=== PATIENT | male | born 1950 | race Caucasian/White ===

== ENCOUNTER 2018-12-01 20:55 | Inpatient (IN) | payer MEDICARE ==
[~2018-12-01] VITALS: Ht 172.7 cm; Wt 140.1 kg
[2018-12-01 21:49] LABS: BASOPHILS ABSOLUTE AUTO 0.02 K/mm3 (0.00-0.23); BASOPHILS PERCENT AUTO 0 % (0-2); EOSINOPHILS ABSOLUTE AUTO 0.03 K/mm3 (0.00-0.68); EOSINOPHILS PERCENT AUTO 0 % (0-6); Hematocrit 32.5 % (37.0-53.0); Hemoglobin 10.9 g/dL (13.5-17.5); IMMATURE GRAN ABSOLUTE AUTO 0.22 K/mm3 (0.00-0.10); IMMATURE GRAN PERCENT AUTO 2 % (0-1); LYMPHOCYTES ABSOLUTE AUTO 0.57 K/mm3 (0.84-5.20); LYMPHOCYTES PERCENT AUTO 5 % (21-46); MONOCYTES ABSOLUTE AUTO 1.04 K/mm3 (0.16-1.47); MONOCYTES PERCENT AUTO 9 % (4-13); Mean Corpuscular HGB 30.1 pg (26.0-34.0); Mean Corpuscular HGB Conc 33.5 g/dL (31.5-36.5); Mean Corpuscular Volume 90 fL (80-100); Mean Platelet Volume 8.8 fL (9.1-12.4); NEUTROPHILS PERCENT AUTO 85 % (41-73); Platelet Count 296 K/mm3 (150-400); RDW Coefficient Variation 13.9 % (11.7-14.2); RDW Standard Deviation 46.2 fL (35.1-46.3); Red Blood Cell Count 3.62 M/mm3 (4.30-5.90); White Blood Cell Count 12.28 K/mm3 (4.00-11.30)
[2018-12-01] MEDS ORDERED: ISODIN20 PO (22:03)
[2018-12-01] MEDS ORDERED: LISI20 PO (22:03)
[2018-12-01] MEDS ORDERED: Zanaflex4 M1 PO (22:04)
[2018-12-01 22:09] LABS: Troponin I <0.015 ng/mL (0.000-0.040)
[2018-12-01 22:19] LABS: Alanine Aminotransfer (ALT/SGP 37 U/L (12-78); Albumin, Blood 2.5 g/dL (3.4-5.0); Albumin/Globulin Ratio 0.7 (0.8-1.8); Alk Phos 91 U/L (50-136); Anion Gap 9 mmol/L (6-16); Aspartate Aminotrans (AST/SGOT 74 U/L (12-37); Bilirubin, Total 0.4 mg/dL (0.1-1.0); Blood Urea Nitrogen 6 mg/dL (8-24); Bun/Creatinine Ratio 11.5 (12.0-20.0); CO2, Blood 22 mmol/L (21-32); Calcium, Blood 7.7 mg/dL (8.5-10.1); Chloride, Blood 83 mmol/L (98-108); Creatinine, Blood 0.52 mg/dL (0.60-1.20); Globulin, Blood 3.7 g/dL (2.2-4.0); Glomerular Filtration Rate >60 (60-); Glucose, Blood 135 mg/dL (70-99); Potassium, Blood 4.3 mmol/L (3.5-5.5); Sodium, Blood 114 mmol/L (136-145); Total Protein, Blood 6.2 g/dL (6.4-8.2)
--- NOTE | 2018-12-02 01:30 | NUR ---
PT ARRIVED TO ICU 15 FROM ER VIA RDISPUTANTA. ACCOMPANIED BY BOARDING MOTHER. PT WAS SOAKING WET WITH URINE. SKIN IS EXCORIATED IN PERIAREA AND DOWN LEGS. ALSO APPEARS TO HAVE YEAST RASH T/O. SEE PHOTOS. PT ALSO HAS BLISTERS TO BILAT FEET. SCROTUM AND PANNUS IS EDEMATOUS. WILL PLACE ANTON DUE TO INCREASED URINE OUTPUT AND SKIN CONDITION. WILL PUT IN SOCIAL SERVICE CONSULT. REPORT FROM ER STATES PT HAS A GUARDIAN THAT HAS BEEN APPOINTED TO HIM RECENTLY. PT KNOWS HE IS IN "THE [facility]", [place], AND [facility]. OTHER QUESTIONS PERTAINING TO ORIENTATION PT JUST STATES "NOPE". GETS SOB WITH EXERTION BUT SPO2 IN THE 90'S.
[2018-12-02 02:16] LABS: Source, Urine Catheter
[2018-12-02 02:19] LABS: Bilirubin, Urine Neg (Neg); Blood, Urine 1+ (Neg); Glucose Qualitative, Urine Neg (Neg); Ketones, Urine Neg (Neg); Leukocyte Esterase, Urine Neg (Neg); Nitrite, Urine Neg (Neg); Protein, Urine 2+ (Neg); Specific Gravity, Urine 1.005 (1.003-1.022); Urobilinogen, Urine NORM (Normal); pH, Urine 6.5 (5.0-8.0)
[2018-12-02 02:31] LABS: Appearance, Urine Clear (Clear); Bacteria Not Seen /hpf; Color, Urine Pale Yellow (P-Yellow); Color, Urine Yellow (P-Yellow); Hyaline Casts 0-2 /lpf (0-2); Red Blood Cells, Urine 0-2 /hpf (0-2); Squamous Epithelial Cells Not Seen /hpf (Few); White Blood Cells, Urine Not Seen /hpf (0-5)
[2018-12-02 03:15] LABS: Influenza A Negative (NEGATIVE); Influenza B Negative (NEGATIVE)
[2018-12-02 04:09] LABS: Hemoglobin 11.9 g/dL (13.5-17.5); Mean Corpuscular HGB 30.1 pg (26.0-34.0); Mean Corpuscular Volume 88 fL (80-100); Mean Platelet Volume 8.5 fL (9.1-12.4); Platelet Count 316 K/mm3 (150-400); RDW Coefficient Variation 13.8 % (11.7-14.2); RDW Standard Deviation 44.5 fL (35.1-46.3); Red Blood Cell Count 3.96 M/mm3 (4.30-5.90); White Blood Cell Count 9.55 K/mm3 (4.00-11.30)
[2018-12-02 04:23] LABS: International Normalized Ratio 0.99; Prothrombin Time Results 10.5 Sec (9.7-11.5)
[2018-12-02 05:07] LABS: Anion Gap 7 mmol/L (6-16); Blood Urea Nitrogen 6 mg/dL (8-24); Bun/Creatinine Ratio 11.4 (12.0-20.0); CO2, Blood 26 mmol/L (21-32); Calcium, Blood 8.3 mg/dL (8.5-10.1); Chloride, Blood 88 mmol/L (98-108); Creatinine, Blood 0.53 mg/dL (0.60-1.20); Glomerular Filtration Rate >60 (60-); Glucose, Blood 101 mg/dL (70-99); Magnesium, Blood 1.8 mg/dL (1.6-2.4); Potassium, Blood 4.2 mmol/L (3.5-5.5); Sodium, Blood 121 mmol/L (136-145)
--- NOTE | 2018-12-02 06:19 | NUR ---
SUMMARY PT HAS BEEN SLEEPING ON AND OFF SINCE ARRIVAL TO ICU. PT IS ORIENTED TO PERSON, PLACE, AND PRESIDENT. OTHERWISE OTHER QUESTIONS HE'LL SAY "NO". WILL WAKE UP AND SAY "PAIN SHOT" THEN GO RIGHT BACK TO SLEEP. SODIUM IMPROVED TO [address] BARRIGA AND NEW ORDERS RECEIVED TO DECREASE 3% TO 20ML/HR. PT HAS HAD 4950ML OF URINE OUTPUT SINCE CATHETER PLACEMENT AROUND 0200. BREATHING HAS IMPROVED AND SPO2 IN THE 90'S.
[2018-12-02] MEDS ORDERED: Isosorbide Mono60 MG PO (06:45)
[2018-12-02] MEDS ORDERED: ARIP10 PO (06:48)
[2018-12-02] MEDS ORDERED: Aspirin EC81 MG PO (06:48)
[2018-12-02] MEDS ORDERED: BUDE6HFA INH (06:49)
[2018-12-02] MEDS ORDERED: Calcium 250+D1 EACH PO (06:50)
[2018-12-02] MEDS ORDERED: DOCU100 PO (06:50)
[2018-12-02] MEDS ORDERED: DOXA4 PO (06:51)
[2018-12-02] MEDS ORDERED: GABA300 PO (06:52)
[2018-12-02] MEDS ORDERED: Flonase 0.05% N16 GM (06:52)
[2018-12-02] MEDS ORDERED: Haldol 5 mg Tab5 MG PO ×2 (06:53)
[2018-12-02] MEDS ORDERED: Loratadine10 MG PO (06:54)
[2018-12-02] MEDS ORDERED: MELA3 PO (06:54)
[2018-12-02] MEDS ORDERED: Zocor20 MG PO (06:57)
[2018-12-02] MEDS ORDERED: Bactrim Ds Tab1 EACH PO (06:58)
[2018-12-02] MEDS ORDERED: Thera-Gesic Ana85 GM TOP (06:59)
--- NOTE | 2018-12-02 07:58 | NUR ---
START OF SHIFT NOTE: PATIENT AWAKENS TO SPEECH, ALERT TO PERSON, PLACE, AND SITUATION, BUT VAGUE ON DATE AND TIME, PATIENT APPEARS LARGELY OBESE, EXCORIATED SKIN NOTED ON ENTIRE LOWER BODY, STARTING AT PERINEUM AND DOWN BOTH LOWER EXTREMITIES, OPEN AREA NOTED IF FROM BROKEN BLISTERS, PATIENT DENIES PAIN, HE IS AFEBRILE, LUNG SOUNDS ARE COARSE, NSR NOTED, BOWEL TONES ARE PRESENT BUT HYPOACTIVE, ANTON CATHETER IN PLACE, PATIENT REFUSED BREAKFAST, STATED "I DON'T EAT YOGHURT, I DON'T EAT OATMEAL", WHEN ASKED WHAT HE WANTED HIS ANSWER WAS "HAM AND CHEESE MCMUFFIN", PATIENT IS ON A 3 % NS DRIP AT THIS TIME, INFUSING AT 20 CC/HR, CALL LIGHT IN REACH, WILL CONTINUE TO MONITOR.
--- NOTE | 2018-12-02 08:58 | NUR ---
PATIENT SWALLOWED AM MEDICATIONS WELL WITH SIPS OF CRANBERRY JIUCE, NO PROBLEMS SWALLOWING, CALL LIGHT IN REACH, WILL CONTINUE TO MONITOR.
--- NOTE | 2018-12-02 09:12 | NUR ---
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 JAMES'S PHONE NUMBER IS [phone].
[2018-12-02 11:03] LABS: Anion Gap 5 mmol/L (6-16); Blood Urea Nitrogen 6 mg/dL (8-24); Bun/Creatinine Ratio 10.7 (12.0-20.0); CO2, Blood 28 mmol/L (21-32); Chloride, Blood 92 mmol/L (98-108); Creatinine, Blood 0.56 mg/dL (0.60-1.20); Glomerular Filtration Rate >60 (60-); Glucose, Blood 105 mg/dL (70-99); Potassium, Blood 4.4 mmol/L (3.5-5.5); Sodium, Blood 125 mmol/L (136-145)
--- NOTE | 2018-12-02 12:52 | NUR ---
CONSULT WAS REQUESTED FROM DR. LUNA TO DR. PEÑA, NEPHROLOGY FOR SEVERE HYPONATREMIA AND CHF, CONSULT WAS CALLED TO ANSWERING SERVICE AT 12:54 ON 12/02/18.
--- NOTE | 2018-12-02 12:52 | NUR ---
PATIENT REFUSED LUNCH, STATED "I HAVE NO TEETH, I CANNOT CHEW THIS MEAT", PATIENT WAS OFFERED A PUREED DIET, HIS ANSWER WAS "BOSHIT, I WANT TURKEY WITH GRAVY AND POTATOES, KITCHEN WAS KIND ENOUGH TO MAKE AN EXCEPTION AND ACCOMODATE PATIENT, THEN PATIENT STARTED ON A TIRAGE "I WANT MY CAREGIVER TO BRING ME FOOD, I WANT TO BE TREATED AT THE [facility], MUCH BETTER SERVICE THERE, I WANT TO SPEAK WITH AN MEN'S SWIM COACH", PATIENT'S GUARDIAN, EBER, WAS NOTIFIED, AND SHE STATED THAT THE PATIENT "CAN BE VERY DIFFICULT, AND WAS DROPPED OFF BY HIS PREVIOUS PHYSICIAN IN FRONT OF HER DOOR", PATIENT WAS NOTIFIED THAT HIS GUARDIAN HAS BEEN NOTIFIED AND HIS ANSWER WAS "BOSHIT", CALL LIGHT IN REACH, WILL CONTINUE TO MONITOR.
--- NOTE | 2018-12-02 13:23 | NUR ---
DR. PEÑA IN TO SEE PATIENT.
--- NOTE | 2018-12-02 14:49 | NUR ---
SPOKE WITH ASIA BACH ABOUT PATIENT'S BEHAVIOR AND DIETARY ISSUES, DIETARY WILL MAKE MORE CHEWABLE FOODS AVAILABLE TO PATIENT, SINCE HE HAS NO TEETH AND DOES NOT OWN DENTURES, PATIENT RECEIVED SECOND LUNCH TRAY AND IS EATING WITH GOOD APPETITE, CALL LIGHT IN REACH, WILL CONTINUE TO MONITOR.
--- NOTE | 2018-12-02 14:54 | NUR ---
DR. LUNA CALLED AND ASKED TO CHANGE NEPHROLOGY CONSULT FROM DR. PEÑA TO DR. CARRILLO.
--- NOTE | 2018-12-02 15:15 | NUR ---
Echocardiogram completed.
[2018-12-02 15:35] LABS: Sodium, Blood 126 mmol/L (136-145)
--- NOTE | 2018-12-02 15:49 | NUR ---
DR. CARRILLO NOTIFIED ABOUT SODIUM RESULT OF 126, NEW ORDERS RECEIVED.
[2018-12-02 16:10] LABS: Osmolality, Serum 257 mos/KG (275-300)
--- NOTE | 2018-12-02 17:55 | NUR ---
SHIFT SUMMARY NOTE: PATIENT IS RESTING COMFORTABLY, SLEPT MOST OF THE DAY, ALSO EATS AND DRINKS CONSTANTLY, PATIENT WAS INITIALLY ON A 3 % NS DRIP, THAT WAS DISCONTINUED WHEN LAB RESULTED IN SODIUM OF 126, PATIENT IS MORBIDLY OBESE AND HAS EXCORIATED SKIN FROM WAIST DOWN, OVERLY EDEMATOUS AND SCROTUM EXTREMELY ENLARGED, ANTON CATHETER IN PLACE, WITH EXTREMELY LARGE URINE OUTPUT, PATIENT RECEIVED BUMEX TWICE TODAY, LUNG SOUNDS COARSE, NSR, BOWEL TONES PRESENT IN ALL FOUR QUADRANTS, DR. LUNA CONSULTED DR. CARRILLO, WHO WAS AT BEDSIDE AND NEW ORDERS WERE GIVEN, PATIENT IS NOW ON A 1000 CC FLUID RESTRICTION, ALSO ON A MECHANICAL SOFT DIET, SINCE PATIENT HAS NO TEETH AND DOES NOT OWN DENTURES, WILL ASK FOR SNACKS AND ICE CREAM FREQUENTLY, STATES THAT "THIS HAS BEEN ONGOING SINCE ", PATIENT IS ALERT AND ORIENTED TO SELF, PERSON AND PLACE, SLIGHTLY VAGUE ON DATE AND TIME, FOR DETAILS SEE SHIFT ASSESSMENT DOCUMENTATION AND NURSES NOTES, CALL LIGHT IN REACH, WILL CONTINUE TO MONITOR, AND GIVE REPORT TO ONCOMING PARAFFINER.
--- NOTE | 2018-12-02 20:00 | NUR ---
ASSUMED PT CARE AT 1915 PT SITTING UP IN BED. VERY DEMANDING WITH CARES. APPEARS TO BE ALERT AND ORIENTED. PT ON A 1L FLUID RESTRICTION; PT AWARE OF RESTRICTION. CONTINUALLY ASKING FOR FOOD AND ICE CREAM; PT GIVEN A TURKEY SANDWICH AND THREE ICE CREAMS; AND STILL ASKING FOR MORE STATING "MY BLOOD SUGAR IS LOW." PT IS REFUSING TO CHANGE POSITIONS IN BED; STATES THAT HE ONLY SLEEPS ON THAT ONE SIDE AND REFUSES TO GET MOVED UP IN THE BED WITH OVERHEAD LIFT, WELL ROLL TO OTHER SIDE. EDUCATED PT ON RISKS OF NOT FREQUENTLY CHANGING POSITIONS AND HE STATED HE DIDN'T CARE AND THAT HE WANTED TO STAY THERE. CALL LIGHT IS WITHIN REACH.
[2018-12-03 04:03] LABS: Hematocrit 36.4 % (37.0-53.0); Hemoglobin 12.1 g/dL (13.5-17.5)
[2018-12-03 04:26] LABS: Albumin, Blood 2.4 g/dL (3.4-5.0); Anion Gap 6 mmol/L (6-16); Blood Urea Nitrogen 15 mg/dL (8-24); Bun/Creatinine Ratio 23.1 (12.0-20.0); CO2, Blood 29 mmol/L (21-32); Calcium, Blood 8.4 mg/dL (8.5-10.1); Chloride, Blood 95 mmol/L (98-108); Creatinine, Blood 0.65 mg/dL (0.60-1.20); Glomerular Filtration Rate >60 (60-); Glucose, Blood 105 mg/dL (70-99); Magnesium, Blood 2.1 mg/dL (1.6-2.4); Phosphorus, Blood 3.1 mg/dL (2.5-4.9); Potassium, Blood 4.6 mmol/L (3.5-5.5); Sodium, Blood 130 mmol/L (136-145); Uric Acid, Blood 4.9 mg/dL (3.5-7.2)
--- NOTE | 2018-12-03 05:26 | NUR ---
END OF SHIFT SUMMARY PT HAS ASKED FOR FOOD FREQUENTLY T/O SHIFT. PT HAS CLEARED THE ICU FRIDGE OF ALL SANDWICHES, AND CHEESE AND CONTINUES TO ASK FOR MORE. INFORMED PT THAT WE CURRENTLY DIDN'T HAVE ANY FOOD BECAUSE OF THE FRIDGE NOT BEING RESTOCKED. PT ADAMANT THAT HE WANTED TO SPEAK WITH MY BOSS. DIRECTOR TEEN POST OBTAINED AND SPOKE WITH PT; PT ADAMANT ABOUT CALLING HIS CAREGIVER TO BRING HIM IN FOOD. PT VERY DEMANDING AND CALLING ON HIS CALL LIGHT AT LEAST EVERY 15 MINUTES IN REGARDS TO FOOD. PT MADE A COMMENT THAT HIS BELLY IS EVEN SMALLER AND THAT HE KNOWS HE HAS LOST MORE THAN 10LBS SINCE BEING HERE. PT REMINDED THAT HE IS ON A WATER PILL THAT IS MAKING HIM GET RID OF A LOT OF WATER; PT STATED NO THAT WASN'T IT. PT UPSET THAT THERE HASN'T BEEN ANY FOOD FOR HIM TO EAT. INFORMED PT THAT BREAKFAST WOULD BE HERE IN A COUPLE HOURS; PT STATED THAT WASN'T GOOD ENOUGH AND WANTED TO EAT NOW.
--- NOTE | 2018-12-03 12:11 | NUR ---
REASSESSMENT: PT REFUSED TO HAVE HIS SODIUM LEVEL DRAWN THIS AM, DR. CARRILLO NOTIFIED. HE HAS BEEN MOSTLY COOPERATIVE. HE WANTS TO SIT ON THE BEDPAN CONTINUOUSLY DESPITE WARNINGS THAT IT WILL CAUSE HIM TO GET SORES. HE IS ALERT, ORIENTED TO PERSON AND PLACE. LUNGS ARE CLEAR, RA, SR, BP STABLE. HE TAKES A LOT FO PERSUASION TO TURN OFF OF HIS R SIDE. HIS GUARDIAN CAME IN AND ASKED FOR PT/OT TO BE ORDERED IN [place] TO GET HIM ON THE WAIT LIST FOR THE [facility] AT THE [place]. DR. LUNA OK'D THAT. SHE ALSO OK'D FOR PT TO MED STATUS WITH NO TELE.
--- NOTE | 2018-12-03 13:14 | NUR ---
TRANSFER: PT TRANSFERRING TO ROOM 339. REPORT GIVEN TO DWAINE CASTRO. ALL BELONGINGS TRANSFERRED WITH PT. PT TRANSPORTED WITH HVAC FIELD SERVICE TECHNICIAN.
--- NOTE | 2018-12-03 14:30 | NUR ---
HANDOFF RECEIVED FROM ICU NURSE TANIA PT TRANSFERED TO MEDICAL FLOOR AT 1319 HOURS PT IS DNR. ADMITED FOR HYPONATREMIA. PT HAS CKD STAGE 2, VOLUME OVERLOAD, LEG EDEMA, BUE EDEMA. HE IS ON ROOM AIR W/CLEAR LUNGS. HE IS A&O BUT AT TIMES UNCOOPERATIVE WITH CARE, REFUSING BATHS. PT HAS A ANTON CATHETER, PATENT AND DRAINING. HE IS 1000 ML FLUID RESTRICTION PER DAY. PT IS MORBIDLY OBESE. DOES DEMAND FOOD AND SWEETS CONTINUALLY. HE DOES USE PROFANITY AT NURSING STAFF. HX OF SCHIZOPHRENIA, BIPOLAR DISORDER, PERSONALITY DISORDER, CHF, AND COPD. HE HAS AN APPOINTED GUARDIAN, ANDRIY. HER PLAN IS TO HAVE HIM BE HOUSED AT THE [place] UPON DISCHARGE. HE HAS A 22 GUAGE IV IN HIS RIGHT HAND. PT ORIENTED TO UNIT, CALL KULKARNI WITHIN REACH.
--- NOTE | 2018-12-03 17:54 | NUR ---
SHIFT SUMMARY PT TRANSFERED FROM ICU TODAY. 68 YR OLD MALE. DNR. ADMITTED FOR HYPONATREMIA. PT IS FLUID OVERLOADED. FLUID RESTRICTION 1000 ML/DAY. PT IS NOT A&O BEYOND 2-3. HE IS CONFUSED AND FORGETFUL. HE DOES KNOW HE IS IN A HOSPITAL. HX: HTN, MORBID OBESITY. CURRENTLY CKD (STAGE 2), BLE EDEMA AND BUE EDEMA. HE IS A RI PT. HX: SCHIZOPHRENIA, BIPOLAR, PERSONALITY DISORDER, CHF, COPD. HE IS A FORMER SMOKER. HIS APPOINTED GUARDIAN IS ANDRIY. PT IS FREQUENTLY UNCOOPERATIVE WITH CARE, REFUSES BATHS AND SOME MEDICATIONS, REQUESTS MEDICATIONS BE CHANGED TO FORMS THAT ARE NOT AVAILABLE. PT REQUESTS FOOD AND SWEETS CONTINUOUSLY. PT USES PROFANITY WITH STAFF. PT IS NOT ABLE TO UNDERSTAND CERTAIN CONCEPTS.GUARDIAN HOPES PT CAN DISCHARGE TO [facility] AT THE [facility].
--- NOTE | 2018-12-04 07:41 | NUR ---
PATIENT WAS ANGRY DEMANDING CURSING AND RESISTANT TO CARE THROUGH THE SHIFT. PATIENT REMAINED FLUID RESTRICTED THROUGHT THE SHIFT HAD WATER ONLY TO TAKE MEDS WITH AND THEN 240 ML THIS MORNING. PATIENT HAD A LARGE AMOUNT OF OUTPUT; 4600+ ML; PATIENT REFUSED TO ALLOW VENIPUCTURE TO DRAW HIS BLOOD THIS MORNING.
[2018-12-04 10:54] LABS: Base Excess Venous 4.8 mmol/L; Bicarbonate Venous 28.7 mmol/L (24.0-30.0); PCO2 Venous 34.8 mmHg (38-42); PO2 Venous 70.7 mmHg (38-42); pH Blood Venous 7.51 (7.34-7.37)
[2018-12-04 10:56] LABS: Hematocrit 39.6 % (37.0-53.0); Hemoglobin 12.7 g/dL (13.5-17.5)
[2018-12-04 11:18] LABS: Free Thyroxine 0.93 ng/dL (0.70-1.60)
[2018-12-04 11:20] LABS: Thyroid Stimulating Hormone 1.55 uIU/mL (0.360-4.800); Triiodothyronine, Free 2.73 pg/mL (2.18-3.98)
[2018-12-04 11:23] LABS: Albumin, Blood 2.5 g/dL (3.4-5.0); Anion Gap 8 mmol/L (6-16); Blood Urea Nitrogen 18 mg/dL (8-24); Bun/Creatinine Ratio 34.4 (12.0-20.0); CO2, Blood 28 mmol/L (21-32); Calcium, Blood 8.9 mg/dL (8.5-10.1); Chloride, Blood 95 mmol/L (98-108); Creatinine, Blood 0.52 mg/dL (0.60-1.20); Glomerular Filtration Rate >60 (60-); Glucose, Blood 135 mg/dL (70-99); Magnesium, Blood 2.1 mg/dL (1.6-2.4); Phosphorus, Blood 3.8 mg/dL (2.5-4.9); Sodium, Blood 131 mmol/L (136-145)
--- NOTE | 2018-12-04 17:58 | NUR ---
SHIFT SUMMARY NO ACUTE CHANGE TODAY. HE IS VERY ARGUMENTATIVE AND UNCOOPERATIVE WITH CARE. HE IS REFUSING FOR STAFF TO PROVIDE MOST CARE FOR HIM. HE DEMANDS SNACKS AND "NITRO CANDY" BUT NO S/SX OF PAIN OR DISCOMFORT. ORDER TO DC ANTON TODAY BUT HE ADAMENTLY REFUSED USING PROFANITY AND YELLING AT NURSING STAFF. NOTIFIED DR HUNT WHO STATED IT COULD STAY IN OVERNIGHT FOR HIS 24 URINE BUT MUST COME OUT TOMORROW. ATTEMPTED TO EDUCATE PATIENT WHO CONTINUED TO BE AGITATED AND USE PROFANITIES HE REFUSED THIS. [facility]
--- NOTE | 2018-12-04 22:24 | NUR ---
19:30 PER PATIETN REQUEST SPOKE TO DR LASSITER AND REQ SLEEP AID. RECEIVED ORDER FOR PO MELATONIN 3-6 MG AT HS FOR INSOMNIA
[2018-12-05 17:33] LABS: Protein, Urine Quantitative 107.9 mg/dL (0.0-11.9)
--- NOTE | 2018-12-05 19:09 | NUR ---
SHIFT SUMMARY: PT WAS NOT ABLE TO WORK WITH PHYSICAL THERAPY TODAY OR FOLLOW INSTRUCTIONS. MOODS WERE COOPERATIVE AT TIMES AND LABILE AT OTHER TIMES. ANTON CATH WAS D/C'D AND 24 HR URINE SENT TO LAB. HE IS TOLERATING PO INTAKE. NEEDS FREQ REMINDERS FOR FLUID RESTRICTION. NO OTHER ACUTE CHANGES NOTED.
[2018-12-06 05:45] LABS: Hemoglobin 12.5 g/dL (13.5-17.5)
[2018-12-06 06:05] LABS: Albumin, Blood 2.6 g/dL (3.4-5.0); Anion Gap 4 mmol/L (6-16); Blood Urea Nitrogen 22 mg/dL (8-24); Bun/Creatinine Ratio 36.4 (12.0-20.0); CO2, Blood 29 mmol/L (21-32); CPK Creatine Kinase 278 U/L (39-308); Calcium, Blood 8.9 mg/dL (8.5-10.1); Chloride, Blood 101 mmol/L (98-108); Glomerular Filtration Rate >60 (60-); Glucose, Blood 110 mg/dL (70-99); Magnesium, Blood 2.3 mg/dL (1.6-2.4); Phosphorus, Blood 3.6 mg/dL (2.5-4.9); Potassium, Blood 4.3 mmol/L (3.5-5.5); Sodium, Blood 134 mmol/L (136-145)
--- NOTE | 2018-12-06 15:37 | NUR ---
ANY THERAPY: PLEASE COORDINATE WITH CARE GIVERS FOR ENHANCED PATIENT COOPERATION. BENITO SAPP [phone] OR JAMA [phone]. THEY CAN BE COME IN TO ASSIST WITH PT/OT CARES. THEY CAN COME MOST ANY TIME IF THEY HAVE A 30 MIN ADVANCED NOTICE.
--- NOTE | 2018-12-06 18:34 | NUR ---
SHIFT SUMMARY: HIS MOODS ARE VERY LABILE. WITH A GREAT DEAL OF PROMPTING HE WAS AGREEABLE TO WORKING WITH O/T. THIS AFTERNOON WAS NOT ABLE TO FOLLOW COMMANDS OR PARTICIPATE IN P/T CARE. HE IS INCONT AND REFUSES TO USE A URINAL. PAD IN PLACE WITH AIR CHUCKS UNDERNEATH; CHANGED MULTIPULE TIMES T/O SHIFT. HE NEEDS FREQUENT REMINDERS FOR FLUID RESTRICTION. TOLERATING PO INTAKE. MICHELL FROM CARE MANAGEMENT IN TO SEE PT THIS AFTERNOON.
--- NOTE | 2018-12-07 04:25 | NUR ---
SHIFT SUMMARY: PT IS ALERT AND ORIENTED. PT IS IRRITABLE WITH STAFF AT TIMES AND COOPERATIVE PART OF THE TIME, ANGERS EASILY WHEN HE DOESN'T GET WHAT HE WANTS. PT USES HIS CALL LIGHT OBSESSIVELY, INSTRUCTED HIM TO NOT DO THIS. PT INCONTINENT OF BOWEL AND BLADDER OVERNIGHT, CHANGED AND CLEANED NEEDED. PT REPORTS BL KNEE PAIN, MEDICATING PER EMAR. PT DENIES NAUSEA, VOMITING, AND SOB. NO ACUTE CHANGES OR COMPLICATIONS OVERNIGHT. BED IN LOW POSITION, CALL LIGHT WITHIN REACH. WILL REPORT TO DAY NURSE.
[2018-12-07 05:30] LABS: Hematocrit 37.2 % (37.0-53.0); Hemoglobin 11.9 g/dL (13.5-17.5)
[2018-12-07 05:50] LABS: Albumin, Blood 2.6 g/dL (3.4-5.0); Anion Gap 4 mmol/L (6-16); Blood Urea Nitrogen 21 mg/dL (8-24); Bun/Creatinine Ratio 37.8 (12.0-20.0); CHOL/HDL RATIO 1.8; CO2, Blood 29 mmol/L (21-32); Calcium, Blood 8.9 mg/dL (8.5-10.1); Chloride, Blood 103 mmol/L (98-108); Cholesterol 144 mg/dL (50-200); Creatinine, Blood 0.56 mg/dL (0.60-1.20); Glomerular Filtration Rate >60 (60-); Glucose, Blood 106 mg/dL (70-99); HDL Cholesterol 80 mg/dL (>39); LDL/HDL RATIO 0.7; Low Density Lipoprotein Chol 52 mg/dL (0-110); Magnesium, Blood 2.2 mg/dL (1.6-2.4); Phosphorus, Blood 3.4 mg/dL (2.5-4.9); Potassium, Blood 4.2 mmol/L (3.5-5.5); Sodium, Blood 136 mmol/L (136-145); Triglycerides 58 mg/dL (30-160); Very Low Density Lipoprot Chol 11 mg/dL (6-32)
--- NOTE | 2018-12-07 16:02 | NUR ---
SHIFT SUMMARY- PT A/O TO PERSON AND PLACE. PT IRRITABLE AND ANGRY AT TIMES. PT MEDICATED X1 WITH TYLENOL FOR KNEE PAIN/ "ALL OVER" PAIN. LS DIMINISHED, ON RA. HRR. PT INCONT OR URINE AND STOOL. PT HAS GUARDIAN THAT IS ATTEMPTING TO FIND PLACEMENT FOR PT, POSSIBLE AT [facility]. PT REFUSING TO WORK WITH PT/OT, W/C BOUND AT BASELINE. LIFT FOR TRANSFERS OUT OF BED. PT CURRENTLY AWAITING PLACEMENT. NO OTHER ACUTE CHANGES THIS SHIFT.
--- NOTE | 2018-12-07 16:05 | NUR ---
REPORT GIVEN TO DWAINE REYNOLDS TO ASSUME CARE OF PT.
--- NOTE | 2018-12-07 17:52 | NUR ---
Mr. Alvarez was irritable and agrumentative at first. He wanted me to debate with him the fact that "Catholics are not Christians.) When I refused to engage, but continued to smile and encourage him, he reached out for my hand and softend his tone. I suspect he has some long-standing mental health issues that keep most people away from him, and by not becoming defensive or angry, it appeared to difuse him. We had a pawan chat about [facility] and things he used to enjoy doing. He is not concerned about his future and cannot tell me what he expects going forward. Clearly, he can be a difficult man, but he appered to enjoy copmpanionship and lighthearted conversation. I got him some marta with RN permission, and he was smiling when visit ended. He does appear to be quite alone inthe world. Hydrate Control Tender services will remain available.
--- NOTE | 2018-12-08 02:15 | NUR ---
INCONT OF BOWEL TWICE. VSS, AFEBRILE, A/O. PT MADE BM ALL OVER HIS BED - TWICE SO FAR IN THIS SHIFT. HE LAUGHED AT STAFF THE FIRST TIME, STATING "REMEMBBER. I CAN SHIT ANY TIIME THAT I WANT TO." HE REMOVED HIS OWN GOWN, SHEETS AND WIPED HIMSELF ON THE BLANKET. THEN HE DEMANDED MORE ICE CREAM AND ANTIBIOTICS FOR HIS LEGS. PT WAS INFORMED THAT THE PROVIDER WILL DETERMINE IF ANTIBIOTICS ARE AN APPROPRIATE TREATMENT FOR HIM. THEN, LESS THAN 2 HOURS LATER, HE DID IT ALL AGAIN. THE SECOND TIME HE STATED "I'M GOING TO DO IT AGAIN UNLESS YOU GIVE ME ICE CREAM OR PUDDING! I'M ENTITLED TO THREE MEALS A DAY AND TWO SNACKS. YOU HAVE'T BROUGHT ME ANY SNACKS TONIGHT AT ALL!" PT HAS BEEN GIVEN 2 ORANGE SHERBERTS, ONE PUDDING AND ONE SANDWHICH SINCE CHANGE OF SHIFT. PT'S BOTTOM IS VERY RED, EXCORIATED AND IRRITATED BY FREQUENT BM'S. PT STOOL IS THICK, PASTY AND IT STICKS TO EVERYTHING. PT IS NOW DEMANDING HIS THIRD PAIR OF SOCKS AND ANTIBIOTICS FOR HIS LEGS. WILL CONTINUE TO MONITOR.
--- NOTE | 2018-12-08 02:41 | NUR ---
PT IS MAKING THREATS AGAINST STAFF. PT INSISTS THAT HE IS NOT GETTING 3 MEALS A DAY AND 2 SNACKS. HE ALSO INSISTS THAT THE ORANGE SHERBERT THAT HE GOT EARLIER DOESN'T COUNT A SNACK BECAUSE HE TOOK HIS MEDS WITH IT. PT STATES "GIVE ME A FUCKING SNACK OR I'M GOING TO GET PISSED OFF AND KILL YOU". PT IS NOT ON A CALORIE RESTRICTED DIET. PT WILL BE PROVIDED WITH SEVERAL SNACKS TO APPEASE HIM.
--- NOTE | 2018-12-08 05:07 | NUR ---
VSS, AFEBRILE, A/O, PT HAS MADE 3 BM'S THIS SHIFT. PT MAKES HIS BM IN THE BED, THEN STRIPS HIMSELF AND HIS BED OF ALL LINENS, AND THEN LIES NAKED ON THE BARE MATTRESS UNTIL STAFF COME TO CLEAN HIM UP. PT HAS BEEN UNCOOPERATIVE, THREATENING STAFF, AND INAPPROPRIATE IN HIS DEMEANOR WITH STAFF. HIS PRIMARY FOCUS IS TO MANIPULATE OTHERS TO GIVE HIM FOOD. HE APPEARS TO BE DELIGHTED THAT STAFF MUST WASH HIM COMPLETELY AFTER EACH BM. IT IS UNCLEAR WHAT HE HOPES TO GAIN FROM THIS TYPE OF BEHAVIOR. WILL REPORT TO ON-COMING SHIFT.
--- NOTE | 2018-12-08 06:31 | NUR ---
INCONT OF STOOL AGAIN. PT HAS ONCE AGAIN MADE A BM ALL OVER HIMSELF AND THE BED. HE HAS, AGAIN, REMOVED ALL OF THE LINENS AND USE SOME OF THEM TO WIPE HIMSELF. HE WAS LAYING IN HIS OWN EXCREMENT AND REFUSING TO TURN OVER TO PERMIT STAFF TO CLEAN HIM. HE HAS WIPED STOOL ONTO THE SIDE RAILS. DR CARRILLO CAME INTO THE ROOM AND THE PT STARTED YELLING LOUDLY THAT HE WANTED ANTIBIOTICS. DR CARRILLO GAVE VERBAL ORDERS TO USE LOTRISONE AND NYSTATIN CREAM ON THE GROIN AND UNDER PANNIS AREA THRU TO THE GLUTEAL CLEFT TO FIGHT THE FUNGAL INFECTION THERE. PT STILL CONTINUED TO CURSE AT HIS CAREGIVERS WHILE HE LAID IN HIS OWN EXCREMENT. PT SUDDENLY ROLLED OVER AND PERMITTED HIMSELF AND HIS BED TO BE CLEANED, BUT IT IS UNCLEAR WHAT MOTIVATED HIM TO DO THAT. WILL REPORT TO ON-COMING SHIFT.
[2018-12-08 07:14] LABS: HBSAG SCREEN Negative (Negative); HEP A AB, IGM Negative (Negative); HEP B CORE AB, IGM Negative (Negative); HEP C VIRUS AB <0.1 (0.0-0.9)
--- NOTE | 2018-12-08 18:13 | NUR ---
ASKED PATIENT FOR A URINE SAMPLE VIA URINAL, PATIENT REFUSED. OFFERED TO PLACE A CONDOM CATH ON PATIENT FOR A URINE SAMPLE AND HE REFUSED THAT WELL. STATED THAT I CAN WRING OUT THE PEE FROM HIS BED LINENS FOR URINE SAMPLE.
--- NOTE | 2018-12-08 19:03 | NUR ---
SHIFT SUMMARY: NO ACUTE CHANGES TO REPORT THIS SHIFT. PT A&O; IRRITABLE; UNCOOPERATIVE WITH CARE. MEDICATED FOR PAIN PER EMAR. MEDICALLY STABLE, AWAITING PLACEMENT. REPORT GIVEN TO ONCOMING RN.
--- NOTE | 2018-12-08 20:53 | NUR ---
PATIENT YELLING AND CURSING IN ROOM. NON COMPLIANT WITH CARE. TRYING TO EXIT BED. SWING ARMS AT STAFF. BED ALARM ACTIVATED. WILL CONTINUE TO MONITOR.
--- NOTE | 2018-12-08 22:55 | NUR ---
PATIENT CONTINUE TO YELL AND CURSE IN ROOM. PATIENT ACTIVATED CALL LIGHT MULTIPLE TIMES IN A ROW WITH A FLUID RESTRICTION ASKING FOR MORE TO DRINK. WILL CONTINUE TO MONITOR.
--- NOTE | 2018-12-09 00:05 | NUR ---
PATIENT USING CALL LIGHT MULTIPLE TIMES IN A ROW FOR MORE FLUIDS. PATIENT EDUCATED ON THE PROPER USE OF CALL LIGHT. PATIENT GIVEN ANOTHER 100 mL OF FLUIDS WITHIN HIS LIMIT. CALL LIGHT IN REACH. WILL CONTINUE TO MONITOR.
--- NOTE | 2018-12-09 00:09 | NUR ---
PATIENT REPORTED R KNEE PAIN AND TROUBLE SLEEPING. LIQUID TYLENOL 650 MG GIVEN PER EMAR FOR PAIN AND MELATONIN 3 MG PRN FOR INSOMNIA.
--- NOTE | 2018-12-09 03:48 | NUR ---
SHIFT SUMMARY PATIENT YELLED AND CURSED T/O SHIFT AT STAFF. NON COMPLIANT WITH CARE. AXO X 3 W/C BOUND, BEDFAST. PIV REMAINS INTACT. LIQUID TYLENOL GIVEN FOR RIGHT KNEE PAIN. PATIENT SWUNG ARMS AT STAFF. REFUSED LAST SET OF VITALS. NON COMPLIANT WITH FLUID RESTRICTIONS. DENIES SOB AND N/V. REPEATEDLY HELD DOWN CALL LIGHT. YELLS OUT INTO SILVA FOR ASSISTANCE. CALL LIGHT IN REACH. BED IN LOWEST POSITION. WILL CONTINUE TO MONITOR UNTIL DAY SHIFT NURSE ASSUMES CARE.
[2018-12-09 14:08] LABS: ANA DIRECT Negative (Negative); ANTIMYELOPEROXIDASE (MPO) ABS <9.0 U/mL (0.0-9.0); ANTIPROTEINASE 3 (PR-3) ABS <3.5 U/mL (0.0-3.5); ATYPICAL PANCA <1:20 titer (Neg:<1:20); CYTOPLASMIC (C-ANCA) <1:20 titer (Neg:<1:20); PERINUCLEAR (P-ANCA) <1:20 titer (Neg:<1:20)
[2018-12-09 15:07] LABS: ALBUMIN 2.8 g/dL (2.9-4.4); ALPHA-1-GLOBULIN 0.3 g/dL (0.0-0.4); ALPHA-2-GLOBULIN 0.9 g/dL (0.4-1.0); GAMMA GLOBULIN 0.9 g/dL (0.4-1.8); GLOBULIN, TOTAL 3.1 g/dL (2.2-3.9); IMMUNOGLOBULIN A, QN, SERUM 288 mg/dL (61-437); IMMUNOGLOBULIN G, QN, SERUM 793 mg/dL (700-1600); IMMUNOGLOBULIN M, QN, SERUM 89 mg/dL (20-172); M-SPIKE Not Observed g/dL (Not Observed); PROTEIN, TOTAL, SERUM 5.9 g/dL (6.0-8.5)
--- NOTE | 2018-12-09 17:22 | NUR ---
PT AOX3 WITH SOME BEHAVIOR PROBLEMS. PT WILL REFUSE CARE AT TIMES AND WILL CALL FOR FOOD, PAIN MEDS ETC. PT WILL NOT CALL TO USE BED KIM AND WILL MAKE A MESS ALL OVER IN HIS BED WHEN HE DOES. PT COOPERATIVE AT TIMES AND THEN WILL START ARGUING ABOUT CARE OR THINGS THAT CAN NOT BE CHANGED. THIS REGENERATOR OPERATOR HAS DEVELOPED A WORKABLE RELATIONSHIP, BUT PT CAN BE A CHALLENGE TO INTERACT WITH. WILL CONTINUE TO MONITOR.
--- NOTE | 2018-12-09 22:24 | NUR ---
PATIENT INCREASE AGITATION NOTED. PATIENT YELLING AT STAFF AND NONCOMPLIANT WITH CARE. PATIENT WAS COOPERATIVE AT CHANGE OF SHIFT, VITALS, AND TOOK HIS MEDICATION. WILL CONTINUE TO MONITOR.
--- NOTE | 2018-12-10 02:14 | NUR ---
PATIENT UNCOOPERATIVE WITH CARE. PULLED AND THREW HIS ATTENDS OFF AND ON TO FLOOR.
--- NOTE | 2018-12-10 03:24 | NUR ---
SHIFT SUMMARY PATIENT HAD NO ACUTE CHANGES OBSERVED THIS SHIFT. AXO X3 W/C BOUND AND BEDFAST. PATIENT CONTINUES TO BE NOT COOPERATIVE WITH CARE YELLING AT STAFF AND CURSING. PATIENT THROWS ATTENDS ON TO THE FLOOR. DEMANDING FOOD AND LIQUIDS WHEN ON A FLUID RESTRICTION DIET 1,300 mL. PIV REMAINS INTACT. TAKES MEDICATION WHOLE WITH WATER AND ICE CREAM. LIQUID TYLENOL FOR KNEE AND FOOT PAIN. INCREASE AGITATION STARTED THREE HOURS INTO SHIFT. HOLDS CALL LIGHT BUTTON DOWN. REPEATS HE WANTS INTERVENTIONS DONE WHEN THEY WERE ALREADY COMPLETED. CALL LIGHT IN REACH. BED IN LOWEST POSITION. WILL CONTINUE TO MONITOR UNTIL DAY SHIFT NURSE ASSUMES CARE.
--- NOTE | 2018-12-10 06:02 | NUR ---
PATIENT BECOMING AGITATED AND YELLING IN ROOM. PULLED HIS ATTENDS OFF AND THREW ON FLOOR. VERBALLY SEXUALLY INAPPROPRIATE TO FEMALE STAFF. UNABLE TO REORIENT AT THIS TIME. CALL LIGHT IN REACH.
--- NOTE | 2018-12-10 06:06 | NUR ---
PATIENT VERBALLY RAMBLING AND CURSING IN ROOM. UNABLE TO ORIENT AT THIS TIME.
--- NOTE | 2018-12-10 06:09 | NUR ---
PATIENT REFUSED AM VITALS.
--- NOTE | 2018-12-10 17:44 | NUR ---
PT HAS BEEN AOX3 WITH A LOT OF FLIGHTS OF FANCY TODAY. PT IS HARD TO GET TO SPEAK DIRECTLY AND CAN BE DIFFICULT TO WORK WITH. PT CONTINUES TO SOIL BED AND REFUSED TO TRY AND CALL WHEN HE NEEDS TO HAVE A BM. PT STATED DURING CLEAN UP HE SHOULD START TO THROW HIS BMS NEXT TIME. THIS FEDERAL AID COORDINATOR COULD REDIRECT HIM AND HAD TO GO IN MULTIPLE TIME TO REMIND HIM TO BE NICE TO HIS AID HELPING HIM. PT STAYS IN BED. NYSTATIN APPLIED TO ALL RED AREAS. PAIN TREATED PER EMAR.PT WAS VERY LOUD TODAY VOCALLY. GAVE REPORT TO NURSE PRIOR TO PT MOVING TO 350. PT WAS NOT DISTRESS UPON CHANGING ROOMS.
--- NOTE | 2018-12-10 19:45 | NUR ---
PATIENT TRANSFERED FROM ROOM 340. PATIENT IS ON BEDREST. WHEN ARRIVED PATIENT APPEARED TO BE AGGRESSIVE, WAS YELLING OUT AT STAFF AND THROWING FECES ON THE FLOOR. PATIENT REPOSITIONED Q2 HRS NEEDED. NO C/O SOB OR NAUSEA. BED ALARM IN PLACE. NO ACUTE CHANGES.
--- NOTE | 2018-12-11 06:01 | NUR ---
SHIFT SUMMARY: PT IS ALERT AND ORIENTED WITH SOME DEGREE OF CONFUSION. PT IS AGITATED OFTEN AND VERY RUDE TO STAFF, VERY DEMANDING AND DEMEANING. PT IS W/C BOUND AT BASELINE. PT SOILS HIMSELF INTENTIONALLY AND PULLS OFF ALL BEDDING, NEW BEDDING PUT ON SEVERAL TIMES AND REMOVED SEVERAL TIMES. PT CONSTANTLY DEMANDING FOOD AND YELLING AT STAFF. PT PULLED OFF THE HEAD OF HIS BED TWICE, HE WAS INSTRUCTED TO STOP DOING THIS. PT REPORTS PAIN, GIVING PRN TYLENOL. PT DENIES NAUSEA, VOMITING AND SOB.
--- NOTE | 2018-12-11 18:11 | NUR ---
SHIFT SUMMARY THE PATIENT PRESENTED THIS SHIFT WITH YELLING AND CURSING AT THE STAFF, AND WITH URINATING AND HAVING A BOWEL MOVEMNET ON THE BED AFTER PULLING ALL THE BLANKETS AND SHEETS OFF THE BED. THE PATIENT HAS BEEN HOSTILE TOWARD THE STAFF ALL SHIFT AND HAS NOT ALLOWED THE CNAS PUT NEW BEDDING BACK ON HIS BED, WITHOUT PULLING IT RIGHT BACK OFF. THE PATIENT'S VITALS HAVE BEEN WNL, HE IS A&O X3 AND HIS LUNGS WERE CLEAR, BUT DIMINISHED. THE PATIENT IS LYING ON HIS BED AT THIS TIME, WILL CONTINUE TO MONITOR.
--- NOTE | 2018-12-12 04:53 | NUR ---
SHIFT SUMMARY: PT IS ALERT AND ORIENTED WITH SOME DEGREE OF CONFUSION, EXSTENSIVE PSYCH HISTORY. PT CONTINUES TO BE VERBALLY ABUSIVE TO STAFF. PT CONTINUES TO INTENTIONALLY SOIL HIS BED, REFUSED HELP CLEANING HIS PERSON, HOUSEKEEPING MOPPED FLOOR AND CLEANED BED. WE WERE ABLE TO GET PT INTO A W/C DURING THE CLEANING BUT HE WOULD NOT ALLOW STAFF TO FULLY CLEAN HIM, CURRENTLY IN THE W/C. PT DID NOT SLEEP MUCH AGAIN OVERNIGHT, MAYBE FOR AN HOUR NEAR THE START OF SHIFT. CONTINUES TO CONSTANTLY DEMAND DRINKS, FOODS, AND MEDICATIONS. WILL REPORT TO DAY NURSE.
--- NOTE | 2018-12-12 16:52 | NUR ---
SHIFT SUMMARY THE PATIENT PRESENTED THIS MORNING WITH VITALS WNL, A&O TO SELF, AND WITH CLEAR LUNGS. THE PATIENT WAS UP IN HIS WHEELCHAIR AT THE START OF THE SHIFT AND HAS BEEN IN AND OUT OF THE HALLWAY. THE PATIENT STARTED TO BE INAPROPERIATE AND WAS SENT BACK TO HIS ROOM. THE PATIENT HAD A VISITOR THIS SHIFT. THE PATIENT IS IN HIS ROOM AT THIS TIME, WILL CONTINUE TO MONITOR.
--- NOTE | 2018-12-13 00:08 | NUR ---
Pt remains in his wheelchair all the time being very loud and will not keep any clothes on. Pt has bowel movements in his wheelchair and will not get out of it so we can clean him up. Pt not getting any sleep. Pt states he only needs one hour a night.
--- NOTE | 2018-12-13 02:25 | NUR ---
12/13/18 0230 PT STILL UP IN W/C. REFUSES TO GO TO BED. REFUSES TO FOLLOW FLUID RESTRICTION AND CONTINUALLY ASKS FOR SODA OR SNACKS. BECOMES BELLIGERENT WHEN NOT ABLE TO GET SNACKS/FLUIDS OR REMAIN NAKED IN W/C. BECOMES THREATENING WHEN CONFRONTED ON HOSPITAL RESTRICTIONS/RULES.
--- NOTE | 2018-12-13 06:15 | NUR ---
Pt refusing all nursing cares. Pt refused blood pressure. Screaming out in hallway. Pt refusing to get out of wheelchair for pericare- pooping on the floor intentionally. Security called to get pt back in bed. Pt has not slept all night.
--- NOTE | 2018-12-13 06:54 | NUR ---
12/13/18 0600 SECURITY CALLED TO HELP PUT PT INTO ROOM AND BED. PT HAD REFUSED TO GET CLEANED AFTER HAVING BM IN W/C. DELIVERY ROOM SUPERVISOR, CONY, ALSO HERE TO HELP. NYSTATIN CREAM APPLIED TO RT LOWER LEG PER C/O ITCHING. SEE PREVIOUS NOTES FOR MORE INFO.
--- NOTE | 2018-12-13 19:16 | NUR ---
PT TALKING AND CALLING OUT MOST OF THE SHIFT TODAY. CONFUSED WITH OCCASIONAL VISUAL HALLUCINATIONS. PT THROWING BEDDING AND ATTENDS ON THE FLOOR, PULLING HEAD BOARD OFF OF BED AND THROWING ON THE FLOOR. 50MG PRN SEROQUEL GIVEN, WILL MONTIOR AND REPORT TO ONCOMING RN
--- NOTE | 2018-12-14 04:58 | NUR ---
SHIFT SUMMARY PT HAS CONTINUALLY YELLED OUT T/O SHIFT. PT REMOVED ALL BEDDING AND ATTENDS. PT GIVEN MEDS IN EVENING WITH PT SLEEPING FOR SEVERAL HOURS. PT REMOVED HEADBOARD OF BED AND THREW IT ON FLOOR. THIS AM PT WOKE UP YELLING. PT DID QUIET DOWN WITH PRN SEROQUEL. PT CURRENTLY AWAKE AND IN NO DISTRESS. CALL LIGHT IN REACH AND BED ALARM ON.
--- NOTE | 2018-12-14 07:50 | NUR ---
PT HAS PULLED OFF ALL LINEN FROM HIS BED, THROWN HIS BRIEF ONTO THE FLOOR, THROWN HIS DRINKS ON FLOOR, URNIATED AND DEFECATED ON THE BED. PT AND ROOM CLEANED AND STRAIGHTENED UP. WILL MONITOR
--- NOTE | 2018-12-14 10:00 | NUR ---
PT YELLING AND CALLING OUT, THREW BREAKFAST DISHES AND TRAY ONTO THE FLOOR. ALL LINENS AND ATTENDS ONTO THE FLOOR.
--- NOTE | 2018-12-14 10:30 | NUR ---
PRN SEROQUEL GIVEN, WILL MONITOR
--- NOTE | 2018-12-14 17:00 | NUR ---
PT YELLING AND CALLING OUT, THROWING ANYTHING HE CAN REACH. PRN SEROQUEL GIVEN TO ASSIST WITH CALMING. SEE EMAR
--- NOTE | 2018-12-14 17:56 | NUR ---
NO ACUTE CHANGES NOTED THIS SHIFT. WILL CONTINUE TO MONITOR AND REPORT TO ONCOMING RN
--- NOTE | 2018-12-15 04:58 | NUR ---
SUMMARY: PT IS CONFUSED EXCEPT TO SELF W/LABILE MOOD AND UNPREDICTABLE BEHAVIOR. HE'S VERBALLY ABUSIVE, HAS NONSENSICAL CONSTANT COVERSATIONS TO SELF AND APPEARS TO HAVE AUDITORY AND VISUAL HALLUCINATIONS. HE'S NONCOMPLIANT W/CARE AND ADL'S, REFUSING CLOTHES, BED LINEN, SCDS, CONT BIOX AND ASSISTANCE W/BED MOBILITY. HE'S INCONTINENT, REFUSES URINAL AND ATTENDS AND CHOOSES TO URINATES IN BED OR ON THE FLOOR. PT THROWS ANYTHING IN REACH AND IS KNOWN TO [employer] STAFF. HIS HEADBOARD IS DETACHED D/T PT REMOVING IT AND THROWING IT AT STAFF. HE DEMANDS FOOD AND FLUIDS OFTEN AND IS NONCOMPLIANT W/1300ML FR. PT DOES TAKE MEDS LONG THEY'RE PROVIDED W/SHERBET ICE CREAM. PRN SEROQUEL WAS PROVIDED D/T INCREASED AGGITATION, YELLING AND AGGRESSIVE BEHAVIOR; EFFECT WAS TEMPORARY. HE'S GROSSLY OBESE AND REFUSES POWDER/CREAM TO BE APPLIED TO SKIN AREAS. PT WON'T ALLOW MEPILEXES TO BE PLACED TO COCCYX EITHER. SKIN IS PEELING TO BLE'S AND GROIN, AISHWARYA AREA, PANUS AND BUTTOCKS ARE RED/RASHY. NO ACUTE CHANGES. VSS AT HS BUT REFUSED THEM THIS AM. HE DIDN'T SLEEP AT ALL AND WAS DISRUPTIVE TO THOSE AROUND HIM. PT AWAITING PLACEMENT AND HAS BEEN COMMITTED TO PSYCH FACILITIES TO 30+ YEARS UNTIL RECENTLY. HE IS NOW HOMELESS STAYING IN [facility]. WILL MONITOR/REPORT TO DAY RN.
--- NOTE | 2018-12-15 16:49 | NUR ---
summary PT IS A/O X2-3 HOWEVER DOES NOT COOPERATE WITH QUESTIONS, WILL RESPOND IN OUTLANDISH WAYS, MAKES BIZZARE STATEMENTS, YELLS OUT VULGARITIES, LOUD BIZZARE LAUGHTER. HE REFUSES TO ALLOW SHEETS ON BED. REFUSES URINAL, BEDPAN, OR ATTENDS. VOIDS & DEFACATES ON HIMSELF THEN DEMANDS TO BE CLEANED UP. ATTEMPTS @ REDIRECTION UNSUCCESSFUL. REWARD SYSTEM MINIMALLY SUCCESSFUL. HE HAS TAKEN HIS MEDS WITH [facility]. PRN SEROQUEL GIVEN X3 TODAY FOR AGITATION. DR KHAN ADD TO PRN MEDS FOR AGITATION. 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 HE FEEDS HIMSELF THEN THROWS CONTAINERS ON FLOOR. DR KHAN PLACE ORDER FOR INPT PSYCHE FACILITY, [facility] ATTEMPTING TO ARRANGE TRANSFER. VSS THIS AM, PT REFUSE AFTERNOON VS.
--- NOTE | 2018-12-15 19:56 | NUR ---
REFUSING ASSESSMENT PT REFUSING ASSESSMENT, BECOMES RATHER COMBATIVE. PT CONT TO REFUSE TO WEAR ATTENDS, URINATING FREELY IN BED. PRESSURED, NONSENSICAL SPEECH.
--- NOTE | 2018-12-15 22:03 | NUR ---
AGITATION PT INCREASINGLY AGITATED, YELLING OUT PROFANITY FOR HOURS AND DISRUPTING OTHER PATIENTS. BEDTIME SEROQUEL OF 300 MG PROVIDES NO RELIEF. ADINISTERED IM B52 INJECTION. PT AGREEABLE AND AWARE OF INJECTION. PT NOW QUIET AND RESTING.
--- NOTE | 2018-12-16 05:16 | NUR ---
LINEN CHANGE AND PERSONAL CARE PT ALLOWS FULL LINEN PLACEMENT, ATTENDS, AISHWARYA CARE, MEPILEX PLACEMENT/WOUND CARE THIS MORNING. THIS IS AFTER PT HAS INCONTINENT VOID THAT COMPLETELY FLOODS BED AND CREATES A 3' X 3' PUDDLE ON THE GROUND.
--- NOTE | 2018-12-16 06:04 | NUR ---
SHIFT SUMMARY: PT IS BASELINE SELF TONIGHT. CONSTANTLY CALLING OUT PROFANITY, DEMANDING, RUDE TO STAFF. PT SCREAMING AT A VERY HIGH LEVEL, DISRUPTING OTHER PT'S ON UNIT. ADMINSITERED PRN B52 IM INJECTION. PT HAS BEEN SLEEPING SINCE ADMINSITRATION UNTIL ABOUT 0530. UPON WAKING, PT COMPLETELY SOAKED BED AND FLOOR, AND LAUGHED AND CURSED AT STAFF THIS RN AND ENVIRONMENTAL LEAD CLEANED PT AND BED. PT DID ALLOW LINEN TO BE PLACED AND ATTENDS TO BE PUT ON. ALSO ALLOWED MEPLIEX TO COCCYX, WHICH HAS A STAGE 2-3 PRESSURE ULCER. PT HAS MET 1300 ML FLUID RESTRICTION; RESTARTS AT 0600. NO OTHER CHANGES TO REPORT . WILL CONT TO MONITOR AND PROVIDE CARE UNTIL PRESUMED BY ONCOMING RN.
--- NOTE | 2018-12-16 11:42 | NUR ---
PT CONTINUES GRANDIOSE, BIZZARE. REFUSES TO ALLOW US TO PLACE HIM IN ATTENDS, USE URINAL OR PLACE SHEETS/ABSORBANT PADS ON BED. URINATE ON BED & FLOOR. HE WAS VERBALLY ABUSIVE/THREATENG TOWARD DEVELOPMENTAL BEHAVIORAL PHYSICIAN, REFUSING TO ALLOW CLEAN-UP & CARE. SPOKE TO & REDIRECTED PT. HE IS RECEPTIVE TO HALDOL/ATIVAN/BENADRYL TX IM, GIVEN. HE APPEARS LESS AGITATED. HE HAS AGREED NOT TO THROW FOOD, UTENSILS OR GARBAGE ON FLOOR & HAS GENERALLY USED GARBAGE CAN THIS AM. WILL CONTINUE TO MX
--- NOTE | 2018-12-16 20:51 | NUR ---
REFUSES ASSESSMENT AGAIN TONIGHT, LAUGHS, MOCKS, AND MIMICKS STAFF. THREATENS THIS RN, STATING "I CAN RIP THIS BED APART IN MINUTES AND USE IT AGAINST YOU." DE-ESCALATED PT AT THAT TIME. WILL ADMINISTERED 400 MG PO BEDTIME SEROQUEL WHICH WILL HOPEFULLY PROVIDE THERAPEUTIC EFFECT. IF NOT, PT WILL ADMINISTERED IM HALDOL/ATIVAN/BENADRYL. WILL CONT TO MONITOR.
--- NOTE | 2018-12-16 23:19 | NUR ---
PT HAS BEEN SLEEPING SINCE AMINISTRATION OF PO BEDTIME SEROQUEL ONLY THUS FAR. WOKE UP FOR A FEW MINUTES, CURSED AND CALLED OUT, THEN FELL BACK ASLEEP.
--- NOTE | 2018-12-17 06:21 | NUR ---
SHIFT SUMMARY: PT REPSONDED WELL TO PO SEROQUEL TONIGHT. ONLY SLEPT A FEW HRS, HOWEVER, BEHAVIOR WAS NOT TO BIZARRE AND UNMANAGABLE. PT IS STILL CALLING OUT PROFANITY AND NONSENSICAL SPEECH, HOWEVER, ONLY A FEW MINUTES/HR. PT IS ALERT TO SELF ONLY. COMPLETELY SOAKS BED AND FLOOR AGAIN TONIGHT AND THEN LAUGHS AT STAFF DURING CLEAN UP AND PERSONAL CARE. HOWEVER, PT IS LESS DEMANDING AND DISRUPTIVE TO OTHER PATIENTS TONIGHT. DID NOT ADMINISTER IM HALDOL/ATIVAN/BENADRYL THIS SHIFT. NO OTHER CHANGES TO REPORT. WILL CONT TO MONITOR AND PROVIDE CARE UNTIL PRESUMED BY ONCOMING RN.
--- NOTE | 2018-12-17 19:33 | NUR ---
SHIFT SUMMARY PT AXO TO SELF THOUGH AGGITATED AND AGGRESSIVE AT TIMES. PT AGREED TO WEAR ATTENDS X2 THIS SHIFT BUT THEN REMOVES THEM AND HIS BED LINENS INDEPENDENTLY AFTER NURSE LEAVES ROOM. IV REMOVED THIS SHIFT, NOT PATENT, REFUSED RESTART AT THAT TIME. . BED IN LOW POSITION, CALL LIGHT WITHIN REACH, BED ALARM ON. PT REFUSED OOB THIS SHIFT.
--- NOTE | 2018-12-18 07:44 | NUR ---
SHIFT SUMMARY PT REFUSED TO WEAR BRIEF AND PULLS OFF BED SHEETS. WAS INCONT OF XLARGE BM IN BED. CLEANED UP AND BRIEF PUT BACK ON WITH DRAWSHEETS ON BED BUT HE PULLED THEM OFF. HE WAS ABLE TO DOZE ON AND OFF T/O BUT WOULD OCCASIONALLY YELL OUT. BED ALARM IN USE.
--- NOTE | 2018-12-18 08:16 | NUR ---
VIDEO MONITORING VERIFIED @ 0814 HRS ON 12/18/18
--- NOTE | 2018-12-18 19:08 | NUR ---
SHIFT SUMMARY 68 YR OLD MALE. DNR. PT REFUSES TO WEAR CLOTHES, ATTENDS, OR HAVE BED COVERS/BLANKETS. PT THROWS OBJECTS WHEN AGITATED. PT CURSES AT STAFF AND REFUSES CARE. HE PULLED OUT HIS IV. HE IS ON VIDEO MONITORING. HX:BIPOLAR, SCHIZOPHRENIA, PTSD, ACHF. ULCER PRESENT ON COCCYX. 1300 ML FLUID RESTRICTION.
--- NOTE | 2018-12-19 06:05 | NUR ---
SHIFT SUMMARY PT NAKED IN BED AND PULLED OFF ALL BED SHEETS. REFUSED TO WEAR BRIEFS AND URINATES IN BED, URINE POOLS IN BED AND GOES ONTO FLOOR. TOOK ALL HIS MEDS Trish GOMEZ. NYSTATIN CREAM APPLIED TO LEGS. HE CALLS OUT YELLING PROFANITIES WANTING LIQUIDS AFTER HE HAS GONE OVER HIS FLUID RESTRICTION. SAYS HE IS NOT ON A FLUID RESTRICTION ANYMORE. HE DOZED A LITTLE BIT ON AND OFF THROUGH NIGHT BUT MOSTLY AWAKE. BED ALARM IN USE.
--- NOTE | 2018-12-19 10:38 | NUR ---
VERIFIED VIDEO MONITORING VERIFIED THAT PEG BENNETT IS MONITORING THE PT VIA VIDEO SURVEILLANCE
--- NOTE | 2018-12-19 17:05 | NUR ---
PT REFUSING TREATMENT.CURSING. SCREAMING AND THREATENING ME. PT THRETEND TO "KICK MY ASS". PT REFUSED DINNER. PT THROWING ITEMS
--- NOTE | 2018-12-19 18:42 | NUR ---
SHIFT SUMMARY 68 YR OLD MALE. ADMITTED FOR HYPONATREMIA (RESOLVED NOW). DNR. PLAN IS FOR PLACEMENT IN INPATIENT PSYCH FACILITY. 1300 ML FLUID RESTRICTION. MEDS GIVEN WHOLE WITH SHERBET. PT MONITORED BY VIDEO SURVEILLANCE. PT HAS PRESSURE ULCER ON COCCYX. PT ON ROOM AIR. REFUSES TO WEAR BRIEFS, CLOTHING. HX: BIPOLAR, SCHIZOPHRENIA, PTSD, ACHF (DIASTOLIC), PICKWICKIAN SYNDROME. PT IS VERBALLY ABUSIVE TO STAFF AND THROWS ITEMS WITHIN REACH ACROSS THE ROOM. PT GRABS ACCESSIBLE CORDS THAT ARE WITHIN REACH.
--- NOTE | 2018-12-20 05:58 | NUR ---
pt did not let me get vitals on him, only tried barganing with me about what there was to drink, in an absolute disrespectful way, using profanity and making vulger comments.
--- NOTE | 2018-12-20 06:34 | NUR ---
SHIFT SUMMARY PT CAN BE VERY DEMANDING RUDE AND USE CURSE WORDS. HE IS NOT HAPPY WITH HIS FLUID RESTRICTION AND IS NOT HAPPY ABOUT THE FOOD HERE AND SAYS HE IS NOT GETTING ENOUGH. CONTINUES TO BE NAKED AND NOT KEEPING THE BED SHEETS ON HIS BED SO THE MATTRESS IS BARE. HE DID DOZE ON AND OFF A LITTLE BIT T/O THE NIGHT, BUT CONTINUES TO SAY HE DOESN'T SLEEP AT ALL. THREW HIS GARBAGE CAN ACROSS THE ROOM.
--- NOTE | 2018-12-20 07:09 | NUR ---
pt refusing to allow this rn and rebecca Elena to clean him up, pt has voided without attends on and had bm. pt stating, "I dont need your help, I will clean my self up." pt refusing to allow us to take vitals this am. will attempt again.
--- NOTE | 2018-12-20 15:56 | NUR ---
pt throwing garbage can in room and yelling and being verbally abusive towards staff. notified primary rn
--- NOTE | 2018-12-20 16:03 | NUR ---
PATIENT YELLING AND CUSING AT STAFF, TOOK GARBAGE CAN AND THREW IT BREAKING IT. SECURITY CALLED, ATIVAN, BENADRYL AND LORAZEPAM GIVEN TO CONTROL AGITATION.
--- NOTE | 2018-12-20 18:06 | NUR ---
PATIENT CONITNUES TO BE UNCOOPERATIVE WITH CARE. REFUSES LINENS, GOWN, AND ATTENDS. STOOLS AND URINATES IN BED AND REFUSES TO LET US HELP HIM CLEAN UP. PATIENT CONITNUES TO GET VERY AGITATED AND DEMANDING. INSISTS THAT WE ARE NOT FEEDING HIM DESPITE HIM HAVING 3 MEALS AND SEVERAL SNACKS THIS SHIFT. 2 PRESSURE SORES TO COCCYX AND PATIENT REFUSING TO HAVE A DRESSING PLACED OVER THEM FOR PROTECTION. NYSTATIN CREAM APPILED TO YEAST RASH TO LEGS/GROIN. AWAITING INPATIENT PSYCH UNTIL.
--- NOTE | 2018-12-21 05:26 | NUR ---
SHIFT SUMMARY PT SLEPT OFF AND ON DURING THE NIGHT, AGITATED WITH STAFF THIS AM BECAUSE HE WANTS MORE FLUIDS. PT HAS REACHED LIMIT OF FLUIDS IN HIS 24 HOURS, UNABLE TO REDIRECT PT. PT CUSSING AT STAFF. NO ACUTE CHANGES NOTED, WILL CONTINUE TO MONITOR.
--- NOTE | 2018-12-21 08:45 | NUR ---
BEGINING OF SHIFT: UPON ENTERING ROOM, PT WAS IN BED WITHOUT CLOTHING OR SHEETS. WHEN ATTEMPTING TO PUT LINENS OF PT'S BED, HE STARTED TO YELL " GET THE FUCK OUT" HE PULLED THE SHEET AWAY AND THREW IT ON THE GROUND. PT WAS CLENCHING HIS FIST AND WAS NOT FOLLOWING DIRECTIONS. WILL LET THE SITUATION SETTLE BEFORE ATTEMPTING CARE AGAIN.
--- NOTE | 2018-12-21 10:48 | NUR ---
PATIENT REFUSING CARE PATIENT PLEASANT WITH THIS RN BUT REFUSING CARE FROM SENIOR BUSINESS ARCHITECT. PATIENT REFUSES TO PARTICIPATE IN SKIN ASSESSMENT OR TO HAVE PRESSURE ULCERS ON BUTTOCKS DRESSED.
--- NOTE | 2018-12-21 19:31 | NUR ---
SHIFT SUMMARY NO ACUTE CHANGES. PATIENT MOSTLY COOPERATIVE WITH CARE THIS SHIFT. PATIENT IS RESISTANT OF HIS FLUID RESTRICTION. PATIENT CAN BE ABUSIVE AND CURSE AT STAFF AT TIMES. PATIENT REFUSES URINAL OR ATTENDS AND VOIDS ON BED/FLOOR. REPORT GIVEN TO NOC RN. DENIES PAIN, NAUSEA, OR SHORTNESS OF BREATH. REPORT GIVEN TO NOC RN.
--- NOTE | 2018-12-22 05:42 | NUR ---
SHIFT SUMMARY PT AWAKE MOST OF THE NIGHT AGAIN. TORE BEDDING FROM BED AND ALSO RIPPED BRIEF OFF. AT ONE POINT PT DEMANDING TO GET INTO W/C AND WANTING HELP FROM SECURITY. PT BEING RUDE WITH STAFF AND YELLING. PT REDIRECTED AND TOLD HE DIDN'T NEED TO BE RUDE. PT LATER APOLOGIZED TO STAFF AND CHOSE TO LIE BACK DOWN IN BED. PT GIVEN SOME TYLENOL FOR LEG PAIN. NO ACUTE CHANGES OR EVENTS NOTED DURING THE NIGHT. WILL CONTINUE TO MONITOR.
--- NOTE | 2018-12-22 12:02 | NUR ---
PT BEHAVIOR/REFUSAL PT CURSING AT STAFF REGULARLY WHEN FRUSTRATED. PT REFUSED EDUCATION ON FLUID RESTRICTION & DEMANDED TO HAVE MORE FLUID EVEN THOUGH FLUID RESTRICTION IS MET. PT STATED THAT HE "HAS BEEN AROUND FOR A LONG TIME" & KNOWS WHAT HE IS DOING. PT DEMANDED THAT THIS RN LEAVE HIS ROOM. PT REFUSING TO SIT UPRIGHT FOR LUNCH. WILL CONTINUE TO MONITOR & ENCOURAGE PT TO FOLLOW DR. RAMÍREZ.
--- NOTE | 2018-12-22 17:28 | NUR ---
SHIFT SUMMARY NO CHANGES IN ASSESSMENT AT THIS TIME. VSS. PT EASILY AGITATED. PT CONTINUES TO REFUSE TO FOLLOW FLUID RESTRICTION. PT REFUSES WEARING CLOTHING, BREIFS, AND HAVING LINEN ON THE BED. WILL CONTINUE TO MONITOR UNTIL TURNOVER IS COMPLETE.
--- NOTE | 2018-12-23 07:32 | NUR ---
NOC SHIFT SUMMARY PT VERY RUDE AND VERBALY ABUSIVE. ATTEMPTED TO HIT OUTSOLE LEVELER EARLY IN THE NIGHT. WOULD NOT ALLOW ASSESMENT. MEDICATED PER EMAR TO GOOD EFFECT AND WAS THEN ABLE TO BE CARED FOR THIS NIGHT. EVEN WITH MEDICATION PT WOULD NOT STAY CLOTHED DURING THE NIGHT CONTINIOUSLY REMOVED CLOTHES AND ADULT DIAPER. INCONTINENT OF BOWEL AND BLADDER. VSS. CURRENTLY APPEARS IN NO ACUTE DISTRESS. REPORT TO ONCOMING RN.
--- NOTE | 2018-12-23 10:21 | NUR ---
PT CONTINUES TO SLEEP SINCE BEGINING OF SHIFT. WILL GIVE MEDS LATE BECAUSE OF THIS. NO S/SX OF DISTRESS OR DISCOMFORT. WCTM.
--- NOTE | 2018-12-23 19:10 | NUR ---
SHIFT SUMMARY. A&OX1, PT WAS ACTUALLY PLEASANT MOST OF THE DAY. PT REFUSED BRIEF, HAD INCONTINENT URINE IN BED, HAD ONE INCONTINENT STOOL IN BED, TOOK FITTED SHEET OFF AND PUT IT ON THE FLOOR. PT ALLOWED INCONTINENCE CARE. PT DENIES PAIN, SOB, N/V. AWAITING PLACEMENT. NO NEW CHANGES.
[2018-12-24 05:08] LABS: Hematocrit 39.9 % (37.0-53.0); Hemoglobin 12.8 g/dL (13.5-17.5)
[2018-12-24 05:44] LABS: Magnesium, Blood 2.1 mg/dL (1.6-2.4)
[2018-12-24 05:46] LABS: Albumin, Blood 3.1 g/dL (3.4-5.0); Anion Gap 7 mmol/L (6-16); Blood Urea Nitrogen 16 mg/dL (8-24); Bun/Creatinine Ratio 24.9 (12.0-20.0); CO2, Blood 25 mmol/L (21-32); Calcium, Blood 9.3 mg/dL (8.5-10.1); Chloride, Blood 104 mmol/L (98-108); Creatinine, Blood 0.64 mg/dL (0.60-1.20); Glomerular Filtration Rate >60 (60-); Glucose, Blood 96 mg/dL (70-99); Phosphorus, Blood 3.9 mg/dL (2.5-4.9); Sodium, Blood 136 mmol/L (136-145)
--- NOTE | 2018-12-24 07:18 | NUR ---
NOC SHIFT SUMMARY PT HAS BEEN MORE AGREABLE THIS NIGHT. TOOK EVENING MEDS AND SLEPT ABOUT HALF THE NIGHT. HE AGREED TO HAVE BLOOD DRAWN THIS MORNING. PT IS MUCH EASIER TO PROVIDE CARE FOR THOUGH HE DOES REQUIRE SOME CONVINCING AT TIMES. CONTINUES TO BE INCONTINENT OF URINE AND VOIDED IN HIS BED AND ON THE FLOOR. REFUSED TO BE CLOTHED, TO WEAR AN ATTENDS, OR BE COVERED BY A SHEET. VSS. APPEARS IN NO ACUTE DISTRESS. REPORT TO ONCOMING RN.
--- NOTE | 2018-12-24 07:35 | NUR ---
PATIENT WOULD NOT LET ME GET HIS VITAL SIGNS THIS MORNING AT SHIFT CHANGE. PATIENT TOLD ME TO TAKE THE VITAL SIGN MACHINE AND SHOVE IT AND NOT COME BACK. PATIENT REFUSED VIATL SIGNS THIS MORNING.
--- NOTE | 2018-12-24 18:02 | NUR ---
SHIFT SUMMARY. A&OX2, SOMEWHAT PLEASANT DURING SHIFT. PT CONTINUES TO REFUSE BRIEF OR USE OF URINAL, CONTINUES TO URINATE AND HAVE BM'S IN BED, REMOVES BEDDING. CONTINUES TO REQUEST MORE FLUID THAN IS ALLOWED WITH FLUID RESTRICTION, PT EDUCATED, ALTHOUGH PT DOES NOT SEEM TO UNDERSTAND THE IMPORTANCE OF FR. CN SPOKE WITH CM AND IT WAS REPORTED THAT [facility] RECOR[facility] FOR POSSIBLE PLACEMENT. NO OTHER CHANGES.
--- NOTE | 2018-12-25 05:50 | NUR ---
Rn summary: Patient was upset at the beginning of shift and he was incontinent of stool in his bed. He states he will poop again if I don't get him something to drink. Pt given some diet pepsi and he has been mostly cooperative the rest of the shift. Pt refuses sheets on bed and has no clothes on. Sometimes he wants a towel over his lap. Pt has rested this shift for 2-3 hours. Pt continues to have open areas on bilateral buttocks cheeks, but they are healing when compared with pictures. Barrier cream was applied. Pt does not follow fluid restriction well. Has had 600cc po on this shift. Continue care and monitoring.
--- NOTE | 2018-12-25 07:40 | NUR ---
PATIENT REFUSED TO HAVE VITAL SIGNS TAKEN THIS MORNING. PATIENT WAS VERBALLY AGRRESIVE TO ME THIS MORNING AND TOLD ME TO GET OUT OF HIS ROOM AND TAKE TO NOT COME BACK UNTIL I HAVE MY IN ORDER AND TO TAKE THE VITAL SIGN MACHINE AND SHOVE IT UP MY . RN WAS NOTIFIED.
--- NOTE | 2018-12-25 18:14 | NUR ---
Shift summary: Patient has been awake throughout the shift. Pt is A&Ox3. Pt has been compliant at times while refusing care from staff at others. Pt had one instance of incontenence of bowel in bed this afternoon. Pt showered and choose to sit in his wheelchair in the hallway. Pt then returned to his room when a visitor came. Pt returned to bed, refusing sheets on the bed or to wear a brief. Pt requested to have all 4 rails in the up position. Pt currently in bed watching TV, calm and cooperative. Will continue to monitor.
--- NOTE | 2018-12-26 05:35 | NUR ---
Rn summary: Patient is alert but inappropriate in his answers and behaviors. Pt was incontinent at about 2100 of lg loose stool. Pt had bed, rails, call light, floor covered with stool. Pt was laughing in a manic manner. Pt did allow us to clean him up, but is demanding about how we can clean and when. Pt has requests for drinks and snacks which he has received. Pt was found sitting at bedside talking at length staring at a chair to someone we could not see. Pt also this am urinated all over the floor. Pt did rest for about 2 hours from midnight to 0200. Pt is physically stable but continues with his mental illness. Call light in in reach. Pt sometimes wears a gown and sometimes is naked.
--- NOTE | 2018-12-26 15:22 | NUR ---
PATIENT REFUSED AFTERNOON VITAL SIGNS. PATIENT STATED WHAT ARE YOU GOING TO GIVE ME FOR THE VITALS SIGNS. I ASKED WHAT THAT MEANT HE STATED HE WANTED FOOD. PATIENT WAS EATING CHOCOLATE PUDDING AT THIS TIME. I LET PATIENT KNOW THAT WHEN I WAS DONE THAT I WOULD GET HIM SOMETHING AND HE DECLINED STATING HE WANTED SOMTHING FIRST AND TOLD ME TO LEAVE. RN WAS NOTIFIED.
--- NOTE | 2018-12-26 17:23 | NUR ---
Shift summary Pt has been resting in bed throughout the shift. Pt A&Ox3. Pt refuses attends or sheets on the bed. Pt uses blankets when he urinates, refusing to use urinal, toilet, or attends. Pt has had one incident of urinating on the bed this shift. Pt refuses most care unless using it for a barganing tool for food and drinks. Pts speech is difficult to understand at times and shifts topics often when speaking. Pt medicated for leg pain 2x this shift. Pt currently resting in bed, will continue to minitor.
--- NOTE | 2018-12-27 04:35 | NUR ---
Rn summary: Patient has been stable this shift. Pt continues to eat large amounts of food. He did have 1 episode of loose stool this shift. He was irritable at the beginning of the shift but has been saying thank you to cares given. No major psych issues noted tonight. 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 He also talks a lot about the war in [place]. He has slept more than usual this shift. Uses call light appropriately.
--- NOTE | 2018-12-27 11:43 | NUR ---
PT IS ALERT AND ORIENTED. HE IS DEMANDING WITH HIS CARE. HE IS INCONTINENT OF BOWEL AND BLADDER. HE CALLS APPROPRIATELY. WILL CONTINUE TO MONITOR
--- NOTE | 2018-12-27 18:20 | NUR ---
PT IS ALERT AND ORIENTED. HE CAN BE UNCOOPERATIVE WITH CARE AT TIMES. HE EATS ALL THE TIME, CONSTANTLY ASKING FOR MORE FOOD. THE PT IS AWARE WHEN HE HAS TO USE HAVE A BOWEL MOVEMENT OR VOID BUT CHOOSES NOT TO USE THE BEDPAN OR URINAL. WILL CONTINUE TO MONITOR.
--- NOTE | 2018-12-27 21:55 | NUR ---
VSS, AFEBRILE, A/O, PT HAS URINATED ALL OVER HIMSELF AND HIS BED. THEN HE STRIPPED HIMSELF AND HIS BED, THROWING THE WET MATERIALS ONTO THE FLOOR. THEN HE THREW EVERYTHING THAT HE COULD REACH FROM HIS BED ONTO THE PILE OF WET MATERIALS. THERE IS A MODERATE SIZE PILE OF GARBAGE AND URINE SOAKED MATERIAL BLOCKING THE DOOR TO HIS ROOM. PT WAS GIVEN TWO CUPS OF ORANGE SHERBERT A BRIBE TO GET HIM TO TAKE HIS EVENING MEDICATION. AFTER THAT, HE REQUESTED A "SUPER LARGE ICE MILK AND ICE CREAM". PT IS ON A FLUID RESTRICTION, AND THIS WAS EXPLAINED TO HIM (AGAIN). PT THEN THREATENED TO "SHIT ALL OVER THIS ROOM UNLESS YOU BRING ME ICE MILK AND ICE CREAM". PT ALSO THREATENED TO CONTACT HIS LEGAL GUARDIAN, INFORMED STAFF THAT HE "KNOWS" THAT HIS BLOOD SUGAR IS DROPPING - EVEN W/OUT A GLUCOMETER, AND WHEN ANOTHER PT WAS OVERHEARD, HE STATED THAT HE WANTS TO "PAY A VISIT TO THAT LADY DOWN THE [place]VA THAT KEEPS CALLING" OUT, DEFINING HIS INTENTION TO "SHUT THAT BROAD UP". PT HAS BEEN MEDICATED FOR AGITATION PER ORDER. WILL CONTINUE TO MONITOR.
--- NOTE | 2018-12-28 06:04 | NUR ---
VSS, AFEBRILE, PT IS ANGRY, INSULTING HIS CARE GIVERS, MAKING SNIDE AND NASTY REMARKS, AND COMPLAINING THAT HE HASN'T BEEN GIVEN HIS BREAKFAST ALREADY. ANY ATTEMPTS TO REORIENT HIM TO TIME/PLACE IS MET WITH MORE INSULTS AND INTERRUPTIONS. PT'S BEHAVIOR IS DISRUPTIVE/ABUSIVE/DISRESPECTFUL TO HIS CAREGIVERS. PT IS REFUSING CARES AND DEMANDING TO SPEAK TO THE CHARGE NURSE. WILL REPORT TO ON-COMING SHIFT.
--- NOTE | 2018-12-28 18:36 | NUR ---
PT AO WITH A LOT OF AGITATION AND BEHAVIORS. PT CAN BE PLEASANT ONE MOMENT AND THEN DEMANDING AND UNHAPPY ANOTHER. PT DOES NOT CALL APPRORIATELY AND SOILS THE BED AND RUBS AROUND IN HIS STOOL. PT CONTINUE TO BE UNHAPPY WITH ALL CARE. WILL CONTINUE TO MONITOR.
--- NOTE | 2018-12-28 23:48 | NUR ---
stated his pain was 10 out of 10 asked for tylenol, after the tylenol he said the pain remaind a 10, able to move foot without grimice, flinch or other s/sx of pain, stated it stays at a 10 most of the time, got him ice cream
--- NOTE | 2018-12-29 07:36 | NUR ---
room air no IV, incontinent of bowel and urine, took med with marta, willing to do vitals for soda, up in wc with max assist
--- NOTE | 2018-12-29 10:37 | NUR ---
PT SLEEPING; RR EVEN AND UNLABORED.
--- NOTE | 2018-12-29 11:38 | NUR ---
PT SLEEPING. RR EVEN AND UNLABORED. APPEARS IN NO ACUTE DISTRESS. A.M. MEDS NOT GIVEN. PT REFUSING STATES "I'M NOT DOING THAT".
--- NOTE | 2018-12-29 18:41 | NUR ---
SHIFT SUMMARY REFUSES TO WEAR GOWN AND TAKES LINENS OFF BED; THROWS ALL FOOD ITEMS ON FLOOR. CALM TODAY. URINATING AND DEFICATING ON SELF. NO OTHER CHANGES.
--- NOTE | 2018-12-30 04:34 | NUR ---
SHIFT SUMMARY PT ORIGINALLY ADMITTED FOR HYPONATREMIA. DNR. 2 GRAM LOW SODIUM CARDIAC SOFT BITE SIZED DIET WITH PLASTICWARE ONLY AND FOOD IN PAPER. NO IV ACCESS NEEDED. LOVENOX FOR DVT PROPHYLAXIS. 2 PERSON MAX ASSIST WITH TRANSFER IF PT GETS OUT OF BED. PT DID NOT GET OUT OF BED SO FAR THIS SHIFT. TAKES MEDICATIONS WHOLE WITH WATER. THE PT CONTINUES TO REFUSE TO WEAR CLOTHING OR KEEP BEDDING ON BED. THE PT CONTINUE TO DEFICATE AND PLAY IN IT AND URINATE ON THE FLOOR AND/OR BED. PT IS CURRENTLY AWAITING IN-PT [facility]EMENT. PT ASKS TO SPEAK WITH CHARGE NURSE OFTEN AND THREATENS TO DEFECATE ON STAFF WHEN PT IS ANGRY ABOUT CARE NECESSITY. PT APPEARS TO BE SLEEPING COMFORTABLY AT THIS TIME WITH NO APPARENT SIGNS OF ACUTE DISTRESS. FREQUENT VISUAL CHECKS DUE TO PT DOES NOT USE CALL LIGHT APPROPRIATELY. BED ALARM FOR SAFETY. WILL CONTINUE TO MONITOR.
--- NOTE | 2018-12-30 09:43 | NUR ---
PT URINATED ALL OVER FLOOR. PT WAS CONTINENT, BUT REFUSED TO USE URINAL. PT IS AWARE OF HOW TO USE CALL SYSTEM, BUT CONTINUES TO REFUSE TO USE CALL LIGHT.
--- NOTE | 2018-12-30 16:33 | NUR ---
HE IS EATING A SNACK AND JUST RECEIVED TYLENOL FOR PAIN IN HIS LOWER LEG. HE HAS SWORN A LITTLE TODAY BUT WHEN WE WALK OUT OF THE ROOM THAT IS THE END OF IT. HE HAS BEEN PRETTY CONTENT. HE DOES NOT LIKE HIS FLUID RESTRICTION. REFUSES TO WEAR A GOWN, PANTS OR TEDS. REFUSES CONTINUOUS BIOX. NO LABSTODAY.
--- NOTE | 2018-12-30 22:47 | NUR ---
PT RESTING COMFORTABLY IN BED AT THIS TIME.
--- NOTE | 2018-12-31 04:36 | NUR ---
68 Y/O MALE SLEPT COMFORTABLY ALL EVENING WITH OCCASIONAL REQUESTS ASSISTANCE ADSL. PT DENIES PAIN OR NAUSEA. PTS HAS DISORGANIZED THOUGHT PROCESS AT TIMES. PTS BED LOW POSITION, CALL LIGYHT AT SIDE.
--- NOTE | 2018-12-31 06:41 | NUR ---
PT NOTED TO NOT WEAR ANY CLOTHES ALL NIGHT LONG AND LAYED ON DRAW SHEET WHICH WAS CHANGED X 3 FOR INCONTINENCE.
--- NOTE | 2018-12-31 13:23 | NUR ---
HIS FLUID RESTRICTION HAS BEEN LIFTED. HE JUST THREW HIS PAPER DISHES ON THE FLOOR AND PULLED A CORD OUT OF THE WALL BECAUSE HE SAYS HIS GUARDIAN HASN'T COME TO SEE HIM AND HE DOESN'T GET ENOUGH TO EAT AND DRINK. I TOLD HIM ABOUT THE FLUID RESTRICTION BEING LIFTED. HE AGREES TO BEHAVE BETTER. HE AGREED TO KEEP A COVER OVER HIS NAKED BODY SO THAT WE COULD LEAVE THE CURTAIN OPEN TO ALLOW HIM TO SEE OUT IN THE SILVA.
--- NOTE | 2018-12-31 18:31 | NUR ---
HE EATS 100 PLUS PERCENT. NO BM TODAY. INCONTINENT OF URINE INTO BLANKETS THEN THROWS THEM ASIDE. FLUID RESTRICTION DC'D BY TODAY. VSS. NO OTHER CHANGES.
--- NOTE | 2019-01-01 04:37 | NUR ---
SHIFT SUMMARY PATIENT HAD NO ACUTE CHANGES OBSERVED THIS SHIFT. AXO X3 W/GARBLED SPEECH AT TIMES. NO IV ACCESS. REFUSED FIRST SET OF VITALS. REFUSES SHEETS ON BED AND TO WEAR GOWN. PATIENT INCONTINENT OF BOWL AND BLADDER ON SHEETS. REPORTED LEG PAIN AND LIQUID TYLENOL GIVEN PER EMAR. DENIES SOB AND N/V. UP FIRST HALF OF SHIFT AND SLEPT ON/OFF THE REST. DOES NOT USE CALL LIGHT. BED ALARM ACTIVATED. CALL LIGHT IN REACH. WILL CONTINUE TO MONITOR UNTIL DAY SHIFT NURSE ASSUMES CARE.
--- NOTE | 2019-01-01 18:23 | NUR ---
NO ACUTE CHANGES THIS SHIFT. NO OUTBURSTS OR AGGRESSION TOWARDS STAFF. CALL LIGHT WITHIN REACH.
--- NOTE | 2019-01-02 04:04 | NUR ---
SHIFT SUMMARY PATIENT HAD NO ACUTE CHANGES OBSERVED THIS SHIFT. AXOX 3 AND BEDFAST, W/C BOUND. NO IV ACCESS. TAKES MEDICATION WHOLE WITH WATER AND SHERBERT ICE CREAM. REPORTS LEG PAIN X ONE AND RECEIVED LIQUID TYLENOL PER EMAR. VSS/AFEBRILE. DENIES SOB AND N/V. PATIENT CONTINUE TO REFUSE SHEETS ON HIS BED AND WEARING A GOWN. PATIENT CONTINUES TO VOID ON BED REFUSING TO USE A URINAL. AUDITORY HALLUCINATION EARLY IN SHIFT. DOES NOT USE A CALL LIGHT SHOUTING OUT INTO SILVA. BED IN LOWEST POSITION. WILL CONTINUE TO MONITOR UNTIL DAY SHIFT NURSE ASSUMES CARE.
--- NOTE | 2019-01-02 11:27 | NUR ---
THIS NURSE HEARD EMPTY FOOD CONTAINERS LANDING ON THE FLOOR COMING FROM ROOM 352. THIS NURSE WENT DOWN TO SEE WHAT WAS HAPPENING AND FOUND THE PATIENT THROWING ALL THIS BREAKFAST CONTAINERS ONTO THE FLOOR AND TOWARDS THE DOOR. WHEN ASKED WHY HE WAS DOING THIS HE STATED THAT HE HAD BEEN YELLING FOR OVER AN HOUR FOR SOMEONE TO COME AND BRING HIM WATER. WHEN THIS NURSE STATED SHE HAD BEEN WORKING ON THE COMPUTER AND DID NOT HEAR ANY YELLING HE BECAME EVEN MORE BELIGERANT AND STATED HE WAS PAYING TAXES FOR THIS CARE. THIS NURSE ASKED WHY HE DID NOT USE HIS CALL LIGHT TO [facility] AND HE STATED HE DID NOT WANT TO USE IT AND CONTINUED TO DEMAND THAT NURSE CLEAN UP . THIS NURSE PICKED UP THE CONTENTS THAT HAD LANDED OUTSIDE OF THE ROOM, GATHERED THE LEFT OVER THINGS THAT WERE STILL ON THE TRAY, AND THE TRAY AND LEFT THE ROOM TELLING THE PATIENT THAT WHEN HE COULD CONTROL HIS BEHAVIOR SHE WOULD RETURN. LUNCH WAS DELIVERED AND WHEN PATIENT WAS ASKED TO NOT THROW HIS FOOD HE RESPONDED WITH "IM WHITE, FREE, AND A RACIST." TRAY WAS LEFT AND WE WILL SEE WHAT BECOMES OF IT. NURSE WILL RETURN WHEN PATIENT IS EITHER CALM OR ASLEEP AND CLEAN UP THE REST OF THE MESS HE MADE. PATIENT HAS BEEN GRANTED EVERY REQUEST HE HAS HAD FROM [facility] TO [facility] FOR HIS MEDS. HIS NEEDS ARE MET, HE IS SAFE, AND CALL LIGHT IS WITHIN HIS REACH. HE CONTINUES TO SWEAR AT AND ATTEMPT TO DEMEAN STAFF.
--- NOTE | 2019-01-02 16:02 | NUR ---
NURSE WENT BACK IN TO ROOM TO FINISH CLEANING UP AND FOUND PATIENT HAD THROWN HIS LUNCH CONTAINERS ALL OVER THE FLOOR AND URINATED ON THE SIDE OF THE BED. NURSE PICKED UP GARBAGE AND MOPPED UP URINE ON FLOOR NEXT TO BED. URNIAL WAS OFFERED TO PATIENT AND INSTRUCTED TO PLEASE USE IT. THIS NURSE WAS AGAIN TOLD BY PATIENT THAT IT WAS HER JOB TO CLEAN UP HIS MESS. THIS NURSE INFORMED PATIENT THAT IT WAS HIS JOB TO USE THE URNIAL . URINAL WAS PLACED ON SIDE OF BED AND NURSE WAS WALKING OUT PATIENT THREW IT AT HER WHICH ENDED UP HITTING THE DOOR IT CLOSED BEHIND NURSE.
--- NOTE | 2019-01-02 18:02 | NUR ---
1800 NURSE WENT INTO CHECK ON PATIENT AND FOUND A ANDRADE OF URINE THROUGHOUT THE WHOLE ROOM. HOUSEKEEPING WAS CALLED AND THIS NURSE AND THE HOUSEKEEPERS MOPPED UP THE ROOM. THIS NURSE AGAIN INSTRUCTED PATIENT THAT HE NEEDED TO USE HIS URINAL AND THAT URINATING ON THE FLOOR WAS NOT ACCEPTABLE . HE STATED HE IS PARALYZED HE WAS FLINGING HIS HANDS AROUND. THIS NURSE REMINDED HIM THAT HIS ARMS AND HANDS WORK JUST FINE AND THAT HE WAS ABLE TO HOLD A URNIAL. PATIENT CONTINUED TO LAUGH AND STATED HE WOULDNT USE THE URINAL AND THAT HE COULDNT HOLD ONE AND DIDNT KNOW WHEN HE WAS URINATING. THE URINE WAS ON ALL THREE SIDES OF THE BED AND HAD REACHED THE WALL AND THE BATHROOM DOOR. PATIENT FEEDS HIMSELF AND HAS NO PROBLEM HOLDING ANYTHING WHEN HE DESIRES IT. NO ACUTE CHANGES TO PATIENT THIS SHIFT. CALL LIGHT HAS BEEN PLACED WITHIN REACH BUT PT HAS TOSSED IT ONCE AGIAN OFF THE BED. URINAL HAS BEEN PLACED ON BEDSIDE STAND AND ON SIDE OF BED WITH IT BEING THROWN AT THE NURSE OR THROWN ACROST THE ROOM. PT ABLE TO REACH HIS PENIS HE HAS BEEN WITNESSED SELF STIMULATING MULTIPLE TIMES.
--- NOTE | 2019-01-02 21:41 | NUR ---
PATIENT NONCOMPLIANT WITH CARE. VOIDING AND DEFECATING IN BED W/O SHEET. PATIENT THROWING FECES ON FLOOR. THROWS CUPS WITH FECES IN THEM ON FLOOR. BED CHANGE AND PATIENT CLEANED UP. PATIENT REQUESTED WARM BLANKETS. DOES NOT USE CALL LIGHT. WILL CONTINUE TO MONITOR.
--- NOTE | 2019-01-02 21:44 | NUR ---
PATIENT REFUSED VITALS
--- NOTE | 2019-01-02 22:49 | NUR ---
PATIENT DEFECATED ON WARM BLANKETS AND THREW ON FLOOR. PATIENT HAS THROW ALL BLANKETS ON FLOOR.
--- NOTE | 2019-01-03 03:44 | NUR ---
SHIFT SUMMARY PATIENT AXO X 3 W/C BOUND BEDFAST. PATIENT REFUSING VITALS AND TO USE URINAL. HE REFUSES TO WEAR GOWN, ATTENDS, AND TO HAVE A SHEET ON HIS BED. PATIENT DEFECATED IN BED AND THROWS FECES ON FLOOR AND PUTS IN STYRO CUPS AND THROW ON FLOOR. PATIENT ALSO SOILS BLANKETS AND THROWS ON FLOOR X THREE. REFUSES TO USE CALL LIGHT AND SHOUTS OUT INTO SILVA. MULTIPLE BED AND FLOOR CLEANINGS. UNCOOPERATIVE WITH CARE. TAKES MEDICATION WHOLE WITH SHERBERT ICE CREAM. DENIES PAIN, SOB, AND N/V. BED IN LOWEST POSITION. WILL CONTINUE TO MONITOR UNTIL DAY SHIFT NURSE ASSUMES CARE.
--- NOTE | 2019-01-03 05:42 | NUR ---
PATIENT URINATED ON FLOOR AND FECES ON MATTRESS, FEET, AND FLOOR. PATIENT CLEANED UP AND MAINTENANCE CALLED IN FOR A COMPLETE FLOOR MOP UP.
--- NOTE | 2019-01-03 17:19 | NUR ---
SHIFT SUMMARY PT A&0X2 TO SELF AND PLACE. PT IS IRRITABLE BUT COOPERATIVE WITH CARE DURING SHIFT. PT CONFUSED. PARANOID AT TIMES. PT IN ROOM SPEAKING TO SOMEONE, NO ONE IS THERE. PT RESTING IN BED FOR MAJORITY OF SHIFT, PT UP IN WHEELCHAIR THIS AFTERNOON, LIFT TO WC.PT AGREED TO LINENS AND ATTENDS AND GOWN WHILE UP IN WC. PT REPORTS PAIN IN RIGHT KNEE, MEDICATED X1 WITH TYLENOL. SOB WITH EXERTION, >92% ON RA. PT DENIES N/V DURING SHIFT. AWAITING SAFE DISCHARGE PLAN/PLACEMENT. PT TAKING MEDICATION WITH ICE CREAM. SKIN BREAKDOWN ON COCCYX, PT CONTINUES TO REQUEST MEPILEX, CREAM APPLIED, NEW PHOTO IN CHAIR. VSS. NO OTHER ACUTE CHANGES NOTED DURING SHIFT. WILL CONTINUE TO MONITOR UNTIL REPORT GIVEN TO ONCOMING RN.
--- NOTE | 2019-01-03 22:42 | NUR ---
PT TAKES OFF ATTENDS, RIPS IT TO SHREDS AND THROWS IT, WITH URINE AND FECES, ON THE FLOOR. INSTRUCTED PT OF UNACCEPTABLED BEHAVIOR, BUT PT JUST LAUGHS AND MOCKS STAFF. PT IS REFUSING ATTENDS BUT ALLOWS SHEET.
--- NOTE | 2019-01-04 01:29 | NUR ---
PT SLEEPING AT THIS TIME. NO MAJOR BEHAVIORAL EVENTS TONIGHT AT THIS TIME.
--- NOTE | 2019-01-04 05:21 | NUR ---
SHIFT SUMMARY: NO ACUTE CHANGES TONIGHT. PT IS NOT EXTREMELY INAPPROPRIATE OR RUDE TONIGHT, JUST ONE BEHAVIORAL EPISODE OF RIPPING OFF FECE AND URINE COVERED ATTENDS, SHREDDING IT UP, AND THROWING IT ON THE GROUND. PT REPORTS "IF EVERY NEED AND WANT IS MET" HE WILL BE NICE. PT USED URINAL 3X TONIGHT WHICH HE HAS NOT DONE BEFORE IN THE PAST. STILL REFUSES TO WEAR SHEETS AND REFUSES MEPILEX TO PRESSURE ULCER ON COCCYX. NO OTHER CHANGES TO REPORT. WILL CONT TO MONITOR AND PROVIDE CARE UNTIL PRESUMED BY ONCOMING RN.
--- NOTE | 2019-01-04 06:25 | NUR ---
WALKED INTO ROOM TO FIND ANDRADE OF URINE AND PT AIMING PENIS OUT SIDE OF BED DIRECTLY PEEING ON FLOOR. PT LAUGHS AT RN WHEN ASKING WHY HE DID NOT CONT TO USE URINAL. HOUSEKEEPING CALLED TO MOP FLOOR. PT CLEANED ALLOWS, BUT REFUSES SHEETS AND ATTENDS.
--- NOTE | 2019-01-04 18:14 | NUR ---
SHIFT SUMMARY PT A&OX2, CONFUSED AND SPEECH NONSENSICAL AT TIMES. NO NOTED AUDITORY OR VISUAL HALLUCINATIONS NOTED DURING THIS SHIFT. PT IRRITABLE BUT MORE COOPERAITVE WITH CARE. PT ALLOWING ATTENDS FOR MAJORITY OF SHIFT AND IS USING CHUCKS AND URINAL. PT RESTING IN BED DURING SHIFT. REFUSING TO GET UP IN CHAIR DURING SHIFT. PT REPORTS PAIN IN RIGHT KNEE, MEDICATED WITH x1 WITH TYLENOL. PT DENIES SOB, BREATHING LABORED WHEN FLAT. PT DENIES N/V DURING SHIFT. PENDING PLACEMENT. VSS. NO OTHER ACUTE CHANGED NOTED DURING SHIFT. WILL COTINUE TO MONITOR UNTIL REPORT GIVNE TO ONCOMING RN.
--- NOTE | 2019-01-05 05:15 | NUR ---
SHIFT SUMMARY: PT HAS NOT HAD ANY ACUTE CHANGES TONIGHT. HAS SLEPT WELL THROUGH THE NIGHT, EVEN COMPLIANT WITH USING URINAL A FEW TIMES. HAS REQUIRED A FEW BED CHANGES D/T INCONTINENCE. PT STILL REFUSES TO WEAR ATTENDS BUT WILL SOMETIMES ALLOW SHEETS AND PADS ON BED. NO OTHER CHANGES TO REPORT WILL CONT TO MONITOR AND PROVIDE CARE UNTIL PRESUMED BY ONCOMING RN.
--- NOTE | 2019-01-05 16:51 | NUR ---
SHIFT SUMMARY- PT HAS BEEN COOPERATIVE WITH MUCH OF THE SHIFT. PT REFUSES TO HAVE SHEETS ON UNDER HIM AT TIMES. PT HAS USED THE URINAL INDEP T/O MOST OF THE SHIFT WITH OCC INCONT/ SPILLED VOID. PT REQUESTING FREQUENT SNACK AND DIET SODA. PT WITH NONSENSICAL SPEECH. PT MEDICATED X1 FOR RIGHT KNEE/ RIGHT LEG PAIN. PT AWAITING PLACEMENT. NO OTHER ACUTE CHANGES THIS SHIFT.
--- NOTE | 2019-01-06 05:35 | NUR ---
SHIFT SUMMARY PT WAS AGREEABLE T/O SHIFT. PT DID HAVE LINEN ON BED FOR MOST OF SHIFT. PT EVENTUALLY TOOK OFF LINEN. PT DID NOT HAVE ANY OUTBURSTS NOTED AND DID SLEEP SOME. PT HAD NOACUTE ISSUES NOTED. PT CURRENTLY SLEEPING AND BREATHING EASY. CALL LIGHT IN REACH. BED ALARM ON.
--- NOTE | 2019-01-06 19:05 | NUR ---
SHIFT SUMMARY- PT AXO X2. C/O KNEE PAIN THIS AM. MEDS GIVEN PER EMAR. PT DENIES SOB. RESP E/U AT REST ON RA. DYSPNEA UPON EXERTION. PT REFUSING Q2H TURNS. PT REMOVED BOTH HEEL MEPILEX AND REFUSING MEPILEX ON HIS BOTTOM. NO OTHER SIGNIFICANT CHANGES THIS SHIFT.
--- NOTE | 2019-01-07 04:45 | NUR ---
SHIFT SUMMARY NO CHANGES FOR THE PT. PT HAS BEEN COOPERATIVE FOR MOST OF SHIFT. PT IS CURRENTLY SLEEPING AND BREATHING EASY. BED ALARM ON AND CALL LIGHT IN REACH.
--- NOTE | 2019-01-07 08:00 | NUR ---
PT PLEASANT A/O TO SELF. SITUATION. DENIES PAIN AT THIS TIME. LYING IN BED. REFUSES ATTENDS AND GOWN. H/R REG, NO MURMER NOTED. NO TELE. LUNGS CLEAR, RESP EASY,UNLABORED. ON R.A. BT X4 LAST BM TODAY. VOIDS URINAL. BED IN LOW POSITION,C ALL LITE IN REACH, CALLS OCCATIONALLY APPROP. BED BOUND. ULCER ON BOTTOM JUAN. ENCOURAGED PT TO STAY ON EITHER HIP. TO STAY OFF BOTTOM.
--- NOTE | 2019-01-07 16:29 | NUR ---
PT MOSTLY PLEASANT TODAY. HAS USED URINAL MOST TIMES. ENCOURAGED TO KEEP OFF BACKSIDE AND LAY ON HIP SIDES TO ENCOURAGE HEALING OF ULCERS. THEY ARE OPEN TO AIR. NO CONCERNS AT THIS TIME. BED IN LOW POSITION, CALL LITE IN REACH, CALLS APROP MOSTLY.
--- NOTE | 2019-01-08 03:13 | NUR ---
Shift summary. Pt has had a good night. Pt has been alert, oriented and appropriate. Pt able to turn himself. Pt medicated x 1 with tylenol with good relief. Pt incontinent of bowel- cleaned up x 2 during shift. Speech difficult to understand. Pt likes his snacks.
--- NOTE | 2019-01-08 13:17 | NUR ---
PATIENT REFUSED TO LET HOUSEKEEPING IN TO CLEAN HIS ROOM THIS SHIFT. STATED HE WANTS HIS HOUSKEEPER FROM THE "OUTSIDE".
--- NOTE | 2019-01-08 15:51 | NUR ---
SUMMARY PT WAS CALM, PLEASANT @ ONSET OF SHIFT. HE CONTINUES TO REFUSE HOSP GOWN & SHEETS HOWEVER HE WAS WRAPPED WITH A BATH BLANKET. USING URINAL TO VOID. AROUND LUNCHTIME HE BECAME IRRITABLE & DEMANDING, YELLING @ STAFF, REFUSING TO ALLOW MOTORS ASSEMBLER TO CLEAN IN ROOM. ATTEMPTS TO REDIRECT MOSTLY UNSUCCESSFUL, LET PT KNOW THAT BEHAVIOR UNACCEPTABLE, THAT IF HE WANTS OUR HELP & DEMANDS MET HE MUST TREAT STAFF WITH RESPECT. THIS AFTERNOON HE APOLOGETIC TO STAFF FOR BEHAVIOR, AGAIN PLEASANT. HE ALLOW US TO PLACE BATH BLANKET UNDER HIM. NYSTATIN CREAM APPLIED TO AREAS OF RED RASH R SIDE & BUTTOCKS. HE CONTINUES TO REFUSE WOUND CARE TO BUTTOCKS ULCER SITES, OPEN TO AIR @ THIS TIME. STATE R KNEE PAIN THIS AFTERNOON, PRN TYLENOL GIVEN FOR RELIEF, HE STATE UNABLE TO BR WT OR AMBULATE R/T R KNEE JOINT/PAIN. VSS.
--- NOTE | 2019-01-09 04:55 | NUR ---
VSS, AFEBRILE, A/O, PT SLEPT WELL OVERNOC. PT RESPONDS WELL TO THE MEDICATION REGIMINE THAT HE HAS NOW. NO COMPLAINTS. NO DISRUPTIVE BEHAVIORS. WILL REPORT TO ON-COMING SHIFT.
--- NOTE | 2019-01-09 15:38 | NUR ---
summary PT HAS BEEN A/O X3-4 T/O DAY. HE HAS BEEN PLEASANT, RESPECTFUL TO STAFF. NO ANGER OUTBURSTS, THROWING FOOD ITEMS. HE HAS BEEN USING URINAL & CALLING APPROP. HE HAS MANY FOOD & DRINK REQUESTS, HAVE ENCOURAGED HIM TO USE MODERATION. HE REQUEST NO MEAT ON TRAYS, STATE "DISAGREES" WITH STOMACH. VEGAN, REGULAR DIET ORDERED AFTER CONSULT WITH DR HOPE. HE CONTINUES TO STATE R KNEE PAIN & UNABLE TO BR WT. HAS BEEN IN BED T/O DAY, ABLE TO REPOSITION WITH MINIMAL ASSIST. HAVE GIVEN TYLENOL FOR PAIN RELIEF/CONTROL, EFFECTIVE PER PT. VSS. FRIEND CAME IN TO VISIT HIM TODAY, + INTERACTION.
--- NOTE | 2019-01-10 05:36 | NUR ---
SHIFT SUMMARY A/O, ABLE TO MAKE NEEDS KNOWN. COOPERATIVE WITH CARES. ANSWERS QUESTIONS APPROPRIATELY. C/O DISCOMFORT TO R KNEE, BUT FELL ASLEEP AND RESTED MUCH OF SHIFT. MULTIPLE REQUESTS THROUGHOUT THE NIGHT FOR FOOD AND DRINK. MULTIPLE INCONTINENT EPISODES; HOWEVER, KNOWS WHEN HE IS WET/HAD A BM. APPLIED CREAM TO BACK THAT IS VERY ERYTHEMATOUS. VSS/AFEBRILE. NO ACUTE CHANGES OVERNIGHT. BED IN LOWEST POSITION. CALL LIGHT WITHIN REACH. WCTM. REPORT TO ONCOMING RN.
--- NOTE | 2019-01-10 15:48 | NUR ---
SPOKE TO DR HOPE ABOUT PAIN IN RIGHT KNEE. SPOKE TO PT ABOUT THE USE OF A LIDOCAIN PATCH TO AID WITH THE KNEE PAIN, HE WAS AGREEABLE "ANYTHING THAT WILL HELP." TEMP WAS 101 EARLIER TODAY IS NOW 98.8. [address] PL[address] THE ORDER FOR LIDODERM PATCH DAILY PER DR TAYLOR ORDER.
--- NOTE | 2019-01-10 19:19 | NUR ---
SHIFT SUMMARY- PT HAS MED CHANGES, A NEW CREAM FOR A RED ANGRY LOOKING RASH IN HIS BACK MOSTLY ON THE RIGHT SIDE, POSSIBLY RELATED TO THE FENCE INSTALLER HELPER USED WHEN THE PT SOILS THE BED COUPLED WITH THE PT AFINITY FOR REMOVING HIS LINNENS. SPOKE TO THE PT ABOUT THE IMPORTANCE OF LEAVING THE SHEETS IN PLACE. HE DID NOT REMOVE LINNENS AFTER THAT CONVERSATION. PASSED ON TO NIGHT RN IN REPORT THAT PT NEEDS BED SHEETS EVEN THOUGH HE DOES NOT ALWAYS WANT THEM. SHE AND THE NIGHT AID ARE AWARE.
--- NOTE | 2019-01-11 06:55 | NUR ---
Rn summary: Patient has rested quietly most of shift. Pt had milk and sherbert with meds and has not asked for any other food or drink this shift. Pt has been sleeping on and off. Pt refused vital signs this am. Pt has been otherwise pleasant and cooperative. Pt stable with no changes this shift. Call light in reach. Continue to wait for placement.
--- NOTE | 2019-01-11 19:45 | NUR ---
NO NOTEABLE CHANGES THIS SHIFT.
--- NOTE | 2019-01-12 05:29 | NUR ---
SHIFT SUMMARY PT HAS BEEN CALM AND COOPERATIVE THIS SHIFT. HAS SLEPT WELL DURING THE NIGHT. HAS HAD A BM X 2. NO ACUTE EVENTS NOTED DURING THE NIGHT. WILL CONTINUE TO MONITOR.
--- NOTE | 2019-01-12 18:46 | NUR ---
PT. BACK IN BED . WAS UP IN A RECLINER AND SITTING IN SILVA FOR A WHILE TODAY TOLERATED WELL. PT. IS GRUFF SPEAKING BUT IS QUITE THE JOKER. RASH ON BACK IS MUCH BETTER AND HEALING NICELY
--- NOTE | 2019-01-13 05:55 | NUR ---
SHIFT SUMMARY PT HAS NOT SLEPT MUCH TONIGHT, HAS BEEN REQUESTING MULTIPLE SNACKS AND DRINKS. HAS BEEN USING THE URINAL AT BEDSIDE DURING THE NIGHT. NO ACUTE CHANGES NOTED. WILL CONTINUE TO MONITOR.
--- NOTE | 2019-01-13 17:48 | NUR ---
NO ACUTE CHANGES THIS SHIFT, PATIENT CONTINUES TO AWAIT PLACEMENT. PATIENT MORE COOPERATIVE TODAY, USING URINAL TO VOID. STARTED ON KEFLEX FOR L MARTINEZ SORES AND REDNESS AND ABX OINTMENT APPLIED PER DR. HOPE ORDER. PATIENT TOLERATING DIET, REQUESTS MULTIPLE SNACKS THROUGHOUT THE DAY. NO IV SITE. PATIENT REFUSES TO WEAR ID BRACELET OR DNR BAND. USES CALL LIGHT FREQUENTLY DESPITE BEING TOLD THAT HE WOULD BE ROUNDED ON HOURLY TO ADDRESS NEEDS. KENALOG OINTMENT APPLIED TO RASH ON BACK AND BUTTOCKS AND CONTINUES TO IMPROVE.
--- NOTE | 2019-01-14 05:28 | NUR ---
SHIFT SUMMARY PT HAS SLEPT WELL. NO ACUTE CHANGES NOTED, WILL CONTINUE TO MONITOR.
--- NOTE | 2019-01-14 19:15 | NUR ---
SHIFT SUMMARY: NO ACUTE CHANGES TO REPORT THIS SHIFT. PT A&O; IRRITABLE; HX PTSD/SCHIZOPHRENIA/BIPOLAR; COOPERATIVE WITH CARE. NO IV ACCESS. AWAITING PLACEMENT. REPORT GIVEN TO ONCOMING RN.
--- NOTE | 2019-01-15 07:04 | NUR ---
Assumed Care of Patient Received report from night DWAINE Bishop. Patient is sleeping in bed at this time with sheets and covers on. Will continue to monitor.
--- NOTE | 2019-01-15 07:08 | NUR ---
SHIFT SUMMARY PT CALM COOPERATIVE AND CAN HOLD A CONVERSATION. USING URINAL INDEPENDENTLY. STILL WANTING LOTS TO DRINK AND ICE CREAMS. HE WAS ABLE TO SLEEP T/O NIGHT.
--- NOTE | 2019-01-15 17:26 | NUR ---
Shift Summary AO x 4, pleasant and cooperative with care t/o shift. Pt asking for frequent snacks. Continent with urinal. VSS. Will continue to monitor until shift report given to night nurse.
--- NOTE | 2019-01-15 18:32 | NUR ---
STUDENT HAD PT CARE TODAY, PLEASE REFER TO STUDENT NOTES FOR SHIFT SUMMARY.
--- NOTE | 2019-01-16 07:00 | NUR ---
ASSUMED CARE OF PATIENT FROM ALEKSANDR ISIDRO. PATIENT SLEEPING IN BED AT THIS TIME.
--- NOTE | 2019-01-16 07:11 | NUR ---
SHIFT SUMMARY PT HAS BEEN CALM COOPERATIVE AND PLEASANT. HE WAS ABLE TO SLEEP THROUGH NIGHT JUST WANTING LOTS TO DRINK AND ICE CREAM. INCONT OF BM BUT USING URINAL. BED ALARM IN USE.
--- NOTE | 2019-01-16 17:51 | NUR ---
Shift Summary No acute changes this shift. Continues to be incontinent of BM x 4 this shift. Was able to get pt out of bed and in w/c for a portion of the day. Appetite has been great, frequent snacks provided. VSS. Will continue to monitor.
--- NOTE | 2019-01-16 18:27 | NUR ---
STUDENT HAD PT CARE PLEASE REFER TO STUDENT NOTES FOR SHIFT SUMMARY.
--- NOTE | 2019-01-17 06:32 | NUR ---
SHIFT SUMMARY PT HAS BEEN COOPERATIVE AND PLEASANT. USING URINAL. HE WAS ABLE TO SLEEP T/O NIGHT. PULLS OFF SHEETS FROM BED. LAYING NAKED ON MATTRESS. ASKING FOR MULTIPLE ICE CREAMS AND PEPSI.
--- NOTE | 2019-01-17 07:06 | NUR ---
Assumed care of patient this AM. Received report from Myla ISIDRO. Patient is sleeping at this time.
--- NOTE | 2019-01-17 17:37 | NUR ---
Shift Summary A/O x 4, cooperative with care. Has been continent with urinal at bedside t/o day. No acute changes this shift. VSS. Will continue to monitor until shift report given to next RN.
--- NOTE | 2019-01-17 18:32 | NUR ---
STUDENT HAD PT CARE PLEASE REFER TO STUDENT NOTE FOR SHIFT SUMMARY.
--- NOTE | 2019-01-18 04:08 | NUR ---
SHIFT SUMMARY: PT IS ALERT AND ORIENTED. PT IS CALM AND COOPERATIVE WITH CARE. PT USING THE URINAL IN BED INDEPENDENTLY. PT REQUIRES A LIFT FOR TRANSFERS. PT CALLS APPROPRIATELY. PT REPORTS R. FOOT PAIN, MEDICATING PER EMAR. PT SLEPT INTERMITTENTLY THROUGHOUT THE NIGHT. PT REQUESTING MANY SNACKS AND DRINKS. PT DENIES NAUSEA, VOMITING, AND SOB. AWAITING PLACEMENT, NO ACUTE CHANGES OR COMPLICATIONS THIS SHIFT. BED IN LOW POSITION, CALL LIGHT WITHIN REACH. WILL REPORT TO DAY NURSE.
--- NOTE | 2019-01-18 16:58 | NUR ---
SHIFT SUMMARY PT UP IN W/C FOR APPROX 1 HOUR THIS AFTERNOON IN HALLWAY. HAS BEEN VERBALLY AND PHYSICALLY APPROPRIATE TODAY. NO THROWING ANYTHING FOR YELLING. IS ASKING FOR PUDDING AND DIET SODA FREQUENTLY. USING URINAL TODAY. DOES LAY IN BED NAKED.
--- NOTE | 2019-01-19 06:45 | NUR ---
SHIFT SUMMARY PT IS A 68 Y/O MALE, ORIGINALLY ADMITTED FOR HYPONATREMIA THAT HAS SINCE BEEN RESOLVED. HE IS A&O X 3, AND USUALLY COOPERATIVE WITH CARE. HE WILL OCCASIONALLY USE A URINAL, BUT IS INCONTINENT OF STOOL. HE REPORTED SOME PAIN IN HIS R KNEE AND FOOT, WHICH WAS MEDICATED WITH SCHEDULED TYLENOL. PT'S BP WAS ELEVATED, WHICH WAS TREATED WITH SCHEDULED BP MEDS. NO OTHER ACUTE CHANGES IN PT CONDITION NOTED. WILL CONTINUE TO MONITOR AND TREAT PER EMAR.
--- NOTE | 2019-01-19 18:39 | NUR ---
SHIFT SUMMARY PT UP TO W/C FOR APPROX 1 HOUR AROUND LUNCHTIME TODAY AND TOLERATED WELL. GOT A RIDE AROUND UNIT FOR ENTERTAINMENT. HAS BEEN VERBALLY AND PHYSICALLY APPROPRIATE TODAY AND NO THROWING THINGS FROM BED. HAS ASKED FOR SODA AND SNACKS FREQUENTLY TODAY.
--- NOTE | 2019-01-20 07:42 | NUR ---
NOT SHIFT SUMMARY PT PLEASANT AND COOPERATIVE WITH CARE THIS NIGHT. HAD LARGE BM EARLY IN THE NIGHT. CONTINENT OF URINE VOIDS INTO URINAL. VSS. REQUESTS SODA AND PUDING OFTEN. SLEPT MUCH OF NIGHT. NOT ACUTE CHANGES NOTED. REPORT TO ONCOMING RN.
--- NOTE | 2019-01-20 18:15 | NUR ---
SHIFT SUMMARY PT IN BED THROUGH DAY. AT ONE POINT IN AFTERNOON PT NEEDED REMINDING NOT TO THROW ITEMS WITHIN HIS REACH OUT THE DOOR. HAS BEEN COOPERATIVE OTHERWISE. USING URINAL BUT HAS A TENDENCY TO SPILL AND MISS. INCONTINENT OF STOOL. DECLINED TO HAVE A SHHET ON HIS BED BUT ACCEPTED AND GREEN MORALES. MOVES ABOUT IN BED AND LINENS GET WRINKLED UNDER HIM. REQUESTING SODE AND SNACKS FREQUENTLY.
--- NOTE | 2019-01-20 19:49 | NUR ---
PT SPENT UP IN CHAIR AT BEGING OF SHIFT. JUST NOW PUT BACK IN BED.
--- NOTE | 2019-01-21 04:03 | NUR ---
NOC SHIFT SUMMARY PT HAS BEEN PLEASANT AND COOPERATIVE WITH CARE THIS NIGHT. HE WAS UP IN WHEELCHAIR WHEN SHIFT STARTED. TRANSFERED TO BED SHORTLY BEFORE EVENING MED PASS. HAS SLEPT MUCH OF NIGHT. NO ACUTE CHANGES NOTED AT THIS TIME. VSS. WILL CONTINUE TO MONITOR.
--- NOTE | 2019-01-21 18:49 | NUR ---
SHIFT SUMMARY NO ACUTE CHANGES IN CONDITION THIS SHIFT. PT HAS BEEN IN BED ALL DAY. WILL GET UP THIS EVENING IN CHAIR THIS EVENING. CURRENTLY THERE IS PLACEMENT ISSUES WITH THIS PT. BED LEFT IN LOW, LOCKED POSITION. CALL LIGHT WITHIN REACH.
--- NOTE | 2019-01-21 22:41 | NUR ---
2117 PT LYING IN BED LAUGHING LOUDLY NONSTOP. 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 REPORTS PAIN IN HEAD, FEET AND R KNEE OF 8/10. GAVE TYLENOL, WILL EVAL FOR EFFECT. NO OTHER APPARENT SIGNS OF DISTRESS. CALL LIGHT IS IN REACH. BED ALARM IS ON.
--- NOTE | 2019-01-21 22:47 | NUR ---
PT LYING IN BED, AWAKE, NO APPARENT SIGNS OF DISTRESS. CALLL LIGHT IS IN REACH. BED ALARM IS ON.
--- NOTE | 2019-01-22 00:01 | NUR ---
PT LYING IN BED, EYES CLOSED, APPEAR TO BE RESTING. BREATHING IS EVEN, UNLABORED. NO APPARENT SIGNS OF DISTRESS. CALL LIGHT IS IN REACH. BED ALARM IS ON.
--- NOTE | 2019-01-22 02:02 | NUR ---
PT LYING IN BED, EYES CLOSED, APPEARS TO BE RESTING. BREATHING IS EVEN, UNLABORED. NO APPARENT SIGNS OF DISTRESS. CALL LIGHT IS IN REACH. BED ALARM IS ON.
--- NOTE | 2019-01-22 02:35 | NUR ---
PT IS AAO X 1-2. REPORTS PAIN IN FEET, HEAD AND R KNEE. HAS SCHEDULED TYLENOL. PT REFUSES STOCKINGS. CELL JACEK OSORIO ON R TOES. USES LIDOCAINE PATCH ON R KNEE.
--- NOTE | 2019-01-22 06:30 | NUR ---
PT LYING IN BED, EYES CLOSED, APPEARS TO BE RESTING. BREATHING IS EVEN, UNLABORED. NO APPARENT SIGNS OF DISTRESS. CALL LIGHT IS IN REACH. BED ALARM IS ON. NO OTHER CHANGES THIS SHIFT.
--- NOTE | 2019-01-22 17:47 | NUR ---
SHIFT SUMMARY NO CHANGES IN ASSESSMENT AT THIS TIME. VSS. PT UP IN CHAIR IN HALLWAY. DENIES NEEDS AT THIS TIME. PT CONTINUES TO DRINK A LARGE AMOUNT OF FLUIDS DAILY. WILL CONTINUE TO MONITOR UNTIL TURNOVER IS COMPLETE.
--- NOTE | 2019-01-22 21:39 | NUR ---
2037 PT LYING IN BED, REPORTS PAIN IN R FOOT AND R KNEE. GAVE SCHEDULED TYLENOL. NO OTHER APPARENT SIGNS OF DISTRESS. CALL LIGHT IS IN REACH. BED ALARM IS ON.
--- NOTE | 2019-01-22 21:40 | NUR ---
PT LYING IN BED, AWAKE, NO APPARENT SIGNS OF DISTRESS. CALL LIGHT IS IN REACH. BED ALARM IS ON.
--- NOTE | 2019-01-22 23:51 | NUR ---
PT LYING IN BED, EYES CLOSED, APPEARS TO BE RESTING.BREATHING IS EVEN, UNLABORED. NO APPARENT SIGNS OF DISTRESS. CALL LIGHT IS IN REACH. BED ALARM IS ON.
--- NOTE | 2019-01-23 01:54 | NUR ---
PT LYING IN BED, AWAKE, NO APPARENT SIGNS OF DISTRESS. CALL LIGHT IS IN REACH. BANDAR ALARM IS ON.
--- NOTE | 2019-01-23 03:41 | NUR ---
PT AAO TO SELF. ON RA. REPORTS PAIN IN R FOOT AND R KNEE. HAS SCHEDULED TYLENOL AND A LIDOCAINE PATCH. PT REFUSES STOCKINGS. NO IV, OK TO LEAVE OUT. SCABS ON L MARTINEZ AND SBD ON R TOES.
--- NOTE | 2019-01-23 10:53 | NUR ---
PT PLEASANT COOP A/O THIS AM. STATES PAIN IN RT KNEE DOWN TO FOOT. H/R REG, NO MURMER NOTED. NO TLE. LUNGS CLEAR, RESP EASY, UNLABORED. ON R.A. BT X4 LAST BM THIS AM. VOIDS URINAL. NO OTHER CONCERNS AT THIS TIME. BED IN LOW POSITOIN, CALL LITE IN REACH, OCC CALLS APPROP. BED ALARM ON FOR SAFETY
--- NOTE | 2019-01-23 15:03 | NUR ---
SPOKE TO [facility]PHYS THERAPY. PT EMPHATICALLY STATES NO THERAPY UNTIL NEW CHAIR FROM [facility] OR HIS HOME. CALLED LISTED CAREGIVER AND LISTED GUARDIAN ABOUT CHAIR. LMTC FOR BOTH. BED IN LOW POSITION,C ALL LITE IN REACH, CALLS APPROP
--- NOTE | 2019-01-23 16:07 | NUR ---
ATTEMPTED TO GET PT TO WHEEL CHAIR AND CONSIDER THERAPY. BECAME IRRITATED. UPSET NOT HIS WHEELCHAIR. CALLED CASH APPLICATIONS ANALYST AND POA. LMTC ABOUT CHAIR. PT AND I ATTEMPED SEVERAL TIMES TO GET IM TO MOVE. NO GO. REFUSED. BED IN LOW POSTIION, KEVIN LITE IN REACH, CALLS OCCATIONALLY, BED ALARM ON FOR SAFETY
--- NOTE | 2019-01-23 16:24 | NUR ---
JAMA CALLED BACK RE TY. STATES THINKS CHAIR HERE. CALLED SECURITY. SARAH TO CHECK AND CALL BACK.
--- NOTE | 2019-01-23 17:36 | NUR ---
TRANSFERRED TO TO WHEELCHAIR WITH LIFT WITH AIDE. PT WHEELED TO HALLWAY.
--- NOTE | 2019-01-24 05:56 | NUR ---
SUMMARY: A/O TO SELF AND SURROUNDINGS. HE SPECIFIES NEEDS AND CALLS FREQUENTLY FOR SNACKS. PT REPOSITIONS SELF IN BED AND STATED HE'D COOPERATE W/PT IF "[facility]" WAS HIS THERAPIST. HE SAID "SHE WAS ONE OF THE NICE ONES BUT WOULDN'T WORK W/THE OTHERS". HE USED URINAL INDEPENDENTLY AND CALLED FOR IT TO BE EMPTIED. KENALOG CREAM APPLIED TO L.MARTINEZ ABRASIONS AND SHOWER CAP PLACED TO R.FOOT PER PT REQUEST. HE REFUSED ATTENDS AND CHARLEEN HOSE. PT DENIED NEEDING ADDITIONAL PAIN MEDS AND SAID SCHEDULED TYLENOL W/TRAMADOL WAS EFFECTIVE. LIDODERM PATCH REMOVED FROM R.KNEE PER RX. LIFT STILL REQUIRED OOB AND PT CONT'S TO MAKE BIZARRE STATEMENTS AT TIMES. NO ACUTE CHANGES, VSS/AFEBRILE. WILL MONITOR AND REPORT TO DAY RN. PT STILL AWAITING PLACEMENT.
--- NOTE | 2019-01-24 17:46 | NUR ---
PATIENT IS ALERT AND ORIENTED AND HAS BEEN COOPERATIVE WITH NURSING CARE. TODAY. PATIENT DID REFUSE TO WORK WITH PHYSICAL THERAPY ONCE AGAIN. KNEE/FOOT PAIN WAS TREATED PER EMAR. USES THE URINAL IN THE BED. CALLS APPROPRIATELY. WILL CONTINUE TO MONITOR
--- NOTE | 2019-01-25 04:24 | NUR ---
SUMMARY: A/OX3, SPECIFIES NEEDS AND COOPERATIVE W/CARE. HE CALLS FOR SNACKS FREQUENTLY AND CONT'S TO REFUSE CLOTHES AND DVT PROPHYLAXIS. LIFT REQUIRED OOB BUT PT SLEPT MOST OF NOCTE. PT USES URINAL INDEPENDENTLY BUT WAS INCONTINENT OF STOOL THIS SHIFT. HE'S DENIED FOR PRN MEDS AND REPORTS PAIN MANAGED TO FEET AND L.KNEE W/ SCHEDULED TYLENOL AND TRAMADOL. LIDOCAINE PATCH WAS REMOVED FROM KNEE BY PT WHEN TIME. NO ACUTE CHANGES, VSS/AFEBRILE AND STILL AWAITING PLACEMENT. WCTM AND REPORT TO DAY RN.
--- NOTE | 2019-01-25 18:16 | NUR ---
PATIENT IS ALERT AND ORIENTED AND COOPRATIVE WITH CARE. PATIENT CALLS APPROPRIATELY. PAIN TREATED PER EMAR. PATIENT USES URINAL IN BED INDEPENDENTLY AT TIMES. HE IS INCONTINENT OF BOWEL. NO ATTENDS IN PLACE. WILL CONTINUE TO MONITOR.
--- NOTE | 2019-01-26 06:51 | NUR ---
`at baseline, demanding, cooperative to a point, refused basic sanitary requirements, call light in reach, no IV, walking rounds completed with day staff
--- NOTE | 2019-01-26 08:50 | NUR ---
ATTEMPTED TO TAKE PHOTS TO UPDATE WOUND PHOTOS, PT REFUSED AT THIS TIME.
--- NOTE | 2019-01-26 17:12 | NUR ---
SHIFT SUMMARY- PT HAS BEEN PLEASANT AND COOPERATIVE T/O MOST OF THE SHIFT, OCCASIONALLY REFUSES CARE OR REQUESTS FROM STAFF. PT DID REFUSE FOR UPDATED PICTURES OF WOUNDS TO BE COMPLETED. NO OTHER ACUTE CHANGES THIS SHIFT.
--- NOTE | 2019-01-26 18:22 | NUR ---
PT WAS COOPERATIVE AND FOLLOWED DIRECTIONS. NEW PHOTOS TAKEN. PT RESTED PERIODICALLY THROUGHOUT THE DAY. NO ACUTE CHANGES THIS SHIFT.
--- NOTE | 2019-01-27 07:29 | NUR ---
NO CHANGES TO REPORT HERE.
--- NOTE | 2019-01-27 18:03 | NUR ---
SHIFT SUMMARY THE PATIENT PRESENTED THIS SHIFT A&O X3, VITALS WNL AND WITH CLEAR LUNG SOUNDS. THE PATIENT HAS ACTED WITH IN REASON THIS SHITH , IS CONTINUALLY NEEDING. THE PATIENT IS USING HIS URINAL. THE PATIENT ASKED FOR HIS BUFFET ATTENDANT AND GAURDIAN TO CALLED AND TO BE ASKED ABOUT THEM COMING TO VISIT, IT WAS DONE. THE PATIENT IS RESTING IN HIS BED AT TIME, WILL CONTINUE TO MONITOR.
--- NOTE | 2019-01-28 04:37 | NUR ---
NO REAL CHNGES TO REPORT FOR THIS PATIENT. ADEQUATE I&O FOR THIS PATIENT. PT C/O PAIN AT BEDTIME AND RECIEVED PAIN MEDS PER EMAR. IF WE ARE ABLE TO WE WILL GET HIM INTO HIS WHEEL CHAIR THIS MORNING.
--- NOTE | 2019-01-28 17:03 | NUR ---
SHIFT SUMMARY PATIENT IS PLEASANT AT THIS TIME. NO CONCERNS FROM THE STAFF TODAY. HE HAS BEEN PLEASANT AND HAS LISTENED TO ALL REQUESTS.
--- NOTE | 2019-01-29 03:58 | NUR ---
SHIFT SUMMARY PATIENT HAD NO ACUTE CHANGES OBSERVED THIS SHIFT. AXOX 3 AND BEDFAST/WC BOUND. TAKES MEDICATION WHOLE WITH ICE CREAM. SCHEDULE TYLENOL AND ULTRAM 50 MG PO FOR FEET PAIN. NO IV ACCESS. USES URINAL AT BEDSIDE. COOPERATIVE WITH CARE. DENIES SOB AND N/V. CALL LIGHT IN REACH. BED IN LOWEST POSITION. WILL CONTINUE TO MONITOR UNTIL DAY SHIFT NURSE ASSUMES CARE.
--- NOTE | 2019-01-29 18:42 | NUR ---
SHIFT SUMMARY PATIENT IS ALERT AND ORIENTED TO HIMSELF AND HIS SURROUNDINGS. HE IS PLEASANT TODAY AND HAS NO ACUTE CONCERNS OF THIS TIME.
--- NOTE | 2019-01-30 03:50 | NUR ---
SHIFT SUMMARY PATIENT HAD NO ACUTE CHANGES OBSERVED THIS SHIFT. TAKES MEDICATION WHOLE WITH ICE CREAM. SCHEDULE TYLENOL AND ULTRAM 50 MG PO FOR FEET PAIN. AXOX 3 AND W/C BOUND. USES URINAL AT BEDSIDE. NO IV ACCESS. VSS/AFEBRILE. DENIES SOB AND N/V. COOPERATIVE WITH CARE. CALL LIGHT IN REACH. BED IN LOWEST POSITION. WILL CONTINUE TO MONITOR UNTIL DAY SHIFT NURSE ASSUMES CARE.
--- NOTE | 2019-01-30 18:43 | NUR ---
SHIFT SUMMARY QUITE PLEASANT THROUGHOUT DAY. USING URINAL WELL. NO ACUTE CHANGES. EATING AND DRINKING WELL. PAIN CONTROLLED WITH SCHEDULED MEDS.
--- NOTE | 2019-01-31 05:07 | NUR ---
SHIFT SUMMARY PATIENT HAD NO ACUTE CHANGES OBSERVED THIS SHIFT. AXO X3 AND W/C BOUND. TAKES MEDICATION WHOLE WITH ICE CREAM. SCHEDULE PAIN MEDICATION PER EMAR. USES URINAL AT BEDSIDE. NO IV ACCESS. DENIES SOB AND N/V. COOPERATIVE WITH CARE. CALL LIGHT IN REACH. BED IN LOWEST POSITION. WILL CONTINUE TO MONITOR UNTIL DAY SHIFT NURSE ASSUMES CARE.
--- NOTE | 2019-01-31 17:59 | NUR ---
SUMMARY PT HAS BEEN CALM, COOPERATIVE GENERALLY T/O DAY. A/O X4. HE HAS BEEN UP IN W/C VIA LIFT, OUT IN SILVA. HE STATE CONTINUING R FOOT PAIN, SCHEDULED ULTRAM & TYLENOL PROVIDE CONTROL HOWEVER HE STATE INCOMPLETE RELIEF, DECLINE LIDODERM, DR HOPE MANAGING MEDS. PT STATE UNABLE TO STAND OR BR WT. VSS. SOCSERV CONTINUING ATTEMPT TO FIND ADEQUATE PLACEMENT.
--- NOTE | 2019-02-01 06:49 | NUR ---
SHIFT SUMMARY PATIENT IS ALERT AND ORIENTED. PT DID NOT GET OUT OF BED. CALL LIGHT IN REACH, NO NEW CHANGES IN STATUS. VITALS STABLE.
--- NOTE | 2019-02-01 15:12 | NUR ---
SUMMARY PT IS A/O X4, HE HAS BEEN COOPERATIVE WITH CARE TODAY HOWEVER CONTINUES TO REFUSE ATTENDS OR GOWN WHILE IN HIS ROOM IN BED. HE CONTINUES TO STATE R FOOT PAIN, HOWEVER NO SWELLING OR REDNESS NOTED, TYLENOL & UTRAM GIVEN FOR RELIEF. L MARTINEZ SCAB & REDNESS NOTED, PT DECLINE DRSG HOWEVER ALLOWS ANTIBX OINT. INDUSTRIAL GAS SERVICE HELPER PROVIDE BEDBATH. VSS. CONTINUE TO WAIT PLACEMENT/SOCSERV.
--- NOTE | 2019-02-02 05:52 | NUR ---
SHIFT SUMMARY NO ACUTE CHANGES TO PRESENT THIS SHIFT. PT WITH HX OF SCHIZOPHRENIA, PTSD, AND BIPOLAR. REFUSES TO WEAR CLOTHES OR KEEP SHEET OR BLANKET ON. CURTAIN REMAINS PULLED. CALLS FREQUENTLY FOR PEPSI, SHANE MILK, AND JUICE. HAS LRG AMT OF PO INTAKE EACH SHIFT. VOIDS HEAVILY. DID CALL FOR ASSIST WITH URINAL AND BED KIM FOR BM THIS SHIFT. MORBIDLY OBESE. DOES NOT BEAR WT. W/C BOUND VIA LIFT. PT CONTINUES WAITING PLACEMENT. CALL LT IN REACH.
--- NOTE | 2019-02-02 10:53 | NUR ---
NURSE WOKE PT FOR MORNING MEDICATIONS BUT PT STATED THAT WE WANTS THEM "A LITTLE LATER" AND THEN WENT BACK TO SLEEP.
--- NOTE | 2019-02-02 18:35 | NUR ---
SHIFT SUMMARY PT AXO, PLEASANT AND COOPERATIVE WITH CARE. PT SLEPT MOST OF THE SHIFT, ONLY AWAKE FOR MEALS AND TO VOID. PT VOIDING APPROPRIATELY. VSS. NO ACUTE CHANGES THIS SHIFT. PT REPOSITIONS SELF. BED IN LOW POSITION, CALL LIGHT WITHIN REACH
--- NOTE | 2019-02-03 05:49 | NUR ---
SHIFT SUMMARY NO ACUTE CHANGES TO PRESENT THIS SHIFT. PT REQUESTED TO GET UP TO W/C AT START OF SHIFT. PT ASSISTED BY BOTH MARKETING SALES CONSULTANT'S VIA LIFT. PT UP TO CHAIR FOR A WHILE OUT IN SILVA TALKING WITH VISITORS. PT THEN BACK TO BED WHEN READY. MEDS GIVEN PER EMAR. PAIN MEDICATIONS EFFECTIVE AND PT ABLE TO SLEEP. RESTED WELL MOST OF NIGHT. USES CALL LT FREQUENTLY WHEN AWAKE. CALLS FOR LOTS OF DRINKS AND SNACKS. CONTINUES TO WAIT FOR PLACEMENT.
--- NOTE | 2019-02-03 20:02 | NUR ---
SHIFT SUMMARY- PT IS STILL AWAITING PLACEMENT, PT ALERT AND ORIENTED. PT LIKES PEPSI, DURING REPORT NIGHT RN STATED IF PEPSI CAN BE STOPPED EARLY IN THE DAY PT SLEEPS T/O THE NIGHT. PT HAS BEEN VERY PLEASENT TODAY, OFTEN LAUGHING WITH STAFF. PT CALLS FREQUENTLY FOR BEVERAGES, SOMETIMES EVERY 5 MINUTES FOR 1LITER OF PEPSI, SPOKE TO THE PT AND HE AGREED TO SWITCH TO ION MIST (DIET) BUT BEGAN CALLING FOR MORE EVERY 5-15 MINUTES. SPOKE TO PT ABOUT TOO MUCH PO FLIUDS BEING A BAD THING (12 OR MORE LITERS A DAY IS TOO MUCH) PT AGREED TO HAVE 1 ION MIST PER HOUR AND WATER IN BETWEEN. HOPEFULLY HE WILL BE ABLE TO SLEEP WELL AGAIN COTY, PASSED ON IN BEDSIDE REPORT TO NIGHT RN HEMANTH.
--- NOTE | 2019-02-04 07:09 | NUR ---
02/04/19 0600 SLEEPING WELL SINCE 0200. WHEN AWAKE FREQUENTLY REQUESTS SNACKS/DRINKS. VITALS STABLE.
--- NOTE | 2019-02-04 19:46 | NUR ---
SHIFT SUMMARY- PT SLEPT MORE THIS SHIFT THAN YESTERDAY, HAS BEEN PLEASENT AND COOPERATIVE WITH CARE. PT HAS HAD NO ACUTE CHANGES AND IS AWAITING PLACEMENT.
--- NOTE | 2019-02-05 04:19 | NUR ---
SHIFT SUMMARY: PT IS ALERT AND ORIENTED. PT IS CALM AND COOPERATIVE WITH CARE. PT CALLS APPROPRIATELY. PT REQUIRES A LIFT FOR TRANSFERS, W/C BOUND AT BASELINE. PT REPORTS R. FOOT PAIN, MEDICATING PER EMAR. PT DENIES NAUSEA, VOMITING, AND SOB. PT SLEPT MUCH OF THE NIGHT. AWAITING PLACEMENT. NO ACUTE CHANGES. WILL REPORT TO DAY NURSE.
--- NOTE | 2019-02-05 19:34 | NUR ---
PT A/OX3, PLEASANT AND COOPERATIVE, THE PT IS BEDREST UP WITH LIFT, THE PT APPEARS TO BE BREATHING EASILY ON RA, THE PT WAS MEDICATED FOR PAIN X1 THIS AM, THE PT USED THE URINAL APPROPRIATLY, THE PT CONTINUES TO WAIT FOR PLACEMENT, NO NEW CHANGES NOTICED THIS SHIFT, CALL LIGHT IN REACH
--- NOTE | 2019-02-06 06:01 | NUR ---
SUMMARY: NO ACUTE CHANGE TONIGHT, VSS, PT IS A&O X3. PT ABLE TO SLEEP WELL TONIGHT. MOVES WELL IN BED, USES URINAL. DENIED ANY PAIN. PT IS AWAITING PLACEMENT AT THIS TIME.
--- NOTE | 2019-02-06 16:58 | NUR ---
PT IS A/OX3, PLEASANT AND COOPERATIVE, THE PT REMAIN IN THE BED PER HIS CHOICE IS A LIFT PATIENT WHEN UP, THE PT APPEARS TO BE BREATHING EASILY ON RA, CALL LIGHT IN REACH, WILL CONTINUE TO MONITOR AND ASSESS FOR CHANGES
--- NOTE | 2019-02-07 05:20 | NUR ---
SHIFT SUMMARY A/O, ABLE TO MAKE NEEDS KNOWN. COOPERATIVE WITH CARE. ANSWERS QUESTIONS APPOPRIATELY. STATED DURING SHIFT CHANGES THAT DID NOT WISH TO WEAR DNR BAND AND DEMANDED TO KNOWN WHICH DOCTOR PLACED THAT ORDER; WANTED TO BE A FULL CODE AND HAVE ALL MEASURES TAKEN. SPOKE TO ON-CALL PHYSICIAN; CODE STATUS CHANGED TO FULL. MEDS WHOLE WITH JASON. NO ACUTE CHANGES OVERNIGHT. APPEARED TO REST MUCH OF SHIFT. BED IN LOWEST POSITION. CALL LIGHT AND BELONGINGS WITHIN REACH. WCTM. REPORT TO ONCOMING RN.
--- NOTE | 2019-02-07 17:57 | NUR ---
SHIFT SUMMARY. A&OX3, PLEASANT, COOPERATIVE, AWARE OF LIMITATIONS. PT UP TO W/C THIS AFTERNOON TOLERATING WELL. SCHEDULED PAIN MEDICATIONS MANAGED PAIN TO PT'S R FOOT WELL. NO N/V, SOB.
--- NOTE | 2019-02-07 20:05 | NUR ---
SHIFT CHANGE; PATIENT RESTING IN HIS ROOM, HAD A VERY LARGE BM. DENIED ANY ACUTE CHANGES OR CONCERNS AT THIS TIME. REQUEST THAT HE HAVE SHERBERT WITH PILLS TONIGHT. ASSISSTED IN CLEAN UP AND GETTING HIM REPOSITIONED, NO OTHER CONCERNS AT THIS TIME.
--- NOTE | 2019-02-08 05:21 | NUR ---
SHIFT SUMMARY: PATIENT HAD NO ACUTE CHANGES T/O THE DIETITIAN HELPER. TOOK MEDS WITH NO PROBLEMS, REMAINED SLEEPING ALL NIGHT, DID HAVE EXTRA LARGE BOWEL MOVMENT AT BEGINNING OF SHIFT. NO OTHER CONCERNS WERE NOTED THIS SHIFT.
--- NOTE | 2019-02-08 18:30 | NUR ---
SHIFT SUMMARY. PT PLEASANT AND APPRECIATIVE OF CARE THROUGHOUT SHIFT. NO NEW CHANGES.
--- NOTE | 2019-02-09 04:35 | NUR ---
SHIFT SUMMARY: PATIENT HAS NOT HAD ANY ACUTE CHANGES OR CONCERNS. MEDS PER EMAR, PAIN REMAINED THE SAME, PROVIDED FOR NEEDS PRN. SLEPT OFF AND ON THROUGHOUT THE NIGHT. WILL REPORT TO DAY SHIFT RN.
--- NOTE | 2019-02-09 19:15 | NUR ---
SHIFT SUMMARY NO ACUTE CHANGES THIS SHIFT. WAITING FOR PLACEMENT. PT HAS BEEN REFUSING HIS MEALS AND REFUSED TO ORDER SOMETHING FROM THE MENU THAT IS FOR THE CAFETERIA. PT TOLD THIS RN AND THE BUTTON BREAKER TO LEAVE HIS ROOM WHEN OFFERING THE MENU. PT WANTING TO EAT ICE CREAM AND PUDDING ALL DAY. NO FURTHER REQUESTS. REPORT GIVEN TO JOEY ISIDRO.
--- NOTE | 2019-02-10 08:09 | NUR ---
Rn summary: Patient remains stable. Pt did rest well a good portion of the shift. Pt does request frequent snacks. Pt was cooperative and polite. Pt using urinal. Call light in reach.
--- NOTE | 2019-02-10 18:50 | NUR ---
SHIFT SUMMARY NO CHANGES THIS SHIFT. PT CONTINUES TO NOT WANT TO EAT HIS MEALS AND HAVE SNACKS ALL DAY. MEDICATED FOR RIGHT ANKLE PAIN WITH SCHEDULED MEDICATIONS. PT SLEEPS A LOT OF THE SHIFT. USES CALL LIGHT FOR NEEDS. WAITING FOR PLACEMENT. CALL LIGHT IN REACH.
--- NOTE | 2019-02-11 03:49 | NUR ---
SHIFT SUMMARY: 68 Y/O OBESE MALE RESTED COMFORTABLY ALL SHIFT. PT DENIES PAIN OR NAUSEA. PT HAD APPROPRIATE BEHAVIORS INTERACTING WITH STAFF. PTS BED LOW POSITION, CALL LIGHT AT SIDE.
--- NOTE | 2019-02-11 15:15 | NUR ---
PICKED UP PATIENTS LUNCH TRAY AT 1515 WHILE PATIENT WAS SLEEPING AND HE HAD NOT TOUCHED IT YET. RN NOTIFIED THAT PATIENT DID NOT EAT LUNCH THIS SHIFT.
--- NOTE | 2019-02-11 19:16 | NUR ---
SHIFT SUMMARY- PT C/O RIGHT FOOT/KNEE PAIN THIS AM. MEDS GIVEN PER EMAR. DENIES SOB. RESP E/U ON RA. DENIES N/V. REFUSING Q2H TURNS. REFUSING LINEN ON BED. PT ONLY WANTS MORALES UNDER HIM. NO OTHER SIGNIFICANT CHANGES THIS SHIFT.
--- NOTE | 2019-02-12 03:49 | NUR ---
SHIFT SUMMARY: 68 Y/O OBESE MALE RESTED QUIETLY ALL SHIFT. PT EATING SHERBERT ICE CREAM X 2 CONTAINERS PRIOR BEDTIME. PT HAPPY AND COOPERATIVE WITH APPROPRIATE BEHAVIOR NOTED WITH NURSING STAFF. PT C/O GENERALIZED PAIN WITH SCHEDULED ULTRAM 50MG PO PROVIDING ADEQUATE PAIN RELIEF. PT DENIES NAUSEA. PTS BED LOW POSITION, CALL LIGHT AT SIDE.
[2019-02-12 12:25] LABS: BASOPHILS ABSOLUTE AUTO 0.02 K/mm3 (0.00-0.23); BASOPHILS PERCENT AUTO 0 % (0-2); EOSINOPHILS ABSOLUTE AUTO 0.23 K/mm3 (0.00-0.68); EOSINOPHILS PERCENT AUTO 3 % (0-6); Hematocrit 36.9 % (37.0-53.0); Hemoglobin 12.2 g/dL (13.5-17.5); IMMATURE GRAN ABSOLUTE AUTO 0.07 K/mm3 (0.00-0.10); IMMATURE GRAN PERCENT AUTO 1 % (0-1); LYMPHOCYTES ABSOLUTE AUTO 2.28 K/mm3 (0.84-5.20); LYMPHOCYTES PERCENT AUTO 31 % (21-46); MONOCYTES ABSOLUTE AUTO 0.79 K/mm3 (0.16-1.47); MONOCYTES PERCENT AUTO 11 % (4-13); Mean Corpuscular HGB 29.9 pg (26.0-34.0); Mean Corpuscular HGB Conc 33.1 g/dL (31.5-36.5); Mean Corpuscular Volume 90 fL (80-100); NEUTROPHILS ABSOLUTE AUTO 3.92 K/mm3 (1.96-9.15); NEUTROPHILS PERCENT AUTO 54 % (41-73); Platelet Count 240 K/mm3 (150-400); RDW Coefficient Variation 13.6 % (11.7-14.2); RDW Standard Deviation 45.3 fL (35.1-46.3); Red Blood Cell Count 4.08 M/mm3 (4.30-5.90); White Blood Cell Count 7.31 K/mm3 (4.00-11.30)
[2019-02-12 12:43] LABS: Anion Gap 4 mmol/L (6-16); Blood Urea Nitrogen 11 mg/dL (8-24); Bun/Creatinine Ratio 14.6 (12.0-20.0); CO2, Blood 32 mmol/L (21-32); Chloride, Blood 102 mmol/L (98-108); Creatinine, Blood 0.75 mg/dL (0.60-1.20); Glomerular Filtration Rate >60 (60-); Glucose, Blood 75 mg/dL (70-99); Phosphorus, Blood 4.5 mg/dL (2.5-4.9); Sodium, Blood 138 mmol/L (136-145)
--- NOTE | 2019-02-12 17:53 | NUR ---
SHIFT SUMMARY- PT AXO X3. PT C/O R FOOT/KNEE PAIN THIS AM. MEDS GIVEN PER EMAR. PT DENIES SOB. RESP E/U ON RA. DENIES N/V. MEPILEX PLACED ON ABRASION ON L MARTINEZ. PT REFUSING Q2H TURNS. PT REFUSING LINEN ON BED. PT ONLY WANTING MORALES PAD. NO OTHER SIGNIFICANT CHANGES THIS SHIFT.
--- NOTE | 2019-02-13 04:34 | NUR ---
SHIFT SUMMARY: 68 Y/O MORBID OBESE MALE RESTED COMFORTABLY ALL SHIFT WITH NO BEHAVORIAL ISSUES NOTED. PT DENIES PAIN OR NAUSEA. PT CONTINUES TO EAT SHERBERT ICE CREAM X 2 CONTAINERS PRIOR TO BED. PT CONTINUES TO HAVE BOWEL MOVEMENTS IN BED WHILE NOT REQUESTING USAGE OF BEDPAN FROM STAFF. PT UTILIZING URINAL. PTS BED LOW POSITION, CALL LIGHT AT SIDE.
--- NOTE | 2019-02-13 17:30 | NUR ---
SHIFT SUMMARY- PT AXO X4. PT C/O R FOOT/KNEE PAIN THIS AM. MEDS GIVEN PER EMAR. DENIES N/V. DENIES SOB. RESP E/U ON RA. REFUSING Q2H TURNS. PT REFUSING LINEN ON BED. PT ONLY WANTS MORALES PAD UNDER HIM AND BLANKET OVER HIM. PT UP IN WHEELCHAIR THIS PM. NO OTHER SIGNIFICANT CHANGES THIS SHIFT.
--- NOTE | 2019-02-14 05:53 | NUR ---
MENTAL HEALTH WORKER SUMMARY PT/ A&O X 3, UP IN WHEELCHAIR IN THE HALLWAY AT THE BEGINNING OF THE EVENING THEN BACK IN BED FOR THE REMAINDER OF THE SHIFT. PT. REQUESTING ONLY MORALES PAD TO BE PLACED ON THE BED AND FLAT SHEET. REFUSED EVENING VITALS WITH THE EXCEPTION OF BP. ALSO REFUSED 0400 VITAL SIGNS. PT. HAS RESTED COMFORTABLY DURING THE ENTIRE SHIFT. DENIES NEEDS AT THIS TIME. CALL LIGHT WITHIN REACH, SIDE RAILS UP X3, AND BED ALARM ON. WILL CONT TO MONITOR.
--- NOTE | 2019-02-14 17:22 | NUR ---
SHIFT SUMMARY- PT HAS BEEN COOPERATIVE WITH CARE T/O THE DAY. PT MEDICATED WITH SCHEDULED TYLENOL AND TRAMADOL FOR RIGHT FOOT AND KNEE PAIN, NO OTHER COMPLAINTS T/O THE SHIFT. PT AWAITING PLACEMENT.
--- NOTE | 2019-02-15 05:45 | NUR ---
PT. RESTING COMFORTABLY T/O SHIFT, NO APPARENT DISTRESS NOTED. UP IN THE WHEELCHAIR EARLY EVENING AND RETURNED TO BED FOR REST OF THE NIGHT. DENIES ANY NEEDS AT THIS TIME. CALL LIGHT WITHIN REACH AND SIDE RAILS UP X3. WILL CONT TO MONITOR.
--- NOTE | 2019-02-15 16:45 | NUR ---
SHIFT SUMMARY- PT A/O TO PERSON AND PLACE. PT PLEASANT AND COOPERATIVE T/O THE SHIFT. PT OFFERED SHOWERED BUT REFUSED. MEDICATED WITH SCHEDULED TYLENOL AND TRAMADOL FOR RIGHT KNEE AND FOOT PAIN. NO OTHER COMPLAINTS T/O THE SHIFT. PT USES URINAL INDEP AT BEDSIDE. PT AWAITING PLACEMENT. NO OTHER ACUTE CHANGES THIS SHIFT.
--- NOTE | 2019-02-15 22:55 | NUR ---
PT. ASLEEP IN BED, NO APPARENT DISTRESS NOTED. CALL LIGHT WITHIN REACH, SIDE RAILS UP X3, AND BED ALARM ON. WILL CONT TO MONITOR.
--- NOTE | 2019-02-16 04:27 | NUR ---
PT. RESTED COMFORTABLY IN BED THE ENTIRE NIGHT. NO ACUTE CHANGES. PAIN MEDICATIONS GIVEN EARLIER IN THE EVENING FOR FOOT PAIN. PT. COOPERATIVE W/O COMPLAINTS T/O THE NIGHT. AWAITING PLACEMENT TO ASSISTED LIVING FACILITY. WILL CONT TO MONITOR.
--- NOTE | 2019-02-17 04:30 | NUR ---
SHIFT SUMMARY NO ACUTE CHANGES OVERNIGHT. PT AWAKE FOR MAJORITY OF NIGHT AND REQUESTS MULTIPLE FOOD AND DRINK ITEMS T/O THE SHIFT. PT PLEASANT TO STAFF. WILL CONTINUE TO MONITOR.
--- NOTE | 2019-02-17 19:10 | NUR ---
PT. UP IN WC MOST OF THE DAY JUST SITTING IN THE SILVA AND WATCHING WHAT WAS GOING ON. TOTALLY APPROPRIATE. NO OTHER NOTEABLE CHANGES THIS SHIFT.
--- NOTE | 2019-02-18 05:53 | NUR ---
SHIFT SUMMARY NO ACUTE CHANGES T/O THE NIGHT. PATIENT PLEASANT TOWARD STAFF AND TOOK ALL MEDICATIONS ORDERED. PATIENT SLEPT T/O THE NIGHT. WILL CONTINUE TO MONITOR.
--- NOTE | 2019-02-18 09:55 | NUR ---
PT REFUSED MEDS. STATES "I DON'T WANT ANY OF THOSE I'LL TAKE THEM LATER"
--- NOTE | 2019-02-18 10:15 | NUR ---
PT SLEEPING RR EVEN AND UNLABORED. EASILY AROUSED WITH VERBAL STIMULI.
--- NOTE | 2019-02-18 17:37 | NUR ---
SHIFT SUMMARY PT CALM AND COOPERATIVE ALL DAY. UP IN W/C FOR SEVERAL HOURS. EATING AND DRINKING WELL. USING URINAL INCONTINENT WITH BOWELS.
--- NOTE | 2019-02-19 06:19 | NUR ---
SHIFT SUMMARY PT IS A 69 Y/O MALE, ORIGINALLY ADMITTED FOR HYPONATREMIA THAT HAS SINCE BEEN RESOLVED, AND CURRENTLY WAITING FOR PLACEMENT. HE IS A&O X 3, AND WHEELCHAIR BOUND AT BASELINE. PT REPORTED CHRONIC PAIN IN HIS R KNEE, WHICH IS WELL COVERED BY HIS CURRENT PAIN MED REGIMEN. NO COMPLAINTS OF NAUSEA OR SOB. VITALS REMAINED STABLE. NO OTHER ACUTE CHANGES IN PT CONDITION NOTED. WILL CONTINUE TO MONITOR AND TREAT PER EMAR UNTIL HAND OFF TO DAY SHIFT.
--- NOTE | 2019-02-19 16:24 | NUR ---
SHIFT SUMMARY PATIENT HAS HAD NO ACUTE ISSUES. UP IN CHAIR X2 TODAY. GIVEN SODAS PRN. INCONTINENT. HE IS EAGER FOR LTC PLACEMENT.
--- NOTE | 2019-02-20 06:40 | NUR ---
SHIFT SUMMARY PATIENT ALERT AND ORIENTED. ON ROOM AIR. PATIENT USES URINAL INDEPENDENTLY AND CALLS STAFF TO EMPTY IT. PATIENT IS APPROPRIATE WHEN TALKING TO STAFF. PATIENT SLEPT WELL THROUGHOUT THE NIGHT. NO NEW ACUTE CHANGES. VITALS STABLE.
--- NOTE | 2019-02-20 18:07 | NUR ---
SHIFT SUMMARY PT AXO, COOPERATIVE WITH CARE. VSS THOUGH PT HYPERTENSIVE AT 1541 WITH BP OF 168/90, NOT WITHIN PARAMETERS TO GIVE PRN MEDICATION AT THIS TIME. NURSE WILL CONTINUE TO MONITOR. NO ACUTE CHANGES THIS SHIFT. PT UP TO WHEELCHAIR X1 THIS SHIFT. PT COMPLAINS OF CHRONIC PAIN IN R. FOOT, MEDICATED PER EMAR. BED IN LOW POSITION, CALL LIGHT WITHIN REACH.
--- NOTE | 2019-02-21 06:11 | NUR ---
SHIFT SUMMARY PATIENT IS ALERT AND ORIENTED. SLEPT WELL THROUGHOUT THE NIGHT. PATIENT WAS UP IN THE CHAIR IN THE SILVA AT BEGINING OF SHIFT FOR ABOUT 30 MINUTES. NO OTHER CHANGES NOTED. VITALS STABLE.
--- NOTE | 2019-02-21 18:41 | NUR ---
NO ACUTE CHANGES NOTED THIS SHIFT, WILL CONTINUE TO MONITOR AND REPORT TO ONCOMING RN
--- NOTE | 2019-02-22 06:46 | NUR ---
02/22/19 0615 AWAKE AND SLEPT FOR FEW HOURS LAST NIGHT. VITALS STABLE. DISCOMFORT MANAGED WITH ROUTINE MEDS. UNEVENTFUL NIGHT.
--- NOTE | 2019-02-22 10:09 | NUR ---
AM MEDICATIONS PT REFUSING HIS AM MEDS, SAYS "THEY ARE MAKING ME FEEL WORSE" AND WANTS TO SPEAK WITH THE DR FIRST. WILL ATTEMPT AGAIN LATER THIS MORNING
--- NOTE | 2019-02-22 10:35 | NUR ---
AM MEDICATIONS PT STILL REFUSING TO TAKE AM MEDS UNTIL HE SPEAKS WITH HIS DR. DR GÓMEZ NOTIFIED
--- NOTE | 2019-02-22 17:32 | NUR ---
PT UP TO W/C AND SITTING OUT IN THE HALLWAY TODAY. WAS SHOWERED TODAY. PT HAS NOT TAKEN ANY MEDICATIONS TODAY, DR GÓMEZ AWARE. NO ACUTE CHANGES NOTED THIS SHIFT, WILL CONTINUE TO MONITOR AND REPORT TO ONCOMING RN
--- NOTE | 2019-02-23 02:48 | NUR ---
states that his heart dr did not proscribe the medications he is being given and therefore he will not be taking any medication, rn reviewed with him the medications proscribed and their intended application, continued to refuse, day staff had informed pcp, will inform charge nurse of continued refusal
--- NOTE | 2019-02-23 07:14 | NUR ---
was himself, bm in bed, refused medication but used urinal, and call light appropriatly, ate lots of icecream and jin lozanor given to day shift
--- NOTE | 2019-02-23 08:49 | NUR ---
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 PATIENT BP AND PULSE ELEVATED. AFTER DISCUSSING THIS WITH PATIENT HE AGREED TO TAKE HIS BP MEDICATIONS ONLY, REFUSED ALL OTHER MEDICATIONS. BP 185/111 PULSE 115 TEMP 99.7 [address] BURGOS NOTIFED.
--- NOTE | 2019-02-23 11:00 | NUR ---
LATE ENTRY PATIENT REFUSED TO LET RN DO ASSESSMENT THIS AM.
--- NOTE | 2019-02-23 12:46 | NUR ---
PATIENT DID NOT WANT TO EAT LUNCH THIS SHIFT.
--- NOTE | 2019-02-23 19:17 | NUR ---
SHIFT SUMMARY PATIENT A&O. C/O PAIN TO R FOOT BUT REFUSING SCHEDULED PAIN MEDICATIONS. DENIES ANY SOB OR NAUSEA. PATIENT TOOK BP THIS AM BUT REFUSED ALL OTHER MEDICATIONS. DR GÓMEZ AWARE. ELEVATED BP THIS SHIFT, MEDICATED X 1 AT END OF SHIFT WITH PRN HYDRALAZINE WHICH BROUGHT BP DOWN. UP TO WHEELCHAIR FOR MOST OF THE SHIFT. REPOSITIONS SELF IN THE BED. NO OTHER ACUTE CHANGES. BED ALARM IN PLACE. REPORT GIVEN TO MATHEMATICAL ENGINEERING TECHNICIAN RN.
--- NOTE | 2019-02-23 20:03 | NUR ---
ASSUMED CARE OF PATIENT: PT WAS UP IN HIS WC IN THE HALLWAY. ASSISTED HIM BACK TO HIS ROOM AND USED HOLLIS LIFT TO GET HIM BACK TO BED. REPOSITIONED UP IN BED AND TO THE RIGHT SIDE. TOOK HOLLIS LIFT OFF FROM UNDERNEATH HIM. GAVE HIM HIS CALL LIGHT AND HIS TRAY WITH SIDE TABLE. HE DENIED ANY OTHER ISSUES AT THIS TIME. PLEASE SEE ASSESSMENT NOTE FOR FURTHER INFORMATION. WILL CONITNUE TO MONITOR.
--- NOTE | 2019-02-23 20:27 | NUR ---
Pt alert resting in bed. Requested warm blankets. Approached pt from distance did not stand over bed and used non medical language. pt was polite and engaged. constant head rubbing and intense gaze. Review of symptoms, denies headaches or neck pain. States at times he has buzzing in ears no ringing. States he is used to it. No trouble swallowing minimal dyspnea. denies nausea, minimal appeteite. He did not eat any of his dinner staff states he just snacks. redness to right elbow looks like he has been rubbing it on bed. He states he has general arthritsis pain but his main pain is right knee and leg. states no aternatives work such as ice or topicals. He said gapipentin helps a little. His biggest stress is voiding. He states if he strains he looses bowel control and it upsets him. Careful conversation addressed him as sir. Acknowledged and paraphrased all his statments of stress back to him. His main issue is anexiety. He states he has started taking his blood pressure medications again. States he gets scared that their are so many and not right and may not be working. He [facility]. He is excited that he might soon have a place to live. Offered to have us come and review all his medications, offered art therapy and diversion for anexiety so he could choose. He states watching [employer] was his favorite diversion for anexiety. We talked briefly about some favorite episodes. Will see if I can get more volunteer time with pt for socialization. Will see if the rythmic rubbing and anexiety can be reduced. Will review with pt and physician. Will see if pt benefits from getting out of room more or if it makes him worse. Will see if he can go outside. He states he trusts his guardian and has a good relationship. Will review with staff his activity level. If he goes to local facility he may be high readmission risk. He feels safe here and abrupt change may trigger him. He may need to be medicated for transfer to tolerate the activity and stimulus. Would consider having PT do a persistant pain eval for something pt can do himself in bed for stiffness and joint pain. pt still on lovenox will review if still needed.
[2019-02-24 04:48] LABS: BASOPHILS ABSOLUTE AUTO 0.04 K/mm3 (0.00-0.23); BASOPHILS PERCENT AUTO 0 % (0-2); EOSINOPHILS ABSOLUTE AUTO 0.23 K/mm3 (0.00-0.68); EOSINOPHILS PERCENT AUTO 3 % (0-6); Hematocrit 39.1 % (37.0-53.0); Hemoglobin 12.8 g/dL (13.5-17.5); IMMATURE GRAN ABSOLUTE AUTO 0.06 K/mm3 (0.00-0.10); IMMATURE GRAN PERCENT AUTO 1 % (0-1); LYMPHOCYTES ABSOLUTE AUTO 2.62 K/mm3 (0.84-5.20); LYMPHOCYTES PERCENT AUTO 29 % (21-46); MONOCYTES ABSOLUTE AUTO 0.97 K/mm3 (0.16-1.47); MONOCYTES PERCENT AUTO 11 % (4-13); Mean Corpuscular HGB 29.6 pg (26.0-34.0); Mean Corpuscular HGB Conc 32.7 g/dL (31.5-36.5); Mean Corpuscular Volume 90 fL (80-100); NEUTROPHILS ABSOLUTE AUTO 5.01 K/mm3 (1.96-9.15); NEUTROPHILS PERCENT AUTO 56 % (41-73); Platelet Count 266 K/mm3 (150-400); RDW Coefficient Variation 13.6 % (11.7-14.2); RDW Standard Deviation 45.3 fL (35.1-46.3); Red Blood Cell Count 4.33 M/mm3 (4.30-5.90); White Blood Cell Count 8.93 K/mm3 (4.00-11.30)
[2019-02-24 05:06] LABS: Albumin, Blood 3.2 g/dL (3.4-5.0); Anion Gap 9 mmol/L (6-16); Blood Urea Nitrogen 17 mg/dL (8-24); CO2, Blood 28 mmol/L (21-32); Calcium, Blood 9.8 mg/dL (8.5-10.1); Chloride, Blood 101 mmol/L (98-108); Creatinine, Blood 1.21 mg/dL (0.60-1.20); Glomerular Filtration Rate >60 (60-); Glucose, Blood 131 mg/dL (70-99); Phosphorus, Blood 4.7 mg/dL (2.5-4.9); Sodium, Blood 138 mmol/L (136-145)
--- NOTE | 2019-02-24 06:06 | NUR ---
SHIFT SUMMARY: LILLIE HAD A VERY UNEVENTFUL EVENING. HE TOOK HIS MEDS AFTER GETTING BACK INTO BED AND SLEPT THROUGHOUT THE NIGHT. HE WOKE UP JUST FOR VITALS AND CHECKS. NO OTHER CONCERNS WERE NOTED. WILL REPORT TO ONCOMING SHIFT.
--- NOTE | 2019-02-24 17:29 | NUR ---
SHIFT SUMMARY THE PATIENT PRESENTED THIS SHIFT WITH VITALS WNL, A&O X3 AND WITH CLEAR LUNG SOUNDS. THE PATIENT SLEPT MOST OF THE SHIFT, BEING WOKEN UP FOR HIS MEDICATIONS. THE PATIENT HAS BEEN IN GOOD HUMOR ALL SHIFT. THE PATIENT PATIENT HAD VISITORS FORM [facility], THE PATIENT WAS ASLEEP AND THEY STATED THAT THEY WILL RETURN. WILL CONTINUE TO MONITOR.
--- NOTE | 2019-02-25 01:35 | NUR ---
LATE ENTRY: ASSUMED CARE OF THE PATIENT AT 1900, ASSESSMENT COMPLETED AT 1930. HE WAS EASILY ARROUSED, AND ABLE TO ANSWER ALL QUESTIONS OR CONCERNS. STATES HE WANTS TO SLEEP TONIGHT. DENIED ANY NEW CHANGES. WILL CONTINUE TO MONITOR.
--- NOTE | 2019-02-25 05:52 | NUR ---
SHIFT SUMMARY: PT SLEPT THROUGHOUT THE NIGHT WITH ONLY ONE TIME HE WAS AWAKE AND ASKED FOR SNACK THEN FELL BACK TO SLEEP. HE DID NOT COMPAIN OF ANY OTHER CONCERNS WHEN AWAKE. MEDS GIVEN PER EMAR. NO ACUTE CHANGES WERE NOTED, WILL REPORT TO ONCOMING SHIFT.
--- NOTE | 2019-02-25 16:44 | NUR ---
SHIFT SUMMARY THE PATIENT PRESENTED THIS MORNING WITH VITALS WNL, CLEAR LUNG SOUNDS AND A&O X3. THE PATIENT STAYED IN HIS BED UNTIL 1600 AND THE REQUESTED TO BE PLACED IN HIS WHEEL CHAIR. THE PATIENT IS UP AT THIS TIME VISITING IN THE SILVA, WILL CONTINUE TO MONITOR.
--- NOTE | 2019-02-26 01:35 | NUR ---
PATIENT YELLING IN HIS ROOM. PULLED FOUR BLANKETS OFF AND ONTO THE FLOOR. PATIENT FELL BACK TO SLEEP. WILL CONTINUE TO MONITOR.
--- NOTE | 2019-02-26 03:19 | NUR ---
SHIFT SUMMARY PATIENT HAD NO ACUTE CHANGES OBSERVED THIS SHIFT. AXOX 3 AND BEDFAST. TAKES MEDICATION WHOLE WITH ICE CREAM. VSS/AFEBRILE. DENIES SOB AND N/V. SCHEDULE PAIN MEDICATION FOR RIGHT FOOT PAIN. HAD ONE YELLING EVENT AND THREW FOUR BLANKETS OFF BED BEFORE FALLING BACK TO SLEEP. USES URINAL AT BEDSIDE. CALL LIGHT IN REACH. BED IN LOWEST POSITION. WILL CONTINUE TO MONITOR UNTIL DAY SHIFT NURSE ASSUMES CARE.
[2019-02-26 05:17] LABS: Albumin, Blood 3.4 g/dL (3.4-5.0); Anion Gap 6 mmol/L (6-16); Blood Urea Nitrogen 30 mg/dL (8-24); Bun/Creatinine Ratio 25.6 (12.0-20.0); CO2, Blood 29 mmol/L (21-32); Calcium, Blood 9.4 mg/dL (8.5-10.1); Chloride, Blood 98 mmol/L (98-108); Creatinine, Blood 1.17 mg/dL (0.60-1.20); Glomerular Filtration Rate >60 (60-); Glucose, Blood 109 mg/dL (70-99); Potassium, Blood 4.2 mmol/L (3.5-5.5); Sodium, Blood 133 mmol/L (136-145); Uric Acid, Blood 8.5 mg/dL (3.5-7.2)
--- NOTE | 2019-02-26 16:40 | NUR ---
NO CHANGES THIS SHIFT. SLEPT MOST OF THE DAY. NO BEHAVIORAL DISTURBANCES, WAS PLEASANT AND COOPERATIVE WITH STAFF.
--- NOTE | 2019-02-27 03:33 | NUR ---
SHIFT SUMMARY PATIENT HAD NO ACUTE CHANGES OBSERVED THIS SHIFT. AXOX 3 AND BEDFAST. PATIENT PLEASANT WITH STAFF. COMPLETE BED CHANGE X ONE. VSS/AFEBRILE. WATCHES TV T/O FIRST PART OF SHIFT. NO IV ACCESS. SCHEDULE PAIN MEDICATION. CALL LIGHT IN REACH. BED IN LOWEST POSITION. WILL CONTINUE TO MONITOR UNTIL DAY SHIFT NURSE ASSUMES CARE.
--- NOTE | 2019-02-27 15:27 | NUR ---
PATIENT HAS BEEN PLEASANT AND COOPERATIVE WITH STAFF. NO DISTURBANCES THIS SHIFT AND PT HAS BEEN POLITE AND THANKFUL TO STAFF. NO ACUTE CHANGES NOTED TO PATIENT.
--- NOTE | 2019-02-28 04:06 | NUR ---
SHIFT SUMMARY PATIENT HAD NO ACUTE CHANGES OBSERVED THIS SHIFT. AXOX 3 AND BEDFAST W/C BOUND. TAKES MEDICATION WHOLE WITH ICE CREAM. NO IV ACCESS. TV ON MOST OF THE SHIFT. PATIENT IN W/C IN HALLWAY AT START OF SHIFT. COOPERATIVE WITH CARE. LIFT TO GET BACK INTO BED. SCHEDULE PAIN MEDICATION. CALL LIGHT IN REACH. BED IN LOWEST POSITION. WILL CONTINUE TO MONITOR UNTIL DAY SHIFT NURSE ASSUMES CARE.
--- NOTE | 2019-02-28 15:49 | NUR ---
summary PT CONTINUES TO AWAIT PLACEMENT, SOCSJATINDER GOEL STATE NO NEW OPTIONS @ THIS TIME. PT STATE HOPEFUL FOR PLACEMENT SOON. HE HAS BEEN GENERALLY PLEASANT, COOPERATIVE T/O DAY, POLITE. NO BEHAVIORAL OUTBURSTS/ISSUES. HE STATE CONCERNS WITH FOOD OPTIONS, REQUEST DIET CHANGE BACK TO REGULAR, CERTIFIED DIETARY MANAGER UP TO SEE HIM ATTEMPT TO SATISFY CONCERNS. HE STATE CONTINUING R FOOT/ANKLE PAIN, STATE UNABLE TO BR WT. DR LUNA REASSESS SITE, STATE NO IMPROVEMENT WITH PREDNISONE, D/C'D. PT HAS BEEN UP IN W/C VIA LIFT MOST OF DAY. LRG BM TODAY. VSS.
--- NOTE | 2019-03-01 05:35 | NUR ---
SHIFT SUMMARY PT AWAKE MOST OF THE NIGHT SITTING UP IN W/C IN HALLWAY, SLEPT VERY LITTLE. NO ACUTE CHANGES NOTED, WILL CONTINUE TO MONITOR.
--- NOTE | 2019-03-01 17:16 | NUR ---
SUMMARY PT SLEPT LATE THIS AM, STATE STAYED UP LATE LAST NITE. THIS AFTERNOON HE GOT UP TO W/C VIA LIFT & HAS BEEN UP SINCE, ABLE TO WHEEL HIMSELF UP & DOWN SILVA & IN/OUT OF ROOM. PLEASANT/COOPERATIVE AFFECT TODAY. NO DIET COMPLAINTS. HE CONTINUES TO AWAIT PLACEMENT, STATES FRUSTRATION R/T CONTINUING HOSP STAY. THIS AM BP ELEVATED 183/97, PRN HYDRALAZINE GIVEN WITH AM MEDS, THIS AFTERNOON BP 133/78. STATE CONTINUING PAIN R FOOT HOWEVER HE HAS BEEN PERFORMING ROM IN ATTEMPT TO ALEIVE.
--- NOTE | 2019-03-02 06:00 | NUR ---
SHIFT SUMMARY PT UP IN CHAIR FOR SHORT PERIOD AND THEN TO BED. SLEPT WELL MOST OF THE NIGHT. NO ACUTE CHANGES NOTED, WILL CONTINUE TO MONITOR.
--- NOTE | 2019-03-02 14:24 | NUR ---
supportive visit with patient. Brief symptom review much more interactive today and hopefull of placement.
--- NOTE | 2019-03-02 19:38 | NUR ---
SHIFT SUMMARY: NO ACUTE CHANGES TO REPORT THIS SHIFT. PT A&O; IRRITABLE; COOPERATIVE WITH CARE. PT W/C BOUND AT BASELINE; LIFT PATIENT TO WHEELCHAIR. MEDICATED FOR PAIN PER EMAR. AWAITING PLACEMENT. REPORT GIVEN TO ONCOMING RN.
--- NOTE | 2019-03-03 07:27 | NUR ---
NOC SHIFT SUMMARY NO ACUTE CHANGES THIS NIGHT. VSS. PT IS IRRITABLE BUT MOSTLY COOPERATIVE WITH CARE. LIFT FROM WHEELCHAIR TO BED WHERE HE REMAINED AND SLEPT THROUGH THE NIGHT. TALKS TO HIMSELF. APPEARS IN NO ACUTE DISTRESS. REPORT TO ONCOMING RN.
--- NOTE | 2019-03-03 17:05 | NUR ---
NO ACUTE CHANGES. PATIENT REMAINS FRIENDLY AND COOPERATIVE WITH STAFF. ASKED THIS NURSE TO CALL BOTH HIS CAREGIVER AND POA TO BRING HIM KF FOR DINNER. THIS NURSE DID CALL BOTH AND LEFT MESSAGES.
--- NOTE | 2019-03-04 07:31 | NUR ---
NO SHIFT SUMMARY NOT ACUTE CHANGES THIS SHIFT. PT HAS BEEN PLEASANT AND COOPERATIVE WITH CARE. FRIENDLY TO STAFF. HAD VISITORS THIS EVENING AND SPOKE WITH THEM FOR SOME TIME. VSS. APPEARS IN NO ACUTE DISTRESS. REPORT TO ONCOMING RN.
--- NOTE | 2019-03-04 18:14 | NUR ---
NO ACUTE CHANGES TO PATIENT. HE HAS BEEN COOPERATIVE AND PLEASANT ALL SHIFT.
--- NOTE | 2019-03-05 17:33 | NUR ---
SHIFT SUMMARY NO ACUTE CHANGES. PATIENT UP IN WHEELCHAIR AND SITTING IN HALLWAY THIS MORNING. PATIENT PLEASANT AND COMPLIANT WITH CARE. MEDICATED FOR PAIN SCHEDULED IN EMAR. PATIENT TAKEN FOR WALK AROUND FLOOR IN WHEELCHAIR. CALL LIGHT IN REACH, WILL CONTINUE TO MONITOR.
--- NOTE | 2019-03-06 17:35 | NUR ---
SHIFT SUMMARY NO ACUTE CHANGES. PATIENT UP IN WHEELCHAIR THIS AFTERNOON. PATIENT PLEASANT AND COMPLIANT WITH CARE. PATIETN DENIES NAUSEA AND SHORTNESS OF BREATH. MEDICATED SCHEDULED FOR PAIN. CALL LIGHT IN REACH, WILL CONTINUE TO MONITOR.
--- NOTE | 2019-03-07 07:22 | NUR ---
NOTHING NEW TO REPORT
--- NOTE | 2019-03-07 17:03 | NUR ---
SHIFT SUMMARY NO ACUTE CHANGES. PATIENT NAPPED MOST OF DAY AND DID NOT GET UP IN WHEELCHAIR. PATIENT MEDICATED SCHEDULED FOR PAIN. DENIES NAUSEA AND SHORTNESS OF BREATH. CALL LIGHT IN REACH, WILL CONTINUE TO MONITOR.
--- NOTE | 2019-03-08 04:33 | NUR ---
SHIFT SUMMARY A/O, ABLE TO MAKE NEEDS KNOWN. COOPERATIVE WITH CARE, BUT HAS MULTIPLE REQUESTIONS. C/O PAIN/DISCOMFORT TO R FOOT/KNEE; MEDICATED PER EMAR. REQUESTED TO GET UP INTO W/C, BUT AFTER RECIEVING MEDICATIONS STATED THAT HE WOULD JUST TRY AND GO TO SLEEP. APPEARED TO REST MUCH OF SHIFT. NO ACUTE CHANGES OVERNIGHT. BED REMAINED IN LOWEST POSITION. CALL LIGHT AND BELONGINGS WITHIN REACH. WCTM. REPORT TO ONCOMING RN.
--- NOTE | 2019-03-08 18:22 | NUR ---
SHIFT SUMMARY- PT AXO X4. C/O R FOOT PAIN. MEDS GIVEN PER EMAR. DENIES SOB. RESP E/U ON RA. DENIES N/V. PT UP IN WHEELCHAIR THIS PM. NO OTHER SIGNIFICANT CHANGES THIS SHIFT.
--- NOTE | 2019-03-09 03:12 | NUR ---
SHIFT SUMMARY PT REFUSED ALL OF HIS NIGHT MEDICATIONS EXCEPT FOR THE COZAAR DESPITE REPEATED RN EDUCATION. PT DISPLAYED ATTENTION SEEKING BEHAVIOR MOST OF THE NIGHT. PT DID COMPLAIN OF HIS CHRONIC RIGHT FOOT PAIN, BUT REFUSED ANY ANALGESICS. PT ENCOURAGED TO SHIFT POSITION. VSS. BED IN LOW POSITION, CALL KULKARNI IN REACH, BED ALARM ACTIVATED. WILL CONTINUE TO MONITOR.
--- NOTE | 2019-03-09 16:21 | NUR ---
SHIFT SUMMARY- PT REPORTS 8/10 PAIN TO RIGHT ANKLE/KNEE BUT REFUSED ANY PAIN MEDICATIONS THIS AM, PT REPORTS HE IS ONLY WANTING HEART MEDICATIONS. EXPLAINED IMPORTANCE OF PSYCH MEDS TO HIM, SEROQUEL WAS TAKEN THIS AM. LS CLEAR/ DIMINISHED IN THE BASES, ON RA. PT UP TO W/C USING LIFT FOR APROX 10 MIN BEFORE GETTING BACK INTO BED. INCONT BM TODAY, PT USES URINAL INDEP. PT TO D/C THURSDAY BEFORE NOON TO [facility]. LOW GRADE TEMP TODAY. NO OTHER ACUTE CHANGES THIS SHIFT.
--- NOTE | 2019-03-10 05:46 | NUR ---
SHIFT SUMMARY: 68 Y/O MORBID OBESE MALE RESTED COMFORTABLY ALL SHIFT. PTS TOOK ALL PSYCHIATRIC MEDS WITHOUT ISSUE LAST NIGHT. PTS TENTATIVELY SCHEDULED TO BED DISCHARGED ON 03/11/19 TO HOME IN [place] WITH DRUM ATTENDANT AT PATIENTS SIDE LAST PM FOR INTERVIEW. PTS DENIES PAIN OR NAUSEA. PTS BEHAVIOR ALL APPROPRIATE. PTS BED LOW POSITION, CALL LIGHT AT SIDE. PT ALERT AND ORIENTED X 4.
--- NOTE | 2019-03-10 17:19 | NUR ---
SHIFT SUMMARY- PT PLEASANT AND COOPERATIVE T/O THE DAY. TOOK MEDICATIONS APROPRIATELY TODAY. PT TO D/C TO [facility] TOMORROW AM. DME HAS BEEN DELIVERED TO [facility] AND W/C IN PT ROOM. NO OTHER ACUTE CHANGES THIS SHIFT.
[2019-03-10] MEDS ORDERED: BENZ2 PO (18:32)
[2019-03-10] MEDS ORDERED: AMLO5 PO (18:32)
[2019-03-10] MEDS ORDERED: ASPERCREME1 EACH TOP (18:33)
[2019-03-10] MEDS ORDERED: LOSARTAN POTAS100 MG PO (18:33)
[2019-03-10] MEDS ORDERED: FURO40 PO (18:33)
[2019-03-10] MEDS ORDERED: Micro-K10 MEQ PO (18:34)
[2019-03-10] MEDS ORDERED: QUET200 PO (18:34)
[2019-03-10] MEDS ORDERED: PANT20 PO (18:34)
[2019-03-10] MEDS ORDERED: METO50ER PO (18:34)
[2019-03-10] MEDS ORDERED: TRAM50 PO (18:35)
[2019-03-10] MEDS ORDERED: Seroquel50 MG PO (18:35)
--- NOTE | 2019-03-11 04:40 | NUR ---
SHIFT SUMMARY: 68 Y/O OBESE MALE RESTED COMFORTABLY ALL SHIFT. PT TOOK ALL NIGHT MEDICATIONS WITHOUT ISSUE. PT PLEASANT AND COOPERATIVE WITH STAFF. PT IS TENTATIVELY TO BE DISCHARGED TODAY TO [facility] IN [place], [place]. PT VOICED EXCITMENT AND ANTICPATION OF DEPARTING HOSPITAL AFTER BEING HERE SINCE 12/02/18. PT HAS NEW WHEELCHAIR NOTED AT BEDSIDE. PTS BED LOW POSITIION, CALL LIGHT AT SIDE.
--- NOTE | 2019-03-11 11:20 | NUR ---
DISCHARGE NOTE- PT DISCHARGED TO [facility]. GUARDIAN PRESENT FOR DISCHARGE TEACHING AND SIGNED THE DISCHARGE PAPERS. PT WAS TAKEN BY W/C VAN TO [facility] IN HIS OWN W/C. CAREGIVER AND GUARDIAN TOOK ALL PERSONAL BELONGINGS FROM THE ROOM.
== END 2019-03-11 11:02 | disposition home or self-care (01) | DRG 640 ==
LOC: ER 20:55 → ICUW 12-02 00:42 → MEDS 12-02 00:42 → ICUW 12-02 01:32 → MEDS 12-03 13:19 → ENPENDDIS 03-11 07:36 → MEDS 03-11 11:02
PROVIDERS: Emergency Medicine; Internal Medicine; Internal Medicine Nephrology; Nurse Practitioner Acute Care; ADMIT Internal Medicine
DX: E87.1 Hypo-osmolality and hyponatremia (principal); I50.33 Acute on chronic diastolic (congestive) heart failure; I13.0 Hypertensive heart and chronic kidney disease with heart failure and stage 1 through stage 4 chronic kidney disease, or unspecified chronic kidney disease; Z68.42 Body mass index [BMI] 45.0-49.9, adult; M62.82 Rhabdomyolysis; E66.2 Morbid (severe) obesity with alveolar hypoventilation; F03.91 Unspecified dementia, unspecified severity, with behavioral disturbance; L03.116 Cellulitis of left lower limb; Z87.891 Personal history of nicotine dependence; F25.0 Schizoaffective disorder, bipolar type; F43.10 Post-traumatic stress disorder, unspecified; Z74.01 Bed confinement status; Z59.0 Homelessness; E78.00 Pure hypercholesterolemia, unspecified; E86.1 Hypovolemia; N18.2 Chronic kidney disease, stage 2 (mild); R80.9 Proteinuria, unspecified; J44.9 Chronic obstructive pulmonary disease, unspecified; L30.4 Erythema intertrigo; F60.9 Personality disorder, unspecified; R09.02 Hypoxemia; L30.9 Dermatitis, unspecified
CPT/HCPCS: 36415; 51702; 71045; 73610; 80048; 80053; 80061; 80069; 80074; 81001; 81050; 82533; 82550; 82784; 82803; 83520; 83605; 83735; 83880; 83930; 83935; 84156; 84165; 84295; 84300; 84439; 84443; 84481; 84484; 84550; 85014; 85018; 85025; 85027; 85610; 85651; 86038; 86256; 86334; 87040; 87804; 93005; 93010; 93306; 93971; 96365; 96375; 97163; 97166; 97530; 99285-25; A9270; C9113; J0696; J1200; J1630; J1650; J2060; J2250; J7030; J7512

== ENCOUNTER 2019-04-21 22:39 | Emergency (ER) | payer MEDICARE ==
[~2019-04-21] VITALS: Ht 180.3 cm; Wt 230.0 kg
[~2019-04-21 22:39] MED LIST: AMLO5 PO; ARIP10 PO; ASPERCREME1 EACH TOP; Aspirin EC81 MG PO; BENZ2 PO; BUDE6HFA INH; Bactrim Ds Tab1 EACH PO; Calcium 250+D1 EACH PO; DOCU100 PO; DOXA4 PO; FURO40 PO; Flonase 0.05% N16 GM; GABA300 PO; Haldol 5 mg Tab5 MG PO; ISODIN20 PO; Isosorbide Mono60 MG PO; LISI20 PO; LOSARTAN POTAS100 MG PO; Loratadine10 MG PO; MELA3 PO; METO50ER PO; Micro-K10 MEQ PO; PANT20 PO; QUET200 PO; Seroquel50 MG PO; TRAM50 PO; Thera-Gesic Ana85 GM TOP; Zanaflex4 M1 PO; Zocor20 MG PO
[2019-04-21] MEDS ORDERED: SALONPAS PATCH1 EACH TOP (23:26)
[2019-04-21 23:39] LABS: BASOPHILS ABSOLUTE AUTO 0.03 K/mm3 (0.00-0.23); BASOPHILS PERCENT AUTO 0 % (0-2); EOSINOPHILS ABSOLUTE AUTO 0.28 K/mm3 (0.00-0.68); EOSINOPHILS PERCENT AUTO 3 % (0-6); Hematocrit 40.3 % (37.0-53.0); Hemoglobin 13.5 g/dL (13.5-17.5); IMMATURE GRAN ABSOLUTE AUTO 0.07 K/mm3 (0.00-0.10); IMMATURE GRAN PERCENT AUTO 1 % (0-1); LYMPHOCYTES ABSOLUTE AUTO 2.46 K/mm3 (0.84-5.20); LYMPHOCYTES PERCENT AUTO 24 % (21-46); MONOCYTES ABSOLUTE AUTO 0.73 K/mm3 (0.16-1.47); MONOCYTES PERCENT AUTO 7 % (4-13); Mean Corpuscular HGB 29.5 pg (26.0-34.0); Mean Corpuscular HGB Conc 33.5 g/dL (31.5-36.5); Mean Corpuscular Volume 88 fL (80-100); Mean Platelet Volume 8.9 fL (9.1-12.4); NEUTROPHILS ABSOLUTE AUTO 6.88 K/mm3 (1.96-9.15); NEUTROPHILS PERCENT AUTO 66 % (41-73); Platelet Count 337 K/mm3 (150-400); RDW Coefficient Variation 12.7 % (11.7-14.2); RDW Standard Deviation 41.1 fL (35.1-46.3); Red Blood Cell Count 4.57 M/mm3 (4.30-5.90); White Blood Cell Count 10.45 K/mm3 (4.00-11.30)
[2019-04-21 23:57] LABS: Alanine Aminotransfer (ALT/SGP 16 U/L (12-78); Albumin, Blood 3.1 g/dL (3.4-5.0); Albumin/Globulin Ratio 0.8 (0.8-1.8); Alk Phos 95 U/L (50-136); Anion Gap 9 mmol/L (6-16); Aspartate Aminotrans (AST/SGOT 12 U/L (12-37); Bilirubin, Total 0.7 mg/dL (0.1-1.0); Blood Urea Nitrogen 12 mg/dL (8-24); Bun/Creatinine Ratio 13.3 (12.0-20.0); CO2, Blood 27 mmol/L (21-32); Calcium, Blood 8.9 mg/dL (8.5-10.1); Chloride, Blood 98 mmol/L (98-108); Globulin, Blood 3.7 g/dL (2.2-4.0); Glomerular Filtration Rate >60 (60-); Glucose, Blood 132 mg/dL (70-99); Potassium, Blood 3.8 mmol/L (3.5-5.5); Sodium, Blood 134 mmol/L (136-145); Total Protein, Blood 6.8 g/dL (6.4-8.2)
== END 2019-04-22 01:00 | disposition home or self-care (01) ==
LOC: ER 22:39
PROVIDERS: Emergency Medicine
DX: R53.1 Weakness (principal); R53.83 Other fatigue; I10 Essential (primary) hypertension; F25.9 Schizoaffective disorder, unspecified; F31.9 Bipolar disorder, unspecified; F43.10 Post-traumatic stress disorder, unspecified; K21.9 Gastro-esophageal reflux disease without esophagitis; E87.6 Hypokalemia; Z87.891 Personal history of nicotine dependence; Z88.5 Allergy status to narcotic agent; Z88.8 Allergy status to other drugs, medicaments and biological substances; Z91.018 Allergy to other foods; Z79.899 Other long term (current) drug therapy; Z79.891 Long term (current) use of opiate analgesic
CPT/HCPCS: 36415; 80053; 85025; 93005; 93010; 99284-25

== ENCOUNTER 2019-06-04 10:29 | Emergency (ER) | payer OTHER, MEDICARE ==
[~2019-06-04] VITALS: Ht 165.1 cm; Wt 226.8 kg
[~2019-06-04 10:29] MED LIST changes: +SALONPAS PATCH1 EACH TOP
[2019-06-04 11:24] LABS: BASOPHILS ABSOLUTE AUTO 0.02 K/mm3 (0.00-0.23); BASOPHILS PERCENT AUTO 0 % (0-2); EOSINOPHILS ABSOLUTE AUTO 0.07 K/mm3 (0.00-0.68); EOSINOPHILS PERCENT AUTO 1 % (0-6); Hematocrit 40.1 % (37.0-53.0); IMMATURE GRAN ABSOLUTE AUTO 0.08 K/mm3 (0.00-0.10); IMMATURE GRAN PERCENT AUTO 1 % (0-1); LYMPHOCYTES PERCENT AUTO 9 % (21-46); MONOCYTES ABSOLUTE AUTO 1.07 K/mm3 (0.16-1.47); MONOCYTES PERCENT AUTO 8 % (4-13); Mean Corpuscular HGB Conc 34.9 g/dL (31.5-36.5); Mean Corpuscular Volume 83 fL (80-100); Mean Platelet Volume 9.2 fL (9.1-12.4); NEUTROPHILS ABSOLUTE AUTO 11.39 K/mm3 (1.96-9.15); NEUTROPHILS PERCENT AUTO 82 % (41-73); Platelet Count 383 K/mm3 (150-400); RDW Coefficient Variation 13.4 % (11.7-14.2); RDW Standard Deviation 40.4 fL (35.1-46.3); Red Blood Cell Count 4.82 M/mm3 (4.30-5.90); White Blood Cell Count 13.83 K/mm3 (4.00-11.30)
[2019-06-04 11:41] LABS: Alanine Aminotransfer (ALT/SGP 18 U/L (12-78); Albumin, Blood 3.6 g/dL (3.4-5.0); Albumin/Globulin Ratio 0.9 (0.8-1.8); Alk Phos 102 U/L (50-136); Anion Gap 6 mmol/L (6-16); Aspartate Aminotrans (AST/SGOT 17 U/L (12-37); Bilirubin, Total 0.7 mg/dL (0.1-1.0); Blood Urea Nitrogen 6 mg/dL (8-24); Bun/Creatinine Ratio 12.6 (12.0-20.0); CO2, Blood 27 mmol/L (21-32); Calcium, Blood 9.3 mg/dL (8.5-10.1); Chloride, Blood 96 mmol/L (98-108); Creatinine, Blood 0.48 mg/dL (0.60-1.20); Globulin, Blood 3.9 g/dL (2.2-4.0); Glomerular Filtration Rate >60 (60-); Glucose, Blood 133 mg/dL (70-99); Potassium, Blood 3.5 mmol/L (3.5-5.5); Sodium, Blood 129 mmol/L (136-145); Total Protein, Blood 7.5 g/dL (6.4-8.2); Troponin I <0.015 ng/mL (0.000-0.040)
[2019-06-04] MEDS ORDERED: Zofran8 MG PO (12:47)
[2019-06-04] MEDS ORDERED: Protonix40 MG PO (12:47)
[2019-06-04] MEDS ORDERED: SUCR1 PO (12:47)
== END 2019-06-04 13:45 | disposition home or self-care (01) ==
LOC: ER 10:29
PROVIDERS: Internal Medicine
DX: K30 Functional dyspepsia (principal); F31.9 Bipolar disorder, unspecified; F25.9 Schizoaffective disorder, unspecified; F43.10 Post-traumatic stress disorder, unspecified; K21.9 Gastro-esophageal reflux disease without esophagitis; I11.0 Hypertensive heart disease with heart failure; I50.32 Chronic diastolic (congestive) heart failure; Z87.891 Personal history of nicotine dependence; Z88.5 Allergy status to narcotic agent; Z88.8 Allergy status to other drugs, medicaments and biological substances; Z91.018 Allergy to other foods; Z79.899 Other long term (current) drug therapy; Z79.891 Long term (current) use of opiate analgesic
CPT/HCPCS: 36415; 80053; 83880; 84484; 85025; 93005; 93010; 96374; 96375; 99285-25; C9113; J2405

== ENCOUNTER → 2019-08-15 | Outpatient (CLI) | payer MEDICARE ==
[~2019-08-15] MED LIST changes: +Protonix40 MG PO; +SUCR1 PO; +Zofran8 MG PO
[2019-08-16 09:53] LABS: Source, Urine Clean Catch
[2019-08-16 10:24] LABS: Bilirubin, Urine Neg (Neg); Blood, Urine Neg (Neg); Glucose Qualitative, Urine Neg (Neg); Ketones, Urine Neg (Neg); Leukocyte Esterase, Urine Neg (Neg); Nitrite, Urine Neg (Neg); Protein, Urine Neg (Neg); Specific Gravity, Urine 1.005 (1.003-1.022); Urobilinogen, Urine NORM (Normal)
[2019-08-16 10:27] LABS: Appearance, Urine Clear (Clear); Color, Urine Pale Yellow (P-Yellow)
== END ==
LOC: LAB SHORT 16:20 → LAB 16:20
PROVIDERS: Nurse Practitioner Family
DX: N39.0 Urinary tract infection, site not specified (principal)
CPT/HCPCS: 81003

== ENCOUNTER → 2022-01-02 | Outpatient (CLI) | payer MEDICARE ==
[~2022-01-02] MED LIST changes: +CEFD300 PO
[2022-01-02 15:25] LABS: Appearance, Urine Hazy (Clear); Bilirubin, Urine Neg (Neg); Blood, Urine 5+ (Neg); Glucose Qualitative, Urine Neg (Neg); Ketones, Urine Neg (Neg); Leukocyte Esterase, Urine 3+ (Neg); Nitrite, Urine Neg (Neg); Protein, Urine 3+ (Neg); Urobilinogen, Urine NORM (Normal)
[2022-01-02 15:39] LABS: Color, Urine Pale Yellow (P-Yellow)
[2022-01-02 15:42] LABS: Squamous Epithelial Cells Few /hpf (Few)
[2022-01-02 15:43] LABS: Amorphous Heavy (0-Heavy); Bacteria Mod /hpf; Mucus Light (0-Heavy)
== END | disposition home or self-care (01) ==
LOC: LAB SHORT 12:11
PROVIDERS: Nurse Practitioner Family
DX: N39.0 Urinary tract infection, site not specified (principal)
CPT/HCPCS: 81001; 87086

== ENCOUNTER 2022-02-01 17:04 | Inpatient (IN) | payer OTHER ==
[~2022-02-01] VITALS: Ht 185.4 cm; Wt 181.4 kg
[~2022-02-01 17:04] MED LIST changes: -QUET200 PO; +QUETIAPINE FUM400 M2 PO; +TIZA4 PO; -Zanaflex4 M1 PO
[2022-02-01 17:38] LABS: BASOPHILS ABSOLUTE AUTO 0.05 K/mm3 (0.00-0.23); BASOPHILS PERCENT AUTO 0 % (0-2); EOSINOPHILS ABSOLUTE AUTO 0.02 K/mm3 (0.00-0.68); EOSINOPHILS PERCENT AUTO 0 % (0-6); Hematocrit 34.6 % (37.0-53.0); Hemoglobin 11.1 g/dL (13.5-17.5); IMMATURE GRAN ABSOLUTE AUTO 0.31 K/mm3 (0.00-0.10); IMMATURE GRAN PERCENT AUTO 2 % (0-1); LYMPHOCYTES ABSOLUTE AUTO 1.16 K/mm3 (0.84-5.20); LYMPHOCYTES PERCENT AUTO 6 % (21-46); MONOCYTES ABSOLUTE AUTO 1.52 K/mm3 (0.16-1.47); MONOCYTES PERCENT AUTO 8 % (4-13); Mean Corpuscular HGB 28.7 pg (26.0-34.0); Mean Corpuscular HGB Conc 32.1 g/dL (31.5-36.5); Mean Corpuscular Volume 89 fL (80-100); NEUTROPHILS ABSOLUTE AUTO 15.55 K/mm3 (1.96-9.15); NEUTROPHILS PERCENT AUTO 84 % (41-73); Platelet Count 261 K/mm3 (150-400); RDW Coefficient Variation 14.2 % (11.7-14.2); RDW Standard Deviation 46.3 fL (35.1-46.3); Red Blood Cell Count 3.87 M/mm3 (4.30-5.90); White Blood Cell Count 18.61 K/mm3 (4.00-11.30)
[2022-02-01 18:10] LABS: Alanine Aminotransfer (ALT/SGP 25 U/L (12-78); Albumin, Blood 2.3 g/dL (3.4-5.0); Albumin/Globulin Ratio 0.4 (0.8-1.8); Alk Phos 97 U/L (50-136); Anion Gap 7 mmol/L (6-16); Aspartate Aminotrans (AST/SGOT 37 U/L (12-37); Bilirubin, Total 0.7 mg/dL (0.1-1.0); Blood Urea Nitrogen 17 mg/dL (8-24); Bun/Creatinine Ratio 17.8 (12.0-20.0); CO2, Blood 31 mmol/L (21-32); Calcium, Blood 9.3 mg/dL (8.5-10.1); Chloride, Blood 93 mmol/L (98-108); Creatinine, Blood 0.96 mg/dL (0.60-1.20); Globulin, Blood 5.4 g/dL (2.2-4.0); Glomerular Filtration Rate 85 (60-); Glucose, Blood 148 mg/dL (70-99); Potassium, Blood 4.5 mmol/L (3.5-5.5); Sodium, Blood 131 mmol/L (136-145); Total Protein, Blood 7.7 g/dL (6.4-8.2)
[2022-02-01 18:32] LABS: Base Excess Venous 7.3 mmol/L; Bicarbonate Venous 29.6 mmol/L (24.0-30.0); PCO2 Venous 53.3 mmHg (38-42); PO2 Venous 37.7 mmHg (38-42); pH Blood Venous 7.39 (7.34-7.37)
[2022-02-01 18:57] LABS: Influenza A, PCR NEGATIVE (NEGATIVE); Influenza B, PCR NEGATIVE (NEGATIVE); Resp Syncytial Virus, PCR NEGATIVE (NEGATIVE); SARS-Cov-2 (COVID-19) PCR, MMC NEGATIVE (NEGATIVE)
[2022-02-01] MEDS ORDERED: BENZ2 PO (22:00)
[2022-02-01] MEDS ORDERED: DICLOFENAC SOD100 G1 TOP (22:01)
[2022-02-01] MEDS ORDERED: DOCU100 PO (22:02)
[2022-02-01] MEDS ORDERED: FOLI1 PO (22:02)
[2022-02-01] MEDS ORDERED: FERROUS GLUCON324 M7 PO (22:02)
[2022-02-01] MEDS ORDERED: B-121000 MC4 PO (22:10)
[2022-02-01] MEDS ORDERED: ASCO500 PO (22:10)
[2022-02-01] MEDS ORDERED: VITAMIN D31000 UNI1 PO (22:12)
[2022-02-01] MEDS ORDERED: ACET500 PO (22:12)
[2022-02-01] MEDS ORDERED: BENZ100A PO (22:13)
[2022-02-01] MEDS ORDERED: DULCOLAX400 MG/5 M PO (22:14)
[2022-02-01] MEDS ORDERED: BISA10S PR (22:15)
[2022-02-01] MEDS ORDERED: Fleet Enema132 ML PR (22:16)
[2022-02-01] MEDS ORDERED: HYDR10 PO (22:18)
[2022-02-01] MEDS ORDERED: HYDHCL25 PO (22:20)
[2022-02-01] MEDS ORDERED: LACT10SY PO ×2 (22:20→22:22)
[2022-02-01] MEDS ORDERED: LOPE2C PO (22:24)
[2022-02-01] MEDS ORDERED: [UNRECOGNIZED DRUG - OTHER] TOP (22:25)
[2022-02-01] MEDS ORDERED: NYSTATIN15 GM TOP (22:26)
[2022-02-01] MEDS ORDERED: NYSTOP15 GM TOP (22:27)
[2022-02-01] MEDS ORDERED: PAIN RELIEF1 EACH TOP (22:31)
[2022-02-01] MEDS ORDERED: TRAM50 PO (22:32)
[2022-02-01 23:06] LABS: Source, Urine Straight Cath
[2022-02-01 23:14] LABS: Bilirubin, Urine Neg (Neg); Blood, Urine 4+ (Neg); Glucose Qualitative, Urine Neg (Neg); Ketones, Urine 1+ (Neg); Leukocyte Esterase, Urine 3+ (Neg); Nitrite, Urine Neg (Neg); Protein, Urine 3+ (Neg); Urobilinogen, Urine 1+ (Normal)
[2022-02-01 23:18] LABS: Appearance, Urine Turbid (Clear); Color, Urine Yellow (P-Yellow)
[2022-02-01 23:22] LABS: Bacteria Many /hpf; Squamous Epithelial Cells Not Seen /hpf (Few); White Blood Cells, Urine TNTC /hpf (0-5)
[2022-02-02 05:50] LABS: BASOPHILS ABSOLUTE AUTO 0.04 K/mm3 (0.00-0.23); BASOPHILS PERCENT AUTO 0 % (0-2); EOSINOPHILS ABSOLUTE AUTO 0.05 K/mm3 (0.00-0.68); EOSINOPHILS PERCENT AUTO 0 % (0-6); Hematocrit 32.8 % (37.0-53.0); Hemoglobin 10.5 g/dL (13.5-17.5); IMMATURE GRAN ABSOLUTE AUTO 0.34 K/mm3 (0.00-0.10); IMMATURE GRAN PERCENT AUTO 2 % (0-1); LYMPHOCYTES ABSOLUTE AUTO 1.08 K/mm3 (0.84-5.20); LYMPHOCYTES PERCENT AUTO 7 % (21-46); MONOCYTES ABSOLUTE AUTO 1.18 K/mm3 (0.16-1.47); MONOCYTES PERCENT AUTO 7 % (4-13); Mean Corpuscular HGB 28.8 pg (26.0-34.0); Mean Corpuscular Volume 90 fL (80-100); Mean Platelet Volume 10.6 fL (9.1-12.4); NEUTROPHILS ABSOLUTE AUTO 13.94 K/mm3 (1.96-9.15); NEUTROPHILS PERCENT AUTO 84 % (41-73); Platelet Count 227 K/mm3 (150-400); RDW Coefficient Variation 14.1 % (11.7-14.2); RDW Standard Deviation 46.8 fL (35.1-46.3); Red Blood Cell Count 3.64 M/mm3 (4.30-5.90); White Blood Cell Count 16.63 K/mm3 (4.00-11.30)
--- NOTE | 2022-02-02 05:56 | NUR ---
SHIFT SUMMARY 71 YR M ADMITTED ON 02/01/22 FOR PNEUMONIA. PT WAS BROUGHT TO THE ED BY A CAREGIVER AT [facility] FOR [facility]NESS AND LETHARGY. IT WAS NOTED IN THE ER THAT THE PT HAD MAGGOTS AND FLIES ON HIS PENIS AND SCROTUM. HE IS A VERY LARGE MAN AND THEY WERE IN THE FOLDS OF HIS GROIN. UPON ARRIVAL TO THIS UNIT IT WAS NOTED AGAIN THAT THERE WERE STILL MAGGOTS PRESENT. THIS NURSE AND AN WET CLEANER MACHINE THOROUGHLY CLEANED THE AREA AND A ANTON CATHETER WS PLACED. A URINE SAMPLE WAS SENT TO THE LAB FOR ANALYSIS. THE URINE LOOKED LIKE BABY FORMULA. PT IS CURRENTLY SLEEPING. HE TOLERATED THE TRANSITION WELL BUT AT TIMES HE GETS QUITE GRUMPY AND CUSSES AT STAFF.
[2022-02-02 06:13] LABS: Bun/Creatinine Ratio 19.3 (12.0-20.0); Calcium, Blood 9.3 mg/dL (8.5-10.1); Creatinine, Blood 0.93 mg/dL (0.60-1.20); Potassium, Blood 3.4 mmol/L (3.5-5.5)
--- NOTE | 2022-02-02 19:27 | NUR ---
SHIFT SUMMARY: NO ACUTE EVENTS. C/O PAIN IN HIS "SPINE", DECLINED OFFERED TYLENOL. USING O2 @ 3 L/MIN NC BUT REMOVES IT OFTEN. A&O X 2-3; WAS ADMONISHED BY NURSING FOR BEING VERBALLY ABUSIVE TO STAFF. NO EVENTS ON TELEMETRY, SR-ST 95-102. ANTON DRAINING ADEQUATE URINE, INCONTINENT OF LARGE LOOSE BM. TOLERATING PO INTAKE. GAVE TELEPHONE UPDATES TO [facility] RN AND PT'S MPOA.
--- NOTE | 2022-02-03 04:08 | NUR ---
SHIFT SUMMARY 71 YR M ADMITTED ON 02/01/22 FOR WEAKNESS AND LETHARGY. FULL CODE. NO ACUTE CHANGES THIS SHIFT. PT WAS INCONTINENT OF A LARGE LOOSE BM. HE WAS COOPERATIVE W/ CARE AND WAS NOT RUDE OR CUSSING AT STAFF THIS SHIFT. HE C/O PAIN IN HIS BACK WHEN ROLLED TO EITHER SIDE, BUT MOSTLY TOLERATED IT WELL. ANTON IS DRAINING WELL. HE HAS SLEPT FOR MOST OF THIS SHIFT.
[2022-02-03 05:49] LABS: BASOPHILS ABSOLUTE AUTO 0.04 K/mm3 (0.00-0.23); BASOPHILS PERCENT AUTO 0 % (0-2); EOSINOPHILS ABSOLUTE AUTO 0.08 K/mm3 (0.00-0.68); EOSINOPHILS PERCENT AUTO 1 % (0-6); Hematocrit 34.4 % (37.0-53.0); IMMATURE GRAN PERCENT AUTO 4 % (0-1); LYMPHOCYTES PERCENT AUTO 9 % (21-46); MONOCYTES ABSOLUTE AUTO 1.01 K/mm3 (0.16-1.47); MONOCYTES PERCENT AUTO 8 % (4-13); Mean Corpuscular HGB 28.2 pg (26.0-34.0); Mean Corpuscular Volume 88 fL (80-100); Mean Platelet Volume 11.1 fL (9.1-12.4); NEUTROPHILS ABSOLUTE AUTO 10.14 K/mm3 (1.96-9.15); NEUTROPHILS PERCENT AUTO 78 % (41-73); Platelet Count 271 K/mm3 (150-400); RDW Coefficient Variation 13.5 % (11.7-14.2); White Blood Cell Count 12.97 K/mm3 (4.00-11.30)
[2022-02-03 06:29] LABS: Bun/Creatinine Ratio 16.4 (12.0-20.0); Calcium, Blood 9.5 mg/dL (8.5-10.1); Creatinine, Blood 0.61 mg/dL (0.60-1.20); Potassium, Blood 3.2 mmol/L (3.5-5.5)
--- NOTE | 2022-02-03 10:56 | NUR ---
DR LASSITER REQUESTED REMOVE O2. WATCH. DONE. CHECK AT 1045 AT 94%\
--- NOTE | 2022-02-03 17:30 | NUR ---
PT OFTEN DEMANDING TODAY. OFTEN WTH NO REAL CONCERNS NOTED. HE JUST ASKED FOR EVERYTHING ALTHOUGH COULD NOT TELL ME WHAT THAT MIGHT BE. STATES ONLY PAIN IS WHAT HE NORMALLY HAS. MEDICATED PER EMAR. NO NEW CONCERNS NOTED. BED IN LOW POSITION, CALL LIGHT IN REACH, BED ALARM ON
--- NOTE | 2022-02-04 04:29 | NUR ---
SHIFT SUMMARY ADMITTED FOR RIGHT SIDE PNEUMONIA/UTI. FULL CODE. IV ANTIB RX ARE SCHEDULED. HE WAS ADMITTED FROM [facility]. HE IS OBESE AND BEDRIDDEN. HE YELLS OUT FREQUENTLY AND DOES NOT USE HIS CALL BUTTON. HE IS CONFUSED. TELEMETRY: NSR @ [address] DIARRHEA REPORTED ON PREVIOUS SHIFT. 2 G LOW NA+ DIET. RA. VA PATIENT. HX OF SCHIZOPHRENIA, PTSD, BIPOLAR. LIFT PATIENT. 2-3 PERSON CHANGE. Q2 TURNS. SMALL TEAR ON LEFT BUTTOCK, WOUND ON PENIS AND LEFT THIGH. FRAGILE SKIN.
[2022-02-04 05:28] LABS: BASOPHILS ABSOLUTE AUTO 0.04 K/mm3 (0.00-0.23); BASOPHILS PERCENT AUTO 0 % (0-2); EOSINOPHILS ABSOLUTE AUTO 0.13 K/mm3 (0.00-0.68); EOSINOPHILS PERCENT AUTO 1 % (0-6); Hematocrit 36.2 % (37.0-53.0); IMMATURE GRAN ABSOLUTE AUTO 0.55 K/mm3 (0.00-0.10); IMMATURE GRAN PERCENT AUTO 5 % (0-1); LYMPHOCYTES ABSOLUTE AUTO 1.32 K/mm3 (0.84-5.20); LYMPHOCYTES PERCENT AUTO 12 % (21-46); MONOCYTES ABSOLUTE AUTO 0.95 K/mm3 (0.16-1.47); MONOCYTES PERCENT AUTO 8 % (4-13); Mean Corpuscular HGB 28.6 pg (26.0-34.0); Mean Corpuscular HGB Conc 33.1 g/dL (31.5-36.5); Mean Corpuscular Volume 86 fL (80-100); Mean Platelet Volume 10.9 fL (9.1-12.4); NEUTROPHILS ABSOLUTE AUTO 8.29 K/mm3 (1.96-9.15); NEUTROPHILS PERCENT AUTO 73 % (41-73); Platelet Count 287 K/mm3 (150-400); RDW Coefficient Variation 13.3 % (11.7-14.2); RDW Standard Deviation 41.5 fL (35.1-46.3); Red Blood Cell Count 4.19 M/mm3 (4.30-5.90); White Blood Cell Count 11.28 K/mm3 (4.00-11.30)
[2022-02-04 05:52] LABS: Bun/Creatinine Ratio 12.8 (12.0-20.0); Calcium, Blood 9.7 mg/dL (8.5-10.1); Creatinine, Blood 0.55 mg/dL (0.60-1.20); Potassium, Blood 3.2 mmol/L (3.5-5.5)
[2022-02-04] MEDS ORDERED: QUET300 PO (14:45)
[2022-02-04] MEDS ORDERED: VISBIOME 112.51 EACH PO (14:46)
[2022-02-04] MEDS ORDERED: AMOCLA875 PO (14:46)
== END 2022-02-04 17:08 | disposition home or self-care (01) | DRG 871 ==
LOC: ER 17:04 → MEDS 21:38
PROVIDERS: Emergency Medicine; Internal Medicine; ADMIT Internal Medicine
DX: A41.4 Sepsis due to anaerobes (principal); J18.9 Pneumonia, unspecified organism; G93.41 Metabolic encephalopathy; J96.01 Acute respiratory failure with hypoxia; E87.1 Hypo-osmolality and hyponatremia; Z68.43 Body mass index [BMI] 50.0-59.9, adult; E66.2 Morbid (severe) obesity with alveolar hypoventilation; N39.0 Urinary tract infection, site not specified; R65.20 Severe sepsis without septic shock; Z20.822 Contact with and (suspected) exposure to COVID-19; Z74.01 Bed confinement status; F43.10 Post-traumatic stress disorder, unspecified; I10 Essential (primary) hypertension; K21.9 Gastro-esophageal reflux disease without esophagitis; M54.9 Dorsalgia, unspecified; F25.0 Schizoaffective disorder, bipolar type; G89.29 Other chronic pain; Z87.891 Personal history of nicotine dependence; Z88.5 Allergy status to narcotic agent; Z91.018 Allergy to other foods; Z79.899 Other long term (current) drug therapy
CPT/HCPCS: 0241U; 36415; 71045; 80048; 80053; 81001; 82803; 83605; 84145; 85025; 87077; 87086; 87186; 93005; 93010; 94760; 96365; 96375; 99285-25; A9270; C9113; J0696; J1650; J2543; J7040

== ENCOUNTER → 2022-03-11 | Outpatient (CLI) | payer MEDICARE ==
[~2022-03-11] MED LIST changes: +ACET500 PO; +AMOCLA875 PO; +ASCO500 PO; +B-121000 MC4 PO; +BENZ100A PO; +BISA10S PR; +DICLOFENAC SOD100 G1 TOP; +DULCOLAX400 MG/5 M PO; +FERROUS GLUCON324 M7 PO; +FOLI1 PO; +Fleet Enema132 ML PR; +HYDHCL25 PO; +HYDR10 PO; +LACT10SY PO; +LOPE2C PO; +NYSTATIN15 GM TOP; +NYSTOP15 GM TOP; +PAIN RELIEF1 EACH TOP; +QUET300 PO; +VISBIOME 112.51 EACH PO; +VITAMIN D31000 UNI1 PO; +[UNRECOGNIZED DRUG - OTHER] TOP
[2022-03-11 13:20] LABS: Appearance, Urine Hazy (Clear); Bilirubin, Urine Neg (Neg); Blood, Urine 1+ (Neg); Glucose Qualitative, Urine Neg (Neg); Ketones, Urine Neg (Neg); Leukocyte Esterase, Urine 3+ (Neg); Nitrite, Urine Neg (Neg); Protein, Urine Neg (Neg); Urobilinogen, Urine NORM (Normal)
[2022-03-11 15:25] LABS: Color, Urine Pale Yellow (P-Yellow)
[2022-03-11 15:26] LABS: White Blood Cells, Urine 25-50 /hpf (0-5)
[2022-03-11 15:27] LABS: Bacteria Many /hpf; Squamous Epithelial Cells Rare /hpf (Few)
== END | disposition home or self-care (01) ==
LOC: LAB 11:39 → LAB SHORT 11:39
PROVIDERS: Nurse Practitioner Family
DX: N39.0 Urinary tract infection, site not specified (principal)
CPT/HCPCS: 81001; 87077; 87086; 87186